=== PATIENT | male | born 1965 | race Caucasian/White ===

== ENCOUNTER 2016-11-14 09:27 | Inpatient (IN) | payer MEDICAID ==
[~2016-11-14] VITALS: Ht 165.1 cm; Wt 74.9 kg
[2016-11-14] MEDS ORDERED: FUROSEMIDE 20 MG INJ IV STA (10:09)
--- NOTE | 2016-11-14 10:36 | ERA ---
ER Documentation Chief Complaint Date/Time DATE: 11/14/16 TIME: 10:33 Chief Complaint SOB X 1 WEEK GETTING WORSE BILAT LOWER EXTREMITIES SWELLING UP HPI This is a 51-year-old male who states that over the past week he has had gradual worsening of shortness of breath. Having dyspnea on exertion and orthopnea. Is also complaining of swelling in his legs is moving up his legs into his groin. He has no history of heart, kidney, liver failure. Has no chest pain no shortness of breath at rest. ROS All systems reviewed and are negative except as per history of present illness. Medications Home Meds Reported Medications Clonidine Hcl* (Clonidine Hcl*) 0.3 Mg Tablet, 0.3 MG PO BID Y for HTN, TAB 11/14/16 Albuterol Sulfate* (Proair HFA*) 8.5 Gm Hfa.aer.ad, 2 PUFF INH Q6H Y for WHEEZING AND SOB, #1 INHALER 11/14/16 Diltiazem Hcl* (Diltiazem XT) 300 Mg Capsule.er, 300 MG PO DAILY, #30 CAP 11/14/16 Allergies Allergies: Coded Allergies: No Known Allergy (Unverified , 11/14/16) PMhx/Soc History of Surgery: No Hx Psychiatric Problems: No Hx Miscellaneous Medical Probl: No Hx Alcohol Use: No Smoking Status: Never smoker FmHx Family History: No coronary disease Physical Exam Vitals Vital Signs Date Time Temp Pulse Resp B/P Pulse Ox O2 Delivery O2 Flow Rate FiO2 11/14/16 10:20 Nasal Cannula 2 11/14/16 09:31 96.7 116 18 143/95 95 Physical Exam Const: Well-developed, well-nourished Head: Atraumatic, normocephalic Eyes: Normal Conjunctiva, PERRLA, EOMI, normal sclera, no nystagmus ENT: Normal External Ears, Nose and Mouth, moist mucus membranes. Neck: Full range of motion. No meningismus, no lymphadenopathy. Resp: [No increased work of breathing, some scant rhonchi in the bases bilaterally cardio: Regular rate and rhythm, no murmurs, S1 S2 present Abd: Soft, non tender x 4, non distended. Normal bowel sounds, no guarding or rebound, no pulsitile abdominal masses or bruits Skin: No petechiae or rashes, no ecchymosis , no maculopapular rash Back: No midline or flank tenderness Ext: No cyanosis,+3 edema to lower extremities bilaterally up to his thigh, FROM x 4, normal inspection, neurovascularly intact x 4 Neur: Awake and alert, STR 5/5 x 4, sensation intact x 4, no focal findings, cerebellum intact Psych: Normal Mood and Affect Result Diagram: 11/14/16 1010 11/14/16 1010 Results 24 hrs Laboratory Tests Test 11/14/16 10:10 White Blood Count 12.110^3/ul Red Blood Count 4.7510^6/ul Hemoglobin 15.1g/dl Hematocrit 48.0% Mean Corpuscular Volume 101.1fl Mean Corpuscular Hemoglobin 31.8pg Mean Corpuscular Hemoglobin Concent 31.5g/dl Red Cell Distribution Width 14.0% Platelet Count 15091^3/UL Mean Platelet Volume 9.3fl Neutrophils % 75.1% Lymphocytes % 15.4% Monocytes % 8.0% Eosinophils % 0.6% Basophils % 0.4% Nucleated Red Blood Cells % 0.0/100WBC Neutrophils # 9.110^3/ul Lymphocytes # 1.910^3/ul Monocytes # 1.010^3/ul Eosinophils # 0.110^3/ul Basophils # 0.110^3/ul Nucleated Red Blood Cells # 0.010^3/ul Sodium Level 141mmol/L Potassium Level 4.3mmol/L Chloride Level 108mmol/L Carbon Dioxide Level 24mmol/L Anion Gap 13 Blood Urea Nitrogen 18mg/dl Creatinine 0.92mg/dl Glucose Level 107mg/dl Calcium Level 8.3mg/dl Total Bilirubin 0.5mg/dl Direct Bilirubin 0.00mg/dl Indirect Bilirubin 0.5mg/dl Aspartate Amino Transf (AST/SGOT) 46IU/L Alanine Aminotransferase (ALT/SGPT) 56IU/L Alkaline Phosphatase 119IU/L Troponin I 0.043ng/ml B-Type Natriuretic Peptide 9710PG/ML Total Protein 6.4g/dl Albumin 3.4g/dl Globulin 3.00g/dl Albumin/Globulin Ratio 1.13 Current Medications Medications (Trade) Dose Ordered Sig/Lynda Route PRN Reason Start Time Stop Time Status Last Admin Dose Admin Furosemide (Lasix) 60 mg ONCE STAT IV 11/14/16 10:09 9/23/17 10:11 DC 11/14/16 10:31 Procedures/MDM PROCEDURE: XR Chest 1 view. CLINICAL INDICATION: Chest pain shortness of breath. TECHNIQUE: AP views of the chest were obtained. COMPARISON: None. FINDINGS: The heart is large. Calcified atherosclerosis is noted in the aorta. Central pulmonary vascular congestion and interstitial prominence is seen in both lungs. Scattered atelectasis is noted in both lungs. Blunting of the left costophrenic angle is noted. No consolidations are identified. No pneumothorax is seen. Osseous structures are intact. IMPRESSION: Cardiomegaly with calcified atherosclerosis in the aorta. Central pulmonary vascular congestion and interstitial prominence in both lungs. Scattered atelectasis in both lungs. Blunting of the left costophrenic angle that may reflect small pleural effusion. RPTAT: AA .Juan Ramon Acharya MD, Date Time Electronically viewed and signed by .Juan Ramon Acharya MD, on 11/14/2016 11:48 .P/ CC: ANGELITA ANDRADE DO EKG: Rate/Rhythm: Sinus tachycardia with PVC QRS, ST, QT: NORMAL NM, QRS, QT] Impression: Sinus tachycardia Patient has evidence of congestive heart failure with elevated BNP and vascular congestion and cardiomegaly on his chest x-ray. He was given IV Lasix 60 mg. Limited patient for new onset CHF for cardiac workup echocardiogram etc. Departure Diagnosis: Primary Impression: CHF (congestive heart failure) Qualified Code: I50.9 - Congestive heart failure, unspecified congestive heart failure chronicity, unspecified congestive heart failure type Condition: Stable ANGELITA ANDRADE DO Nov 14, 2016 10:36
[2016-11-14 10:39] LABS: BASOPHIL # 0.1 10^3/ul (0.0-0.1); BASOPHILS % 0.4 % (0.0-2.0); EOSINOPHILS # 0.1 10^3/ul (0.0-0.5); EOSINOPHILS % 0.6 % (0.0-7.0); HEMOGLOBIN 15.1 g/dl (14.0-18.0); LYMPHOCYTES # 1.9 10^3/ul (0.8-2.9); LYMPHOCYTES % 15.4 % (15.0-51.0); MEAN CORPUSCULAR HEMOGLOBIN 31.8 pg (29.0-33.0); MEAN CORPUSCULAR HGB CONC 31.5 g/dl (32.0-37.0); MEAN CORPUSCULAR VOLUME 101.1 fl (82.0-101.0); MEAN PLATELET VOLUME 9.3 fl (7.4-10.4); NEUTROPHIL # 9.1 10^3/ul (1.6-7.5); NEUTROPHILS % 75.1 % (39.0-77.0); PLATELET COUNT 332 10^3/UL (140-415); RED BLOOD COUNT 4.75 10^6/ul (4.70-6.10); WHITE BLOOD COUNT 12.1 10^3/ul (4.8-10.8)
[2016-11-14 10:54] LABS: ALBUMIN 3.4 g/dl (3.3-4.9); ALBUMIN/GLOBULIN RATIO 1.13; BILIRUBIN,INDIRECT 0.5 mg/dl (0-1.1); BILIRUBIN,TOTAL 0.5 mg/dl (0.2-1.3); CALCIUM 8.3 mg/dl (8.4-10.2); CREATININE 0.92 mg/dl (0.61-1.24); POTASSIUM 4.3 mmol/L (3.5-5.1); TOTAL PROTEIN 6.4 g/dl (6.1-8.1)
[2016-11-14 11:05] LABS: TROPONIN-I 0.043 ng/ml (0.00-0.12)
[2016-11-14] MEDS ORDERED: DILT300C60 PO (11:15)
[2016-11-14] MEDS ORDERED: ALBU8.5H3 INH (11:23)
--- NOTE | 2016-11-14 11:48 | RADRPT ---
PROCEDURE: XR Chest 1 view. CLINICAL INDICATION: Chest pain shortness of breath. TECHNIQUE: AP views of the chest were obtained. COMPARISON: None. FINDINGS: The heart is large. Calcified atherosclerosis is noted in the aorta. Central pulmonary vascular con gestion and interstitial prominence is seen in both lungs. Scattered atelectasis is noted in both stan ngs. Blunting of the left costophrenic angle is noted. No consolidations are identified. No pneumot horax is seen. Osseous structures are intact. IMPRESSION: Cardiomegaly with calcified atherosclerosis in the aorta. Central pulmonary vascular congestion and interstitial prominence in both lungs. Scattered atelectasis in both lungs. Blunting of the left costophrenic angle that may reflect small pleural effusion. RPTAT: AA .Juan Ramon Acharya MD, MD Date Time Electronically viewed and signed by .Juan Ramon Acharya MD, MD on 11/14/2016 11:48 .P/
[2016-11-14] MEDS ORDERED: CLON0.3T PO (13:02)
[2016-11-14] MEDS ORDERED: ACETAMINOPHEN 325 MG TAB PO PRN ×2 (14:00→15:00)
[2016-11-14] MEDS ORDERED: ONDANSETRON 4 MG INJ IV PRN ×2 (14:00→15:00)
--- NOTE | 2016-11-14 14:31 | HP ---
Date/Time of Note Date/Time of Note DATE: 11/14/16 TIME: 14:30 Assessment/Plan VTE Prophylaxis VTE Prophylaxis Intervention: LMWH Lines/Catheters IV [facility] Assessment/Plan Chief Complaint/Hosp Course 1. Acute congestive heart failure exacerbation, systolic versus diastolic dysfunction. The patient has no known history of congestive heart failure. This could be a new onset. The etiology of the patient's congestive heart failure is unclear at this time. The patient is a current drug abuser and alcohol abuser. Patient will be adequately diuresed. A 2D echocardiogram will be obtained to evaluate left ventricle ejection fraction and to evaluate for any wall motion abnormalities. Cardiology consult will be obtained. 2. Essential hypertension. Patient will be started on appropriate antihypertensives. The patient will be started on beta-blockers because of possible underlying CHF as well as underlying sinus tachycardia. The patient will also be started on HEATHER inhibitors. 3. Alcohol abuse. The patient will be started on daily thiamine. He will be started on PRN IV benzodiazepines for any alcohol withdrawal delirium. The patient will be started on tapering dose of Librium. 4. Nicotine use. The patient will be provided with a nicotine patch if he has any symptoms of withdrawal. 5. Substance abuse. Urine drug toxicology will be obtained. The patient was advised on the importance of abstaining from the use of recreational drugs. Plan: The patient will be admitted to inpatient telemetry floor. The patient will be started on a low cholesterol diet. The patient will be started on DVT prophylaxis. The patient will remain a full code. Activities will be as tolerated. The rest of the patient's management will be based on the clinical course, inputs from consultants, and the results of diagnostic studies. Based on the patient's clinical presentation, he most probably requires at least 2 midnights' stay for further management and evaluation of his clinical presentation. The case and management of this patient was fully discussed with Dr. Colon. Problems: HPI/ROS Admit Date/Time Admit Date/Time Hx of Present Illness Reason for admission: Dyspnea. Consultants 1. Kris Gutierres MD, Cardiology. This is a 51-year-old male with past medical history of essential hypertension who is a current tobacco user, alcohol user, and recreational drug user. He came to the emergency room with chief complaint of dyspnea as well as bilateral lower extremity edema that has been going on for the past few days. The patient verbalized that he never had any similar presentations in the past. The patient verbalized a nonproductive cough. The patient denied any chest pain. The patient was complaining of orthopnea. The patient denied any fevers or chills. In the emergency room, the patient's chest x-ray showed cardiomegaly with calcified atherosclerosis in the aorta with the central pulmonary vascular congestion and interstitial prominence in both lungs and scattered atelectasis in both legs. The chest x-ray also revealed blunting of the left costophrenic angle that may reflect a small pleural effusion. Patient was noticed to have a BNP of 9710. Patient was given a single dose of IV Lasix 60 mg in the emergency room. ROS Constitutional: fatigue Eyes: no complaints ENT: no complaints Respiratory: cough, shortness of breath Cardiovascular: edema, orthopenea Gastrointestinal: no complaints Genitourinary: no complaints Musculoskeletal: no complaints Skin: no complaints Neurologic: no complaints Endocrine: no complaints Lymphatic: no complaints Psychological: no complaints Immunologic: no complaints PMH/Family/Social Past Medical History Medical History: hypertension Past Surgical History Past Surgical Hx: no surgical history Family History Significant Family History: heart disease Social History Alcohol Use: heavy Smoking Status: Current every day smoker Drug Use: cocaine (In the past), other (Methamphetamines) Exam/Review of Systems Vital Signs Vitals Vital Signs Date Time Temp Pulse Resp B/P Pulse Ox O2 Delivery O2 Flow Rate FiO2 11/14/16 10:20 Nasal Cannula 2 11/14/16 09:31 96.7 116 18 143/95 95 Exam Exam General: Adequately build 51 year-old male lying in bed in mild to moderate respiratory distress. HEENT: Normocephalic, atraumatic. Eyes: Anicteric sclerae, conjunctivae clear. ENT: Nasal septum midline, oral mucosa moist. Neck supple, JVD noticed. Respiratory: Bilaterally diminished breath sounds. Use of accessory muscles of respiration. B/L rales. Cardiovascular: S1, S2 heard. Regular rate and rhythm. Abdomen: Soft, nontender, and nondistended. Bowel sounds positive in all 4 quadrants. Genitourinary: Deferred. Extremities: No cyanosis, no clubbing. B/L LE 1-2+ pitting edema. Neurologic: Cranial nerves II through XII grossly intact. The patient is awake, alert, and oriented. Skin: Normal skin turgor. No skin rashes. Labs Result Diagram: 11/14/16 1010 11/14/16 1010 Procedures Procedures CXR IMPRESSION: Cardiomegaly with calcified atherosclerosis in the aorta. Central pulmonary vascular congestion and interstitial prominence in both lungs. Scattered atelectasis in both lungs. Blunting of the left costophrenic angle that may reflect small pleural effusion. 12-Lead EKG Sinus tachycardia. PVCs STAR CAMARILLO NP Nov 14, 2016 14:31
[2016-11-14 14:44] VITALS: Ht 165.1 cm; Wt 74.9 kg
[2016-11-14 14:45] VITALS: BP 147/98; PULSE 116; RESP 18
[2016-11-14 14:54] VITALS: PULSE 116
[2016-11-14] MEDS: LISINOPRIL 5 MG TAB PO SCH (14:58)
[2016-11-14] MEDS ORDERED: NACL 0.9% 3 ML SYG IV SCH (15:00)
[2016-11-14 16:10] VITALS: PULSE 126
[2016-11-14] MEDS: NICOTINE (14 MG/24 HR) PATCH TRANSDERM SCH (16:30)
[2016-11-14 16:42] VITALS: BP 110/57; RESP 18
[2016-11-14] MEDS: FUROSEMIDE 40 MG INJ IV SCH (18:03)
[2016-11-14 18:33] LABS: TROPONIN-I 0.045 ng/ml (0.00-0.12)
[2016-11-14 18:35] LABS: CK-MB 5.95 ng/ml (0.0-2.4)
[2016-11-14 19:28] VITALS: BP 152/103; RESP 16
[2016-11-14 20:05] VITALS: PULSE 120
[2016-11-14] MEDS: CHLORDIAZEPOXIDE 25 MG CAP PO SCH (20:52)
[2016-11-14] MEDS: LEVALBUTEROL (NEB) 0.63 MG/3 ML AMP HHN PRN (22:42)
[2016-11-14 22:46] LABS: BARBITURATES Negative (NEGATIVE); BENZODIAZEPINES Negative (NEGATIVE); CANNABINOIDS Negative (NEGATIVE); COCAINE Negative (NEGATIVE); OPIATES Negative (NEGATIVE)
[2016-11-15] VITALS (11 sets, daily range): BP systolic 115–151; BP diastolic 72–108; PULSE 100–108; RESP 16–20
[2016-11-15] MEDS: LORAZEPAM 2 MG INJ IV PRN ×6 (01:45→20:42)
--- NOTE | 2016-11-15 02:22 | CONS ---
DATE OF ADMISSION: 11/14/2016 DATE OF CONSULTATION: 11/14/2016 REFERRING PHYSICIAN: Do Machado MD HISTORY OF PRESENT ILLNESS: Dear Dr. Machado: Thank you very much for asking me to evaluate Mr. Thomas. Mr. Thomas is a 51-year-old male who was admitted through emergency room because of complaints of shortness of breath and increasing leg edema over the last 5 days. He also has been having some orthopnea and dyspnea on exertion. Patient mentioned that he had not had these symptoms before ever. Denies any chest pain, palpitations or dizziness. PAST MEDICAL HISTORY: He has a history of hypertension. SOCIAL HISTORY: He smokes a pack a day, off and on for the last 37 years. He also drinks more than a pink of whiskey every day, has quit off and on in the past and has been doing it for the past 35 years. Also, uses drugs. In the past, he used to use cocaine, now he uses crystal. He used it last time 2 days ago. FAMILY HISTORY: His father had CHF and hypertension. ALLERGIES: HE HAS NO KNOWN ALLERGIES. MEDICATIONS: He is on Cardizem 300 mg once a day, and clonidine 3.2 mg p.o. b.i.d. REVIEW OF SYSTEMS: Otherwise unremarkable. PHYSICAL EXAMINATION: GENERAL: He is conscious, alert, oriented, appears to be in no acute distress. VITAL SIGNS: Reveal a blood pressure of 158/106, heart rate of 114, respiratory rate 44, and he is afebrile. HEENT: Reveals normocephaly. Face: No xanthelasma, no facial droop. NECK: JVP is not raised and carotid pulses with normal upstroke without any bruits or murmurs. No thyromegaly or lymphadenopathy. CHEST: Reveals bilaterally symmetrical. Nontender chest. HEART: Reveals PMI is localized in the fourth ventricular space in the midclavicular line. S1, S2 are regular, and a 1/6 systolic murmur is heard at the apex. No gallop, rub or thrill appreciated. LUNGS: Reveals rare basilar rhonchi. No intercostal retractions are seen. ABDOMEN: Soft, nontender belly with moderate obesity. Bowel sounds present. No organomegaly appreciated. No palpable. No abdominal bruits are heard. EXTREMITIES: Good femoral pulses and weak pedal pulses. No femoral bruits and 1+ pedal edema. No clubbing, no cyanosis. LABORATORY DATA: Reveals that his white count is slightly elevated at 12.1, and hemoglobin is normal at 15.1. Platelet count also normal at 332,000. Chemistries reveal TSH is normal at 3.28, and BNP is elevated at 9710. Sodium, potassium, BUN and creatinine are within normal limits. Chest x-ray shows CHF. EKG shows sinus tachycardia and occasional PVCs with poor R wave progression with possibility of old anterior myocardial infarction. IMPRESSION: Mr. Thomas is a 51-year-old male with a past medical history of hypertension who is admitted now because of leg edema and shortness of breath for the last five days, and chest x-ray showed congestive heart failure and he also has elevated brain natriuretic peptide. In view of the history and physical findings, eventual diagnosis at this stage includes: 1. Shortness of breath and leg edema probably secondary to congestive heart failure. 2. Congestive heart failure, rule out acute myocardial infarction. 3. Abnormal EKG with possible old anteroseptal myocardial infarction. 4. Sinus tachycardia which may be because of low cardiac output. 5. Premature ventricular contractions which may suggest the possibility of ischemia. 6. The leg edema may be because of his being on Cardizem. 7. Uncontrolled hypertension. RECOMMENDATIONS: 1. Patient should be admitted to telemetry. 2. Will continue with the Coreg that you started on this patient along with Lovenox for DVT prophylaxis. Will continue with IV Lasix that you started on this patient as well, and will also continue with the lisinopril that you started and will use Catapres on p.r.n. basis to control his blood pressure and will get a follow up basic metabolic panel and chest x-ray and BNP in the morning, and will also get an echo Doppler study to assess the left ventricular function and to assess the valvular status. Will also obtain serial EKGs and enzymes, and will make further recommendations depending on the patient's progress in the hospital and depending on the results of investigations. Prognosis at this stage is fair. Thank you once again, Dr. Machado, for this kind referral. It is a pleasure working with you. Dictated By: Kris Gutierres MD /allison/radha /Document#: [id number]
[2016-11-15] MEDS: FUROSEMIDE 40 MG INJ IV SCH ×2 (05:53→17:52)
[2016-11-15] MEDS: LEVALBUTEROL (NEB) 0.63 MG/3 ML AMP HHN PRN (08:17)
[2016-11-15 08:29] LABS: BASOPHIL # 0.1 10^3/ul (0.0-0.1); BASOPHILS % 0.5 % (0.0-2.0); EOSINOPHILS # 0.2 10^3/ul (0.0-0.5); EOSINOPHILS % 1.4 % (0.0-7.0); HEMATOCRIT 49.1 % (42.0-52.0); HEMOGLOBIN 15.5 g/dl (14.0-18.0); LYMPHOCYTES # 2.4 10^3/ul (0.8-2.9); LYMPHOCYTES % 23.1 % (15.0-51.0); MEAN CORPUSCULAR HEMOGLOBIN 31.9 pg (29.0-33.0); MEAN CORPUSCULAR HGB CONC 31.6 g/dl (32.0-37.0); MEAN PLATELET VOLUME 9.2 fl (7.4-10.4); MONOCYTE # 0.9 10^3/ul (0.3-0.9); MONOCYTES % 8.5 % (0.0-11.0); NEUTROPHIL # 6.9 10^3/ul (1.6-7.5); PLATELET COUNT 318 10^3/UL (140-415); RED BLOOD COUNT 4.86 10^6/ul (4.70-6.10); RED CELL DISTRIBUTION WIDTH 14.1 % (11.5-14.5); WHITE BLOOD COUNT 10.4 10^3/ul (4.8-10.8)
[2016-11-15 08:38] LABS: INR 1.07; PROTIME 13.9 Sec (12.2-14.2); PT RATIO 1.1
[2016-11-15 08:52] LABS: ALBUMIN 3.2 g/dl (3.3-4.9); ALBUMIN/GLOBULIN RATIO 1.06; BILIRUBIN,INDIRECT 0.8 mg/dl (0-1.1); BILIRUBIN,TOTAL 0.8 mg/dl (0.2-1.3); CALCIUM 8.8 mg/dl (8.4-10.2); CREATININE 1.08 mg/dl (0.61-1.24); POTASSIUM 4.4 mmol/L (3.5-5.1); TOTAL PROTEIN 6.2 g/dl (6.1-8.1)
[2016-11-15] MEDS: ENOXAPARIN 40 MG/0.4 ML SYG SC SCH (09:00)
[2016-11-15] MEDS ORDERED: INFLUENZA VIRUS VACCINE 0.5 ML SYG IM* ONE (09:00)
[2016-11-15] MEDS: NICOTINE (14 MG/24 HR) PATCH TRANSDERM SCH (09:00)
[2016-11-15] MEDS: LISINOPRIL 5 MG TAB PO SCH (09:35)
[2016-11-15] MEDS: THIAMINE 100 MG TAB PO SCH (09:35)
[2016-11-15] MEDS: CHLORDIAZEPOXIDE 25 MG CAP PO SCH ×3 (09:36→20:38)
[2016-11-15 09:38] LABS: TROPONIN-I 0.043 ng/ml (0.00-0.12)
[2016-11-15 09:44] LABS: CHOL/HDL RATIO 4.8 RATIO; CK-MB 4.93 ng/ml (0.0-2.4); MAGNESIUM 1.8 mg/dl (1.7-2.5)
--- NOTE | 2016-11-15 13:17 | PN ---
Date/Time of Note Date/Time of Note DATE: 11/15/16 TIME: 13:11 Assessment/Plan VTE Prophylaxis VTE Prophylaxis Intervention: LMWH Lines/Catheters IV [facility] Peripheral IV Urinary Cath still in place: No Assessment/Plan Chief Complaint/Hosp Course 1. Acute congestive heart failure exacerbation, systolic versus diastolic dysfunction. The patient has no known history of congestive heart failure. Continue aggressive diuresis. Cardiology following. Pending 2D cardiogram. Troponins negative. 2. Essential hypertension. Continue beta blockers and HEATHER inhibitors. 3. Alcohol abuse. Underlying alcohol withdrawal delirium. He will be continued on PRN IV benzodiazepines for any alcohol withdrawal delirium. The patient will be entertained on tapering dose of Librium. 4. Nicotine use. The patient will be provided with a nicotine patch if he has any symptoms of withdrawal. 5. Substance abuse. Urine drug toxicology negative. The patient was advised on the importance of abstaining from the use of recreational drugs. 6. Fluids, electrolytes, and nutrition. Low-cholesterol diet. 7. DVT prophylaxis. Cutaneous Lovenox. 8. Plan. Continue diuresis. Await 2D echocardiogram results. Monitor for sending delirium tremens. May be moved out of Tele if cleared by Cardiology. Case discussed with Dr. Trevino. Plan: The patient will be admitted to inpatient telemetry floor. The patient will be started on a low cholesterol diet. The patient will be started on DVT prophylaxis. The patient will remain a full code. Activities will be as tolerated. The rest of the patient's management will be based on the clinical course, inputs from consultants, and the results of diagnostic studies. Based on the patient's clinical presentation, he most probably requires at least 2 midnights' stay for further management and evaluation of his clinical presentation. The case and management of this patient was fully discussed with Dr. Colon. Problems: Subjective 24 Hr Interval Summary Free Text/Dictation He denies any chest pain. Denies any dyspnea. He complains of being anxious. Exam/Review of Systems Vital Signs Vitals Vital Signs Date Time Temp Pulse Resp B/P Pulse Ox O2 Delivery O2 Flow Rate FiO2 11/15/16 12:08 101 11/15/16 11:58 98.0 18 115/72 98 11/15/16 08:19 21 11/15/16 01:26 3.0 11/14/16 14:45 Room Air Intake and Output 9/23/17 9/23/17 9/24/17 15:00 23:00 07:00 Intake Total 520 ml 380 ml Output Total 1200 ml Balance 520 ml -820 ml Exam General: Adequately build 51 year-old male lying in bed in mild to moderate respiratory distress. HEENT: Normocephalic, atraumatic. Eyes: Anicteric sclerae, conjunctivae clear. ENT: Nasal septum midline, oral mucosa moist. Neck supple. Minimal JVD noticed. Respiratory: Bilaterally diminished breath sounds. No use of accessory muscles of respiration. Cardiovascular: S1, S2 heard. Regular rate and rhythm. Abdomen: Soft, nontender, and nondistended. Bowel sounds positive in all 4 quadrants. Genitourinary: Deferred. Extremities: No cyanosis, no clubbing. B/L LE 1-2+ pitting edema. Neurologic: Cranial nerves II through XII grossly intact. The patient is awake, alert, and oriented. Skin: Normal skin turgor. No skin rashes. Psychologic: Very anxious and restless. Results Result Diagram: 11/15/16 0732 11/15/16 0732 Results 24 hrs Laboratory Tests Test 11/14/16 17:52 11/14/16 22:00 11/15/16 07:32 Creatine Kinase 159 96 Creatine Kinase Index 3.7 5.1 Creatinine Kinase MB (Mass) 5.95 H 4.93 H Troponin I 0.045 0.043 Urine Opiates Screen Negative Urine Barbiturates Negative Urine Amphetamines Screen Negative Urine Benzodiazepines Screen Negative Urine Cocaine Screen Negative Urine Cannabinoids Negative White Blood Count 10.4 Red Blood Count 4.86 Hemoglobin 15.5 Hematocrit 49.1 Mean Corpuscular Volume 101.0 Mean Corpuscular Hemoglobin 31.9 Mean Corpuscular Hemoglobin Concent 31.6 L Red Cell Distribution Width 14.1 Platelet Count 318 Mean Platelet Volume 9.2 Neutrophils % 66.0 Lymphocytes % 23.1 Monocytes % 8.5 Eosinophils % 1.4 Basophils % 0.5 Nucleated Red Blood Cells % 0.0 Neutrophils # 6.9 Lymphocytes # 2.4 Monocytes # 0.9 Eosinophils # 0.2 Basophils # 0.1 Nucleated Red Blood Cells # 0.0 Prothrombin Time 13.9 Prothrombin Time Ratio 1.1 INR International Normalized Ratio 1.07 Activated Partial Thromboplast Time 26.0 Sodium Level 143 Potassium Level 4.4 Chloride Level 104 Carbon Dioxide Level 32 H Anion Gap 11 Blood Urea Nitrogen 25 H Creatinine 1.08 Glucose Level 93 Calcium Level 8.8 Magnesium Level 1.8 Total Bilirubin 0.8 Direct Bilirubin 0.00 Indirect Bilirubin 0.8 Aspartate Amino Transf (AST/SGOT) 45 Alanine Aminotransferase (ALT/SGPT) 51 Alkaline Phosphatase 117 B-Type Natriuretic Peptide 7260 H Total Protein 6.2 Albumin 3.2 L Globulin 3.00 Albumin/Globulin Ratio 1.06 Triglycerides Level 113 Cholesterol Level 146 LDL Cholesterol, Calculated 93 HDL Cholesterol 30 Cholesterol/HDL Ratio 4.8 Medications Medications Current Medications Lisinopril (Zestril) 5 mg DAILY PO Last administered on 11/15/16 09:35; Admin Dose 5 MG; Start 11/14/16 at 14:00 Carvedilol (Coreg) 3.125 mg BID PO Last administered on 11/15/16 09:36; Admin Dose 3.125 MG; Start 11/14/16 at 21:00 Ondansetron HCl (Zofran Inj) 4 mg Q6H PRN IV NAUSEA AND/OR VOMITING; Start at 15:00 Acetaminophen (Tylenol Tab) 650 mg Q6H PRN PO PAIN LEVEL 1-3 OR FEVER; Start at 15:00 Acetaminophen/ Hydrocodone Bitart (Rush (5/325)) 1 tab Q6H PRN PO PAIN LEVEL 4 -6; Start 11/14/16 at 15:00 Enoxaparin Sodium (Lovenox) 40 mg DAILY SC ; Start 11/15/16 at 09:00 Thiamine HCl (Vitamin B1) 100 mg DAILY PO Last administered on 11/15/16 09:35 ; Admin Dose 100 MG; Start 11/15/16 at 09:00 Lorazepam (Ativan) 1 mg Q2H PRN IV Anxiety Last administered on 11/15/16 09:42 ; Admin Dose 1 MG; Start 11/14/16 at 15:30 Chlordiazepoxide (Librium) 25 mg TID PO Last administered on 11/15/16 09:36; Admin Dose 25 MG; Start 11/14/16 at 21:00 Nicotine (Nicoderm 14 Mg/ 24hr) 1 patch DAILY TRANSDERM ; Start 11/14/16 at 16: 30 Clonidine (Catapres) 0.1 mg Q4H PRN GTB HTN; Start 11/14/16 at 16:00 STAR CAMARILLO NP Nov 15, 2016 13:17
--- NOTE | 2016-11-15 14:45 | CONS ---
Date/Time of Note Date/Time of Note DATE: 11/15/16 TIME: 14:39 Assessment/Plan Assessment/Plan Additional Assessment/Plan 1. Shortness of breath and leg edema probably secondary to congestive heart failure. 2. Congestive heart failure: improving 3. Abnormal EKG with possible old anteroseptal myocardial infarction. 4. Sinus tachycardia which may be because of low cardiac output. 5. Premature ventricular contractions: better 6. The leg edema may be because of his being on Cardizem or CHF 7. Controlled Hypertension. 8.High BNP 2nd to CHF RECOMMENDATIONS: 1. OK to transfer to med surg 2. BNP in AM Consultation Date/Type/Reason Admit Date/Time Nov 14, 2016 at 14:45 Initial Consult Date 24 HR Interval Summary Free Text/Dictation ROS: SOB and edema are better No fever, no chills, no nausea, no vomiting, no diarrhea/constipation No recent weight changes No palpitations No chest pain, No dizziness, blurred vision No thirst, no heat or cold intolerance Exam/Review of Systems Vital Signs Vitals Vital Signs Date Time Temp Pulse Resp B/P Pulse Ox O2 Delivery O2 Flow Rate FiO2 11/15/16 12:08 101 11/15/16 11:58 98.0 18 115/72 98 11/15/16 08:19 21 11/15/16 01:26 3.0 11/14/16 14:45 Room Air Intake and Output 11/14/16 11/14/16 11/15/16 15:00 23:00 07:00 Intake Total 520 ml 380 ml Output Total 1200 ml Balance 520 ml -820 ml Exam General: WN/WD HEENT: Unicetric/atraumatic/ no assymetry NECK: JVD not elevated, no thyromegaly, carotids revealed normal upstrokes Lymph: no lymphadenopathy HEART: regular with no S3, I/ systolic murmur at apex LUNGS: clear ABD: soft, NT, ND, +BS, no organomegaly Neuro: no deficit SKIN: no leisons EXT: 1+ edema Results Result Diagram: 11/15/16 0732 11/15/16 0732 Results 24 hrs Laboratory Tests Test 11/14/16 17:52 11/14/16 22:00 11/15/16 07:32 Creatine Kinase 159 96 Creatine Kinase Index 3.7 5.1 Creatinine Kinase MB (Mass) 5.95 H 4.93 H Troponin I 0.045 0.043 Urine Opiates Screen Negative Urine Barbiturates Negative Urine Amphetamines Screen Negative Urine Benzodiazepines Screen Negative Urine Cocaine Screen Negative Urine Cannabinoids Negative White Blood Count 10.4 Red Blood Count 4.86 Hemoglobin 15.5 Hematocrit 49.1 Mean Corpuscular Volume 101.0 Mean Corpuscular Hemoglobin 31.9 Mean Corpuscular Hemoglobin Concent 31.6 L Red Cell Distribution Width 14.1 Platelet Count 318 Mean Platelet Volume 9.2 Neutrophils % 66.0 Lymphocytes % 23.1 Monocytes % 8.5 Eosinophils % 1.4 Basophils % 0.5 Nucleated Red Blood Cells % 0.0 Neutrophils # 6.9 Lymphocytes # 2.4 Monocytes # 0.9 Eosinophils # 0.2 Basophils # 0.1 Nucleated Red Blood Cells # 0.0 Prothrombin Time 13.9 Prothrombin Time Ratio 1.1 INR International Normalized Ratio 1.07 Activated Partial Thromboplast Time 26.0 Sodium Level 143 Potassium Level 4.4 Chloride Level 104 Carbon Dioxide Level 32 H Anion Gap 11 Blood Urea Nitrogen 25 H Creatinine 1.08 Glucose Level 93 Calcium Level 8.8 Magnesium Level 1.8 Total Bilirubin 0.8 Direct Bilirubin 0.00 Indirect Bilirubin 0.8 Aspartate Amino Transf (AST/SGOT) 45 Alanine Aminotransferase (ALT/SGPT) 51 Alkaline Phosphatase 117 B-Type Natriuretic Peptide 7260 H Total Protein 6.2 Albumin 3.2 L Globulin 3.00 Albumin/Globulin Ratio 1.06 Triglycerides Level 113 Cholesterol Level 146 LDL Cholesterol, Calculated 93 HDL Cholesterol 30 Cholesterol/HDL Ratio 4.8 Medications Medications Current Medications Lisinopril (Zestril) 5 mg DAILY PO Last administered on 11/15/16 09:35; Admin Dose 5 MG; Start 11/14/16 at 14:00 Carvedilol (Coreg) 3.125 mg BID PO Last administered on 11/15/16 09:36; Admin Dose 3.125 MG; Start 11/14/16 at 21:00 Ondansetron HCl (Zofran Inj) 4 mg Q6H PRN IV NAUSEA AND/OR VOMITING; Start at 15:00 Acetaminophen (Tylenol Tab) 650 mg Q6H PRN PO PAIN LEVEL 1-3 OR FEVER; Start at 15:00 Acetaminophen/ Hydrocodone Bitart ([place] (5/325)) 1 tab Q6H PRN PO PAIN LEVEL 4 -6; Start 11/14/16 at 15:00 Enoxaparin Sodium (Lovenox) 40 mg DAILY SC ; Start 11/15/16 at 09:00 Thiamine HCl (Vitamin B1) 100 mg DAILY PO Last administered on 11/15/16 09:35 ; Admin Dose 100 MG; Start 11/15/16 at 09:00 Lorazepam (Ativan) 1 mg Q2H PRN IV Anxiety Last administered on 11/15/16 12:44 ; Admin Dose 1 MG; Start 11/14/16 at 15:30 Chlordiazepoxide (Librium) 25 mg TID PO Last administered on 11/15/16 14:06; Admin Dose 25 MG; Start 11/14/16 at 21:00 Nicotine (Nicoderm 14 Mg/ 24hr) 1 patch DAILY TRANSDERM ; Start 11/14/16 at 16: 30 Clonidine (Catapres) 0.1 mg Q4H PRN GTB HTN; Start 11/14/16 at 16:00 JORDAN PARIKH MD Nov 15, 2016 14:45
[2016-11-16] VITALS (9 sets, daily range): BP systolic 100–142; BP diastolic 71–98; PULSE 113–121; RESP 16–20
[2016-11-16] MEDS: FUROSEMIDE 40 MG INJ IV SCH ×2 (05:36→17:53)
[2016-11-16] MEDS: LORAZEPAM 2 MG INJ IV PRN ×2 (05:37→11:55)
[2016-11-16 07:50] LABS: BASOPHIL # 0.1 10^3/ul (0.0-0.1); BASOPHILS % 0.4 % (0.0-2.0); EOSINOPHILS # 0.1 10^3/ul (0.0-0.5); EOSINOPHILS % 0.8 % (0.0-7.0); HEMATOCRIT 50.4 % (42.0-52.0); LYMPHOCYTES # 1.3 10^3/ul (0.8-2.9); LYMPHOCYTES % 9.7 % (15.0-51.0); MEAN CORPUSCULAR HEMOGLOBIN 31.7 pg (29.0-33.0); MEAN CORPUSCULAR HGB CONC 31.7 g/dl (32.0-37.0); MEAN PLATELET VOLUME 8.8 fl (7.4-10.4); MONOCYTE # 1.1 10^3/ul (0.3-0.9); MONOCYTES % 7.8 % (0.0-11.0); NEUTROPHILS % 80.8 % (39.0-77.0); PLATELET COUNT 304 10^3/UL (140-415); RED BLOOD COUNT 5.04 10^6/ul (4.70-6.10); RED CELL DISTRIBUTION WIDTH 13.9 % (11.5-14.5); WHITE BLOOD COUNT 13.7 10^3/ul (4.8-10.8)
[2016-11-16 08:16] LABS: CALCIUM 9.1 mg/dl (8.4-10.2); CREATININE 1.12 mg/dl (0.61-1.24); POTASSIUM 3.5 mmol/L (3.5-5.1)
[2016-11-16 08:20] LABS: MAGNESIUM 1.6 mg/dl (1.7-2.5); PHOSPHORUS 4.4 mg/dl (2.5-4.9)
[2016-11-16] MEDS: LISINOPRIL 5 MG TAB PO SCH (08:30)
[2016-11-16] MEDS: THIAMINE 100 MG TAB PO SCH (08:31)
--- NOTE | 2016-11-16 08:39 | RADRPT ---
Vent Rate: 111 bpm RR Interval: 0 msec MN Interval: 132 msec QRS Duration: 90 msec QT Interval: 356 msec QTC Interval: 484 msec P-R-T Br[place]: 50 - 85 - 65 degrees Sinus tachycardia Possible Left atrial enlargement Borderline ECG Electronically Signed By: Constantin Calderon [id number]
[2016-11-16] MEDS: ENOXAPARIN 40 MG/0.4 ML SYG SC SCH (08:43)
[2016-11-16] MEDS: NICOTINE (14 MG/24 HR) PATCH TRANSDERM SCH (08:47)
[2016-11-16] MEDS: CHLORDIAZEPOXIDE 25 MG CAP PO SCH ×2 (08:47→22:16)
[2016-11-16] MEDS ORDERED: MAGNESIUM SULFATE 2 GM/50 ML 50 ML IVPB ONE (11:00)
[2016-11-16] MEDS ORDERED: FLUMAZENIL 0.5 MG INJ ONE (13:18)
[2016-11-16] MEDS ORDERED: CHLORDIAZEPOXIDE 25 MG CAP PO STA (13:41)
[2016-11-16 13:46] LABS: AADO2 Arterial 287.8 mmHg (7.0-24.0); Allen Test ACCEPTAB; Arterial Base Excess 5.1 mmol/L (-3.0-3); Arterial Fraction of Oxyhgb 96.5 % (93.0-99.0); Arterial HCO3 29.3 mmol/L (22.0-26.0); Arterial MetHb 0.3 % (0.0-1.5); Arterial Total Hemglobin 16.3 g/dl (12.0-18.0); MODE MASK - SIMPLE
--- NOTE | 2016-11-16 14:20 | RADRPT ---
PROCEDURE: Chest 1 views. CLINICAL INDICATION: Shortness of breath. TECHNIQUE: AP views of the chest was obtained. COMPARISON: November 14, 2016 FINDINGS: The heart is large. Blunting of the left costophrenic angle is identified. Atelectasis is noted at t he left lung base. Atelectasis is seen at the right lung base. No consolidations are identified. N o pneumothorax is seen. Osseous structures are intact. IMPRESSION: Cardiomegaly . Stable blunting of the left costophrenic angle that may reflect small pleural effusion. Atelectasis at the lung bases. RPTAT: AA .Juan Ramon Acharya MD, MD Date Time Electronically viewed and signed by .Juan Ramon Acharya MD, on 11/16/2016 14:20 .P/
--- NOTE | 2016-11-16 14:38 | PN ---
Date/Time of Note Date/Time of Note DATE: 11/16/16 TIME: 14:30 Assessment/Plan VTE Prophylaxis VTE Prophylaxis Intervention: SCD's Lines/Catheters IV Catheter Type (from Rust): Saline Lock Urinary Cath still in place: No Assessment/Plan Chief Complaint/Hosp Course Assessment and plan 1. Acute CHF exacerbation. Cardiology is following. Echocardiogram pending. Troponins negative so far. Follow-up cardiology recommendations. 2. Essential hypertension. Continue antihypertensives and adjust 3. History of alcohol abuse. Suspect underlying alcohol withdrawal. Continue with benzodiazepines as needed. Continue Librium. 4. Cigarette smoking. Patient educated about cessation. Refusing nicotine patch at this time 5. History of substance abuse. Patient educated about illicit drug use cessation. Disposition and plan: Patient noted with increased shortness of breath at this time. More tachycardic. Suspect going through alcohol withdrawal. Transfer to telemetry for further monitoring. Continue with O2 supplement. Discussed plan of care with Dr. De La Garza Problems: Subjective 24 Hr Interval Summary Free Text/Dictation With worse breathing at this time Exam/Review of Systems Vital Signs Vitals Vital Signs Date Time Temp Pulse Resp B/P Pulse Ox O2 Delivery O2 Flow Rate FiO2 11/16/16 13:15 Nasal Cannula 4.0 11/16/16 10:28 97.7 115 20 112/73 93 11/15/16 08:19 21 Intake and Output 11/15/16 11/15/16 11/16/16 15:00 23:00 07:00 Intake Total 800 ml 500 ml Output Total 2700 ml 2550 ml Balance -1900 ml -2050 ml Exam Constitutional: oriented Psych: anxiety Head: normocephalic Eyes: nl conjunctiva Respiratory: diminished breath sounds Cardiovascular: other (tachycardic) Musculoskeletal: nl extremities to inspection Neurological: DATA ENTRY COORDINATOR II-XII intact, nl mental status, nl speech Results Result Diagram: 11/16/16 0720 11/16/16 0721 Results 24 hrs Laboratory Tests Test 11/16/16 07:20 11/16/16 07:21 11/16/16 13:18 11/16/16 13:37 White Blood Count 13.7 #H Red Blood Count 5.04 Hemoglobin 16.0 Hematocrit 50.4 Mean Corpuscular Volume 100.0 Mean Corpuscular Hemoglobin 31.7 Mean Corpuscular Hemoglobin Concent 31.7 L Red Cell Distribution Width 13.9 Platelet Count 304 Mean Platelet Volume 8.8 Neutrophils % 80.8 H Lymphocytes % 9.7 L Monocytes % 7.8 Eosinophils % 0.8 Basophils % 0.4 Nucleated Red Blood Cells % 0.0 Neutrophils # 11.0 H Lymphocytes # 1.3 Monocytes # 1.1 H Eosinophils # 0.1 Basophils # 0.1 Nucleated Red Blood Cells # 0.0 Sodium Level 141 Potassium Level 3.5 Chloride Level 101 Carbon Dioxide Level 35 H Anion Gap 9 Blood Urea Nitrogen 26 H Creatinine 1.12 Glucose Level 118 Calcium Level 9.1 Phosphorus Level 4.4 Magnesium Level 1.6 L B-Type Natriuretic Peptide 6660 H Bedside Glucose 145 Blood Gas Specimen Source Blood arterial Arterial Blood Date Drawn 11/16/2016 1:35:05 PM Arterial Blood pH (Temp corrected) 7.469 H Arterial Blood pCO2 (Temp correct) 41.3 Arterial Blood pO2 (Temp corrected) 101.8 H Arterial Blood HCO3 29.3 H Arterial Blood Base Excess 5.1 H Arterial Blood Oxygen Saturation 97.8 Shyam Test ACCEPTAB Arterial Blood Gas Puncture Site Right Radial Arterial Blood Carboxyhemoglobin 1.0 Arterial Blood Methemoglobin 0.3 Blood Gas A-a O2 Differential 287.8 H Oxyhemoglobin Percent 96.5 Total Hemoglobin 16.3 Blood Gas Temperature 37.0 Blood Gas Modality MASK - SIMPLE FiO2 61.0 Blood Gas Notified Whom JLD Blood Gas Notified Time 11/16/2016 1:46:00 PM Medications Medications Current Medications Lisinopril (Zestril) 5 mg DAILY PO Last administered on 11/16/16 08:30; Admin Dose 5 MG; Start 11/14/16 at 14:00 Ondansetron HCl (Zofran Inj) 4 mg Q6H PRN IV NAUSEA AND/OR VOMITING; Start at 15:00 Acetaminophen (Tylenol Tab) 650 mg Q6H PRN PO PAIN LEVEL 1-3 OR FEVER; Start at 15:00 Acetaminophen/ Hydrocodone Bitart ([place] (5/325)) 1 tab Q6H PRN PO PAIN LEVEL 4 -6; Start 11/14/16 at 15:00 Enoxaparin Sodium (Lovenox) 40 mg DAILY SC Last administered on 11/16/16 08:43 ; Admin Dose 40 MG; Start 11/15/16 at 09:00 Thiamine HCl (Vitamin B1) 100 mg DAILY PO Last administered on 11/16/16 08:31 ; Admin Dose 100 MG; Start 11/15/16 at 09:00 Nicotine (Nicoderm 14 Mg/ 24hr) 1 patch DAILY TRANSDERM ; Start 11/14/16 at 16: 30 Clonidine (Catapres) 0.1 mg Q4H PRN GTB HTN; Start 11/14/16 at 16:00 Chlordiazepoxide (Librium) 50 mg TID PO ; Start 11/16/16 at 21:00 Lorazepam (Ativan) 1 mg Q1HWA PRN IV Anxiety; Start 11/16/16 at 14:00 Carvedilol (Coreg) 3.125 mg ONCE ONCE PO Last administered on 11/16/16 14:21 ; Admin Dose 3.125 MG; Start 11/16/16 at 14:30; Stop 11/16/16 at 14:31 Carvedilol (Coreg) 6.25 mg BID PO ; Start 11/16/16 at 21:00 DOMINIQUE MEDINA Nov 16, 2016 14:38
--- NOTE | 2016-11-16 15:10 | RADRPT ---
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 Location: [address] Ref. Physician: STAR CAMARILLO Quality: Adequate Procedures: Transthoracic echocardiogram with complete 2D, M-Mode, and doppler examination. Indications: Evaluate Left Ventricular function. 2D/M Mode Doppler Measurement Value Normal Ranges Measurement Value Normal Ranges LVIDd 2D 6.2 3.5 - 5.6 cm AV Peak Bryn 1.2 m/sec LVIDs 2D 5.5 2.1 - 4.1 cm AV Peak PG 6.0 mmHg FS 2D 11.4 % LVOT Peak Bryn 0.6 m/sec LVPWd 2D 1.1 0.6 - 1.1 cm LVOT Peak PG 1.0 mmHg IVSd 2D 1.1 0.6 - 1.1 cm MV E Peak Bryn 1.0 m/sec IVS/LVPW 2D 1.0 MV Decel Time 127 msec AoR Diam 2D 2.3 2.0 - 3.7 cm MR Peak PG 98.0 mmHg LA/Ao 2D 2 0 - 1 MR Peak Bryn 4.9 m/sec EDV 2D 234.0 cm3 TR Peak Bryn 2.8 m/sec ESV 2D 163.0 cm3 TR Peak PG 31.0 mmHg LA Dimen 2D 4.1 2.3 - 4.0 cm RVSP 39.0 mmHg Findings Left Ventricle: Normal left ventricular wall thickness. Mild enlargement of left ventricle cavity. Severe global left ventricular systolic dysfunction. Ejection fraction is visually estimated at 25 %. Abnormal Diastolic Function. Right Ventricle: Normal right ventricular size. Mild right ventricular systolic dysfunction. Left Atrium: There is mild enlargement of left atrium. Right Atrium: The right atrium is normal in size. Mitral Valve: Mild mitral leaflet calcification. Mild mitral annular calcification. Mild to moderate mitral valve regurgitation. Aortic Valve: No significant aortic stenosis or insufficiency. Aortic cusps appear mildly calcified. Tricuspid Valve: Normal appearance of the tricuspid valve. Estimated peak PA systolic pressure 39 mmHg. There is mild to moderate tricuspid regurgitation. Pulmonic Valve: Normal pulmonic valve appearance. There is trace pulmonic regurgitation. Pericardium: Normal pericardium with no significant pericardial effusion. Aorta: Normal aortic root. IVC: Normal size with poor respiratory collapse consistent with elevated right atrial pressure. Conclusions 1.Normal left ventricular wall thickness. Mild enlargement of left ventricle cavity. Severe global left ventricular systolic dysfunction. Ejection fraction is visually estimated at 20 %. Abnormal Diastolic Function. 2.There is mild enlargement of left atrium. 3.Mild mitral leaflet calcification. Mild mitral annular calcification. Mild to moderate mitral valve regurgitation. 4.Normal appearance of the tricuspid valve. Estimated peak PA systolic pressure 40 mmHg. There is mild to moderate tricuspid regurgitation. 5.Normal size with poor respiratory collapse consistent with elevated right atrial pressure. 6.Dilated Cardiomyopathy. Electronically Signed By: Tracey Rosales 16-Nov-2016 15:09:13 -0700 Patient Name: RAFAEL CHANG Study Date: 15-Nov-2016 [id number]
--- NOTE | 2016-11-16 18:38 | CONS ---
Date/Time of Note Date/Time of Note DATE: 11/16/16 TIME: 18:30 Assessment/Plan Assessment/Plan Chief Complaint/Hosp Course IMP: 1.CHF-EF 20-25% by echo read this admission and thus systolic acute on chronic- Neg trop x 3 2.HTN 3.ETOH/substance abuse abuse 4.LE edema 5.Pos Tob REcc: -Tele -serial ecg -Continue coreg with slight increase -Continue zestril -Dose IVP digoxin to improve HR and contractility -Nicotine patch/smoking cessation -Continue benzo's Problems: Consultation Date/Type/Reason Admit Date/Time Nov 14, 2016 at 14:45 Initial Consult Date 11/15/2016 Type of Consultation: cardiology Reason for Consultation CHF/Cmy Referring Provider: DOMINIQUE MEDINA Exam/Review of Systems Vital Signs Vitals Vital Signs Date Time Temp Pulse Resp B/P Pulse Ox O2 Delivery O2 Flow Rate FiO2 11/16/16 16:00 113 11/16/16 15:20 Simple Mask 6.0 11/16/16 15:15 98.0 18 121/88 98 11/15/16 08:19 21 Intake and Output 11/15/16 11/15/16 11/16/16 15:00 23:00 07:00 Intake Total 800 ml 500 ml Output Total 2700 ml 2550 ml Balance -1900 ml -2050 ml Exam Review of Systems: CONSTITUTIONAL: No fevers, chills. PULMONARY: mild sob CARDIOVASCULAR: No chest pain/palpitations GASTROINTESTINAL: No nausea/vomiting. GENITOURINARY: No hematuria/dysuria. MUSCULOSKELETAL: No myagias/arthalgias. PSYCHIATRIC: The patient denies depression. NEUROLOGIC: No weakness Constitutional: other (sleeping) Psych: no complaints Head: normocephalic ENMT: mucosa pink and moist Neck: jvd (9-10cm water), supple Respiratory: diminished breath sounds (at bases/B) Cardiovascular: regular rate and rhythm Gastrointestinal: non-tender, soft Musculoskeletal: muscle tone (normal) Extremities: pitting pedal edema (bilateral) Results Result Diagram: 11/16/16 0720 11/16/16 0721 Results 24 hrs Laboratory Tests Test 11/16/16 07:20 11/16/16 07:21 11/16/16 13:18 11/16/16 13:37 White Blood Count 13.7 #H Red Blood Count 5.04 Hemoglobin 16.0 Hematocrit 50.4 Mean Corpuscular Volume 100.0 Mean Corpuscular Hemoglobin 31.7 Mean Corpuscular Hemoglobin Concent 31.7 L Red Cell Distribution Width 13.9 Platelet Count 304 Mean Platelet Volume 8.8 Neutrophils % 80.8 H Lymphocytes % 9.7 L Monocytes % 7.8 Eosinophils % 0.8 Basophils % 0.4 Nucleated Red Blood Cells % 0.0 Neutrophils # 11.0 H Lymphocytes # 1.3 Monocytes # 1.1 H Eosinophils # 0.1 Basophils # 0.1 Nucleated Red Blood Cells # 0.0 Sodium Level 141 Potassium Level 3.5 Chloride Level 101 Carbon Dioxide Level 35 H Anion Gap 9 Blood Urea Nitrogen 26 H Creatinine 1.12 Glucose Level 118 Calcium Level 9.1 Phosphorus Level 4.4 Magnesium Level 1.6 L B-Type Natriuretic Peptide 6660 H Bedside Glucose 145 Blood Gas Specimen Source Blood arterial Arterial Blood Date Drawn 11/16/2016 1:35:05 PM Arterial Blood pH (Temp corrected) 7.469 H Arterial Blood pCO2 (Temp correct) 41.3 Arterial Blood pO2 (Temp corrected) 101.8 H Arterial Blood HCO3 29.3 H Arterial Blood Base Excess 5.1 H Arterial Blood Oxygen Saturation 97.8 Shyam Test ACCEPTAB Arterial Blood Gas Puncture Site Right Radial Arterial Blood Carboxyhemoglobin 1.0 Arterial Blood Methemoglobin 0.3 Blood Gas A-a O2 Differential 287.8 H Oxyhemoglobin Percent 96.5 Total Hemoglobin 16.3 Blood Gas Temperature 37.0 Blood Gas Modality MASK - SIMPLE FiO2 61.0 Blood Gas Notified Whom JLD Blood Gas Notified Time 11/16/2016 1:46:00 PM Test 11/16/16 13:53 Lactic Acid Level 1.7 Ethyl Alcohol Level < 10.0 Medications Medications Current Medications Lisinopril (Zestril) 5 mg DAILY PO Last administered on 11/16/16t 08:30; Admin Dose 5 MG; Start 11/14/16 at 14:00 Ondansetron HCl (Zofran Inj) 4 mg Q6H PRN IV NAUSEA AND/OR VOMITING; Start at 15:00 Acetaminophen (Tylenol Tab) 650 mg Q6H PRN PO PAIN LEVEL 1-3 OR FEVER; Start at 15:00 Acetaminophen/ Hydrocodone Bitart ([place] (5/325)) 1 tab Q6H PRN PO PAIN LEVEL 4 -6; Start 11/14/16 at 15:00 Enoxaparin Sodium (Lovenox) 40 mg DAILY SC Last administered on 11/16/16 08:43 ; Admin Dose 40 MG; Start 11/15/16 at 09:00 Thiamine HCl (Vitamin B1) 100 mg DAILY PO Last administered on 11/16/16 08:31 ; Admin Dose 100 MG; Start 11/15/16 at 09:00 Nicotine (Nicoderm 14 Mg/ 24hr) 1 patch DAILY TRANSDERM ; Start 11/14/16 at 16: 30 Clonidine (Catapres) 0.1 mg Q4H PRN GTB HTN; Start 11/14/16 at 16:00 Chlordiazepoxide (Librium) 50 mg TID PO ; Start 11/16/16 at 21:00 Lorazepam (Ativan) 1 mg Q1HWA PRN IV Anxiety; Start 11/16/16 at 14:00 Carvedilol (Coreg) 6.25 mg BID PO ; Start 11/16/16 at 21:00 RAFAEL RUVALCABA Nov 16, 2016 18:38
[2016-11-16] MEDS: DIGOXIN 500 MCG INJ IV SCH (19:52)
[2016-11-17] VITALS (12 sets, daily range): BP systolic 100–134; BP diastolic 66–92; PULSE 97–111; RESP 18–22
[2016-11-17] MEDS: DIGOXIN 500 MCG INJ IV SCH (01:31)
[2016-11-17] MEDS: FUROSEMIDE 40 MG INJ IV SCH ×2 (05:29→18:44)
[2016-11-17 08:04] LABS: BASOPHILS % 0.3 % (0.0-2.0); EOSINOPHILS # 0.1 10^3/ul (0.0-0.5); EOSINOPHILS % 0.8 % (0.0-7.0); HEMATOCRIT 47.8 % (42.0-52.0); HEMOGLOBIN 14.6 g/dl (14.0-18.0); LYMPHOCYTES # 2.1 10^3/ul (0.8-2.9); LYMPHOCYTES % 17.3 % (15.0-51.0); MEAN CORPUSCULAR HEMOGLOBIN 30.9 pg (29.0-33.0); MEAN CORPUSCULAR HGB CONC 30.5 g/dl (32.0-37.0); MEAN CORPUSCULAR VOLUME 101.1 fl (82.0-101.0); MEAN PLATELET VOLUME 9.7 fl (7.4-10.4); MONOCYTE # 1.1 10^3/ul (0.3-0.9); MONOCYTES % 9.4 % (0.0-11.0); NEUTROPHIL # 8.7 10^3/ul (1.6-7.5); NEUTROPHILS % 71.6 % (39.0-77.0); PLATELET COUNT 258 10^3/UL (140-415); RED BLOOD COUNT 4.73 10^6/ul (4.70-6.10); RED CELL DISTRIBUTION WIDTH 14.1 % (11.5-14.5); WHITE BLOOD COUNT 12.2 10^3/ul (4.8-10.8)
[2016-11-17 08:43] LABS: CALCIUM 8.7 mg/dl (8.4-10.2); CREATININE 1.21 mg/dl (0.61-1.24); MAGNESIUM 1.9 mg/dl (1.7-2.5); POTASSIUM 3.6 mmol/L (3.5-5.1)
[2016-11-17] MEDS: THIAMINE 100 MG TAB PO SCH (09:23)
[2016-11-17] MEDS: LISINOPRIL 5 MG TAB PO SCH (09:24)
[2016-11-17] MEDS: NICOTINE (14 MG/24 HR) PATCH TRANSDERM SCH (09:25)
[2016-11-17] MEDS: ENOXAPARIN 40 MG/0.4 ML SYG SC SCH (09:27)
--- NOTE | 2016-11-17 09:32 | CONS ---
Date/Time of Note Date/Time of Note DATE: 11/17/16 TIME: 09:30 Assessment/Plan Assessment/Plan Additional Assessment/Plan 1.CHF-EF 20-25% by echo read this admission and thus systolic acute on chronic- Neg trop x 3 - now with increas tach and SOB, con;t tele monitoring 2.HTN - well rx 3.ETOH/substance abuse abuse - con't DT prophylaxis 4.LE edema - better, satble urine output 5.Pos Tob - d/c advised Consultation Date/Type/Reason Admit Date/Time Nov 14, 2016 at 14:45 Initial Consult Date Type of Consultation: cardiology Referring Provider: DOMINIQUE MEDINA 24 HR Interval Summary Free Text/Dictation To tele day prior - sinus tach - cnon't TD prophylaxis and keep euvolemic as tolerated ROS: No fever, no chills, no nausea, no vomiting, no diarrhea/constipation No recent weight changes No chest pain, no PND, no orthopnea + SOB No dizziness, blurred vision No thirst, no heat or cold intolerance Exam/Review of Systems Vital Signs Vitals Vital Signs Date Time Temp Pulse Resp B/P Pulse Ox O2 Delivery O2 Flow Rate FiO2 11/17/16 08:00 111 11/17/16 07:56 97.8 22 118/81 99 11/17/16 04:00 Nasal Cannula 5.0 11/15/16 08:19 21 Intake and Output 11/16/16 11/16/16 11/17/16 15:00 23:00 07:00 Intake Total 300 ml 400 ml 600 ml Output Total 600 ml 350 ml 900 ml Balance -300 ml 50 ml -300 ml Exam General: WN/WD/NAD, AOx 2-3 HEENT: Unicetric/atraumatic/EOMI (follow commands) NECK: JVD elevated, no thyromegaly Lymph: no lymphadenopathy HEART: regular with no S3, II/ systolic murmur at apex, PMI L LUNGS: Coarse sounds ABD: soft, NT, ND, +BS : Intact Neuro: non focal SKIN: chronic changes EXT: trace edema Results Result Diagram: 11/17/16 0714 11/17/1614 Results 24 hrs Laboratory Tests Test 11/16/16 13:18 11/16/16 13:37 11/16/16 13:53 11/17/16 07:14 Bedside Glucose 145 Blood Gas Specimen Source Blood arterial Arterial Blood Date Drawn 11/16/2016 1:35:05 PM Arterial Blood pH (Temp corrected) 7.469 H Arterial Blood pCO2 (Temp correct) 41.3 Arterial Blood pO2 (Temp corrected) 101.8 H Arterial Blood HCO3 29.3 H Arterial Blood Base Excess 5.1 H Arterial Blood Oxygen Saturation 97.8 Shyam Test ACCEPTAB Arterial Blood Gas Puncture Site Right Radial Arterial Blood Carboxyhemoglobin 1.0 Arterial Blood Methemoglobin 0.3 Blood Gas A-a O2 Differential 287.8 H Oxyhemoglobin Percent 96.5 Total Hemoglobin 16.3 Blood Gas Temperature 37.0 Blood Gas Modality MASK - SIMPLE FiO2 61.0 Blood Gas Notified Whom JLD Blood Gas Notified Time 11/16/2016 1:46:00 PM Lactic Acid Level 1.7 Ethyl Alcohol Level < 10.0 White Blood Count 12.2 H Red Blood Count 4.73 Hemoglobin 14.6 Hematocrit 47.8 Mean Corpuscular Volume 101.1 H Mean Corpuscular Hemoglobin 30.9 Mean Corpuscular Hemoglobin Concent 30.5 L Red Cell Distribution Width 14.1 Platelet Count 258 Mean Platelet Volume 9.7 Neutrophils % 71.6 Lymphocytes % 17.3 Monocytes % 9.4 Eosinophils % 0.8 Basophils % 0.3 Nucleated Red Blood Cells % 0.0 Neutrophils # 8.7 H Lymphocytes # 2.1 Monocytes # 1.1 H Eosinophils # 0.1 Basophils # 0.0 Nucleated Red Blood Cells # 0.0 Sodium Level 136 Potassium Level 3.6 Chloride Level 99 Carbon Dioxide Level 34 H Anion Gap 7 L Blood Urea Nitrogen 29 H Creatinine 1.21 Glucose Level 101 Calcium Level 8.7 Magnesium Level 1.9 Medications Medications Current Medications Lisinopril (Zestril) 5 mg DAILY PO Last administered on 11/17/16t 09:24; Admin Dose 5 MG; Start 11/14/16 at 14:00 Ondansetron HCl (Zofran Inj) 4 mg Q6H PRN IV NAUSEA AND/OR VOMITING; Start at 15:00 Acetaminophen (Tylenol Tab) 650 mg Q6H PRN PO PAIN LEVEL 1-3 OR FEVER; Start at 15:00 Acetaminophen/ Hydrocodone Bitart ([place] (5/325)) 1 tab Q6H PRN PO PAIN LEVEL 4 -6; Start 11/14/16 at 15:00 Enoxaparin Sodium (Lovenox) 40 mg DAILY SC Last administered on 11/17/16 09:27 ; Admin Dose 40 MG; Start 11/15/16 at 09:00 Thiamine HCl (Vitamin B1) 100 mg DAILY PO Last administered on 11/17/16 09:23 ; Admin Dose 100 MG; Start 11/15/16 at 09:00 Nicotine (Nicoderm 14 Mg/ 24hr) 1 patch DAILY TRANSDERM Last administered on 09:25; Admin Dose 1 PATCH; Start 11/14/16 at 16:30 Clonidine (Catapres) 0.1 mg Q4H PRN GTB HTN; Start 11/14/16 at 16:00 Chlordiazepoxide (Librium) 50 mg TID PO Last administered on 11/16/16 22:16; Admin Dose 50 MG; Start 11/16/16 at 21:00 Lorazepam (Ativan) 1 mg Q1HWA PRN IV Anxiety; Start 11/16/16 at 14:00 Carvedilol (Coreg) 6.25 mg BID PO Last administered on 11/17/16 09:24; Admin Dose 6.25 MG; Start 11/16/16 at 21:00 SHAHBAZ RAMACHANDRAN MD Nov 17, 2016 09:32
[2016-11-17] MEDS: CHLORDIAZEPOXIDE 25 MG CAP PO SCH ×3 (09:50→20:32)
--- NOTE | 2016-11-17 15:57 | PN ---
Date/Time of Note Date/Time of Note DATE: 11/17/16 TIME: 15:53 Assessment/Plan VTE Prophylaxis VTE Prophylaxis Intervention: SCD's Lines/Catheters IV [facility] Type (from [facility] Peripheral IV Urinary Cath still in place: No Assessment/Plan Chief Complaint/Hosp Course Assessment and plan 1. Acute CHF exacerbation. systolic dysfunction Cardiology is following. Troponins negative so far. Follow-up cardiology recommendations. 2. Essential hypertension. Continue antihypertensives and adjust 3. History of alcohol abuse. Suspect underlying alcohol withdrawal. Continue with benzodiazepines as needed. Continue Librium. 4. Cigarette smoking. Patient educated about cessation. Refusing nicotine patch at this time 5. History of substance abuse. Patient educated about illicit drug use cessation. Disposition and plan: no less resp distrss noted. more calm. cont on pulm regimen. await for clinical improvement Discussed plan of care with Dr. De La Garza Problems: Subjective 24 Hr Interval Summary Free Text/Dictation no s/s of distress. slightly somnolent Exam/Review of Systems Vital Signs Vitals Vital Signs Date Time Temp Pulse Resp B/P Pulse Ox O2 Delivery O2 Flow Rate FiO2 11/17/16 15:48 98.2 110 19 117/81 99 11/17/16 08:00 Nasal Cannula 5.0 11/15/16 08:19 21 Intake and Output 11/16/16 11/16/16 11/17/16 15:00 23:00 07:00 Intake Total 300 ml 400 ml 600 ml Output Total 600 ml 350 ml 900 ml Balance -300 ml 50 ml -300 ml Exam Constitutional: alert, oriented Psych: nl mood/affect Head: normocephalic Respiratory: diminished breath sounds (minimally at bases) Cardiovascular: other (regular rate ) Gastrointestinal: non-tender, soft Neurological: PARTS PICKER II-XII intact, nl mental status, nl speech Results Result Diagram: 11/17/1614 11/17/16 0714 Results 24 hrs Laboratory Tests Test 11/17/16 07:14 White Blood Count 12.2 H Red Blood Count 4.73 Hemoglobin 14.6 Hematocrit 47.8 Mean Corpuscular Volume 101.1 H Mean Corpuscular Hemoglobin 30.9 Mean Corpuscular Hemoglobin Concent 30.5 L Red Cell Distribution Width 14.1 Platelet Count 258 Mean Platelet Volume 9.7 Neutrophils % 71.6 Lymphocytes % 17.3 Monocytes % 9.4 Eosinophils % 0.8 Basophils % 0.3 Nucleated Red Blood Cells % 0.0 Neutrophils # 8.7 H Lymphocytes # 2.1 Monocytes # 1.1 H Eosinophils # 0.1 Basophils # 0.0 Nucleated Red Blood Cells # 0.0 Sodium Level 136 Potassium Level 3.6 Chloride Level 99 Carbon Dioxide Level 34 H Anion Gap 7 L Blood Urea Nitrogen 29 H Creatinine 1.21 Glucose Level 101 Calcium Level 8.7 Magnesium Level 1.9 Medications Medications Current Medications Lisinopril (Zestril) 5 mg DAILY PO Last administered on 11/17/16 09:24; Admin Dose 5 MG; Start 11/14/16 at 14:00 Ondansetron HCl (Zofran Inj) 4 mg Q6H PRN IV NAUSEA AND/OR VOMITING; Start at 15:00 Acetaminophen (Tylenol Tab) 650 mg Q6H PRN PO PAIN LEVEL 1-3 OR FEVER; Start at 15:00 Acetaminophen/ Hydrocodone Bitart ([place] (5/325)) 1 tab Q6H PRN PO PAIN LEVEL 4 -6; Start 11/14/16 at 15:00 Enoxaparin Sodium (Lovenox) 40 mg DAILY SC Last administered on 11/17/16 09:27 ; Admin Dose 40 MG; Start 11/15/16 at 09:00 Thiamine HCl (Vitamin B1) 100 mg DAILY PO Last administered on 11/17/16 09:23 ; Admin Dose 100 MG; Start 11/15/16 at 09:00 Nicotine (Nicoderm 14 Mg/ 24hr) 1 patch DAILY TRANSDERM Last administered on 09:25; Admin Dose 1 PATCH; Start 11/14/16 at 16:30 Clonidine (Catapres) 0.1 mg Q4H PRN GTB HTN; Start 11/14/16 at 16:00 Chlordiazepoxide (Librium) 50 mg TID PO Last administered on 11/17/16 13:29; Admin Dose 50 MG; Start 11/16/16 at 21:00 Lorazepam (Ativan) 1 mg Q1HWA PRN IV Anxiety; Start 11/16/16 at 14:00 Carvedilol (Coreg) 6.25 mg BID PO Last administered on 11/17/16 09:24; Admin Dose 6.25 MG; Start 11/16/16 at 21:00 DOMINIQUE MEDINA Nov 17, 2016 15:57
[2016-11-18] VITALS (10 sets, daily range): BP systolic 99–122; BP diastolic 64–88; PULSE 98–111; RESP 16–18
[2016-11-18] MEDS: HYDROCODONE/APAP (5/325) TAB PO PRN ×2 (05:14→15:39)
[2016-11-18] MEDS: FUROSEMIDE 40 MG INJ IV SCH ×2 (06:33→17:42)
[2016-11-18 07:33] LABS: BASOPHILS % 0.3 % (0.0-2.0); EOSINOPHILS # 0.2 10^3/ul (0.0-0.5); EOSINOPHILS % 1.3 % (0.0-7.0); HEMOGLOBIN 14.3 g/dl (14.0-18.0); LYMPHOCYTES # 1.9 10^3/ul (0.8-2.9); MEAN CORPUSCULAR HEMOGLOBIN 31.6 pg (29.0-33.0); MEAN CORPUSCULAR HGB CONC 31.8 g/dl (32.0-37.0); MEAN CORPUSCULAR VOLUME 99.6 fl (82.0-101.0); MEAN PLATELET VOLUME 9.1 fl (7.4-10.4); MONOCYTE # 1.3 10^3/ul (0.3-0.9); MONOCYTES % 10.7 % (0.0-11.0); NEUTROPHIL # 8.5 10^3/ul (1.6-7.5); NEUTROPHILS % 71.3 % (39.0-77.0); PLATELET COUNT 263 10^3/UL (140-415); RED BLOOD COUNT 4.52 10^6/ul (4.70-6.10); RED CELL DISTRIBUTION WIDTH 13.8 % (11.5-14.5); WHITE BLOOD COUNT 11.9 10^3/ul (4.8-10.8)
[2016-11-18 07:52] LABS: CALCIUM 8.9 mg/dl (8.4-10.2); CREATININE 1.39 mg/dl (0.61-1.24); POTASSIUM 3.8 mmol/L (3.5-5.1)
[2016-11-18 09:05] LABS: ADD UMIC NO; UR ASCORBIC ACID NEGATIVE (NEGATIVE); UR BILIRUBIN (Dip) NEGATIVE (NEGATIVE); UR BLOOD (Dip) NEGATIVE (NEGATIVE); UR CLARITY CLEAR (CLEAR); UR COLOR YELLOW (YELLOW); UR GLUCOSE (Dip) NEGATIVE (NEGATIVE); UR KETONES (Dip) NEGATIVE (NEGATIVE); UR LEUKOCYTE ESTERASE (Dip) NEGATIVE Leu/ul (NEGATIVE); UR NITRITE (Dip) NEGATIVE (NEGATIVE); UR SPECIFIC GRAVITY (Dip) 1.006 (1.003-1.030); UR TOTAL PROTEIN (Dip) NEGATIVE (NEGATIVE); UR UROBILINOGEN (Dip) 1+ mg/dL (NEGATIVE)
[2016-11-18] MEDS: THIAMINE 100 MG TAB PO SCH (09:11)
[2016-11-18] MEDS: LISINOPRIL 5 MG TAB PO SCH (09:11)
[2016-11-18] MEDS: NICOTINE (14 MG/24 HR) PATCH TRANSDERM SCH (09:11)
--- NOTE | 2016-11-18 09:16 | CONS ---
Date/Time of Note Date/Time of Note DATE: 11/18/16 TIME: 09:14 Assessment/Plan Assessment/Plan Additional Assessment/Plan 1.CHF-EF 20-25% by echo read this admission and thus systolic acute on chronic- Neg trop x 3 - HR better overall - con't DT prophylaxis. 2.HTN - well rx 3.ETOH/substance abuse abuse - con't DT prophylaxis 4.LE edema - better, satble urine output BETTER - keep euvolemic. 5.Pos Tob - d/c advised Consultation Date/Type/Reason Admit Date/Time Nov 14, 2016 at 14:45 Type of Consultation: cardiology Referring Provider: DOMINIQUE MEDINA 24 HR Interval Summary Free Text/Dictation NO acute events - better overall, still tachy, but decreased HR - will monitor now. ROS: No fever, no chills, no nausea, no vomiting, no diarrhea/constipation No recent weight changes No chest pain, no PND, no orthopnea No dizziness, blurred vision No thirst, no heat or cold intolerance Exam/Review of Systems Vital Signs Vitals Vital Signs Date Time Temp Pulse Resp B/P Pulse Ox O2 Delivery O2 Flow Rate FiO2 11/18/16 08:29 101 11/18/16 07:35 98.0 16 120/66 97 11/18/16 06:50 3.0 11/17/16 19:52 Nasal Cannula 11/15/16 08:19 21 Intake and Output 11/17/16 11/17/16 11/18/16 15:00 23:00 07:00 Intake Total 420 ml 200 ml Output Total 450 ml 1150 ml 2800 ml Balance -30 ml -1150 ml -2600 ml Exam General: WN/WD/NAD, AOx 2-3 HEENT: Unicetric/atraumatic/EOMI ( follow commands) NECK: JVD elevated, no thyromegaly Lymph: no lymphadenopathy HEART: regular with no S3, II/ systolic murmur at apex, PMI L LUNGS: Coarse sounds ABD: soft, NT, ND, +BS : Intact Neuro: non focal SKIN: chronic changes EXT: trace edema Results Result Diagram: 11/18/16 0654 11/18/16 0654 Results 24 hrs Laboratory Tests Test 11/17/16 19:00 11/18/16 06:54 Urine Color YELLOW Urine Clarity CLEAR Urine pH 7.0 Urine Specific [place] 1.006 Urine Ketones NEGATIVE Urine Nitrite NEGATIVE Urine Bilirubin NEGATIVE Urine Urobilinogen 1+ H Urine Leukocyte Esterase NEGATIVE Urine Hemoglobin NEGATIVE Urine Glucose NEGATIVE Urine Total Protein NEGATIVE White Blood Count 11.9 H Red Blood Count 4.52 L Hemoglobin 14.3 Hematocrit 45.0 Mean Corpuscular Volume 99.6 Mean Corpuscular Hemoglobin 31.6 Mean Corpuscular Hemoglobin Concent 31.8 L Red Cell Distribution Width 13.8 Platelet Count 263 Mean Platelet Volume 9.1 Neutrophils % 71.3 Lymphocytes % 16.0 Monocytes % 10.7 Eosinophils % 1.3 Basophils % 0.3 Nucleated Red Blood Cells % 0.0 Neutrophils # 8.5 H Lymphocytes # 1.9 Monocytes # 1.3 H Eosinophils # 0.2 Basophils # 0.0 Nucleated Red Blood Cells # 0.0 Sodium Level 141 Potassium Level 3.8 Chloride Level 102 Carbon Dioxide Level 33 H Anion Gap 10 Blood Urea Nitrogen 31 H Creatinine 1.39 H Glucose Level 104 Calcium Level 8.9 Medications Medications Current Medications Lisinopril (Zestril) 5 mg DAILY PO Last administered on 11/17/16 09:24; Admin Dose 5 MG; Start 11/14/16 at 14:00 Ondansetron HCl (Zofran Inj) 4 mg Q6H PRN IV NAUSEA AND/OR VOMITING; Start at 15:00 Acetaminophen (Tylenol Tab) 650 mg Q6H PRN PO PAIN LEVEL 1-3 OR FEVER; Start at 15:00 Acetaminophen/ Hydrocodone Bitart ([place] (5/325)) 1 tab Q6H PRN PO PAIN LEVEL 4 -6 Last administered on 11/18/16 05:14; Admin Dose 1 TAB; Start 11/14/16 at 15: 00 Enoxaparin Sodium (Lovenox) 40 mg DAILY SC Last administered on 11/17/16 09:27 ; Admin Dose 40 MG; Start 11/15/16 at 09:00 Thiamine HCl (Vitamin B1) 100 mg DAILY PO Last administered on 11/17/16 09:23 ; Admin Dose 100 MG; Start 11/15/16 at 09:00 Nicotine (Nicoderm 14 Mg/ 24hr) 1 patch DAILY TRANSDERM Last administered on 09:25; Admin Dose 1 PATCH; Start 11/14/16 at 16:30 Clonidine (Catapres) 0.1 mg Q4H PRN GTB HTN; Start 11/14/16 at 16:00 Chlordiazepoxide (Librium) 50 mg TID PO Last administered on 11/17/16 20:32; Admin Dose 50 MG; Start 11/16/16 at 21:00 Lorazepam (Ativan) 1 mg Q1HWA PRN IV Anxiety; Start 11/16/16 at 14:00 Carvedilol (Coreg) 6.25 mg BID PO Last administered on 11/17/16 20:32; Admin Dose 6.25 MG; Start 11/16/16 at 21:00 SHAHBAZ RAMACHANDRAN MD Nov 18, 2016 09:16
[2016-11-18] MEDS: CHLORDIAZEPOXIDE 25 MG CAP PO SCH (09:18)
[2016-11-18] MEDS: ENOXAPARIN 40 MG/0.4 ML SYG SC SCH (09:22)
[2016-11-18] MEDS ORDERED: POTASSIUM CHLORIDE (SR) 10 MEQ TAB PO ONE (15:00)
--- NOTE | 2016-11-18 15:23 | CONS ---
DATE OF ADMISSION: 11/14/2016 DATE OF CONSULTATION: 11/18/2016 REASON FOR CONSULTATION: Nonoliguric acute kidney injury. HISTORY OF PRESENT ILLNESS: The patient is a pleasant 51-year- old gentleman with past medical history of alcoholism and hypertension, who present to [facility] for evaluation of shortness of breath. Upon presentation, he was found to be in acute decompensated heart failure. An echocardiogram at the time of presentation revealed an EF of 20 to 25 percent. Upon presentation, he had a creatinine of 0.92 mg/dL, but over the ensuing days, it has peaked to 1.39 mg/dL, prompting a renal consultation. REVIEW OF SYSTEMS: He currently denies any shortness of breath, nausea, vomiting, diarrhea or dysuria. ALLERGIES: HE HAS NO KNOWN DRUG ALLERGIES. PAST MEDICAL HISTORY: 1. Alcoholism. 2. Hypertension. MEDICATION: His outpatient medications include: 1. Clonidine 0.3 mg p.o. b.i.d. p.r.n. 2. Cardizem 300 mg daily. FAMILY HISTORY: Noncontributory at this time. SOCIAL HISTORY: The patient is an alcoholic and apparently also has a history of polysubstance abuse as well. PHYSICAL EXAMINATION: VITAL SIGNS: Temperature 97.7, pulse 67, respirations 16, blood pressure 108/64, saturating 94% on 5 L. HEENT: Atraumatic, normocephalic. CARDIAC: S1, S2, regular. LUNGS: Decreased breath sounds. ABDOMEN: Soft, benign, nontender. EXTREMITIES: Failed to reveal any edema. NEUROLOGIC: The patient is awake, alert and oriented x3. IMPRESSION AND PLAN: 1. Acute kidney injury: I suspect that this gentleman's acute decline in GFR is one that is due to much needed diuresis in the setting of cardiorenal dysfunction. His urinalysis is completely bland, making vasculitis unlikely. I think it's okay to let his creatinine rise a bit in favor of keeping him euvolemic and I agree that ongoing diuretics is doing so. I will hold his Lisinopril for 1 to 2 days until his creatinine settles out as it can lead to further glomerular hypoperfusion in the setting of acute kidney injury. As I stated above, irrespective of his rising creatinine, I would forge ahead with diuretics as doing so, as I do not think he is euvolemic at this time and it is too soon to transition to oral regimen. 2. Metabolic alkalosis: Keep his potassium greater than 4 as hypokalemia will exacerbate alkalosis. His alkalemia is induced by his diuretics. No need for Diamox at this juncture, but should his bicarb continue to creep upwards, then I will obtain another blood gas for further delineation of his acid based status. As stated above, keep his potassium greater than 4. 3. Alcoholism. Continue DT prophylaxis. 4. Hypertension. As stated above, I will hold his HEATHER inhibitor for 1 or 2 more days until we see where his GFR settles out and to avoid further glomerular hypoperfusion. Thank you for allowing us to participate in his care. Dictated By: Marry Theodore MD /allison/jenny /Document#: [id number]
--- NOTE | 2016-11-18 15:30 | PN ---
Date/Time of Note Date/Time of Note DATE: 11/18/16 TIME: 15:27 Assessment/Plan VTE Prophylaxis VTE Prophylaxis Intervention: SCD's Lines/Catheters [facility] Saline Lock Urinary Cath still in place: No Assessment/Plan Chief Complaint/Hosp Course Assessment and plan 1. Acute CHF exacerbation. systolic dysfunction Cardiology is following. Troponins negative so far. Follow-up cardiology recommendations. 2. Essential hypertension. Continue antihypertensives and adjust 3. History of alcohol abuse. Suspect underlying alcohol withdrawal. Continue with benzodiazepines as needed. Continue Librium. 4. Cigarette smoking. Patient educated about cessation. Refusing nicotine patch at this time 5. History of substance abuse. Patient educated about illicit drug use cessation. 6. [employer]. 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 check cxr for worse dyspnea. will get dock loader pending clinical course Discussed plan of care with Dr. De La Garza Problems: Subjective 24 Hr Interval Summary Free Text/Dictation Noted with increased shortness of breath this time. Exam/Review of Systems Vital Signs Vitals Vital Signs Date Time Temp Pulse Resp B/P Pulse Ox O2 Delivery O2 Flow Rate FiO2 11/18/16 15:13 97.7 111 18 122/88 100 11/18/16 08:53 Nasal Cannula 5.0 11/15/16 08:19 21 Intake and Output 11/17/16 11/17/16 11/18/16 15:00 23:00 07:00 Intake Total 420 ml 200 ml Output Total 450 ml 1150 ml 2800 ml Balance -30 ml -1150 ml -2600 ml Exam Constitutional: alert, oriented Psych: nl mood/affect Head: normocephalic Respiratory: diminished breath sounds with congestion Cardiovascular: other (regular rate ) Gastrointestinal: non-tender, soft Neurological: FOUNTAIN CLERK II-XII intact, nl mental status, nl speech Results Result Diagram: 11/18/16 0654 11/18/16 0654 Results 24 hrs Laboratory Tests Test 11/17/16 19:00 11/18/16 06:54 Urine Color YELLOW Urine Clarity CLEAR Urine pH 7.0 Urine Specific [place] 1.006 Urine Ketones NEGATIVE Urine Nitrite NEGATIVE Urine Bilirubin NEGATIVE Urine Urobilinogen 1+ H Urine Leukocyte Esterase NEGATIVE Urine Hemoglobin NEGATIVE Urine Glucose NEGATIVE Urine Total Protein NEGATIVE White Blood Count 11.9 H Red Blood Count 4.52 L Hemoglobin 14.3 Hematocrit 45.0 Mean Corpuscular Volume 99.6 Mean Corpuscular Hemoglobin 31.6 Mean Corpuscular Hemoglobin Concent 31.8 L Red Cell Distribution Width 13.8 Platelet Count 263 Mean Platelet Volume 9.1 Neutrophils % 71.3 Lymphocytes % 16.0 Monocytes % 10.7 Eosinophils % 1.3 Basophils % 0.3 Nucleated Red Blood Cells % 0.0 Neutrophils # 8.5 H Lymphocytes # 1.9 Monocytes # 1.3 H Eosinophils # 0.2 Basophils # 0.0 Nucleated Red Blood Cells # 0.0 Sodium Level 141 Potassium Level 3.8 Chloride Level 102 Carbon Dioxide Level 33 H Anion Gap 10 Blood Urea Nitrogen 31 H Creatinine 1.39 H Glucose Level 104 Calcium Level 8.9 Medications Medications Current Medications Ondansetron HCl (Zofran Inj) 4 mg Q6H PRN IV NAUSEA AND/OR VOMITING; Start at 15:00 Acetaminophen (Tylenol Tab) 650 mg Q6H PRN PO PAIN LEVEL 1-3 OR FEVER; Start at 15:00 Acetaminophen/ Hydrocodone Bitart ([place] (5/325)) 1 tab Q6H PRN PO PAIN LEVEL 4 -6 Last administered on 11/18/16 05:14; Admin Dose 1 TAB; Start 11/14/16 at 15: 00 Thiamine HCl (Vitamin B1) 100 mg DAILY PO Last administered on 11/18/16 09:11 ; Admin Dose 100 MG; Start 11/15/16 at 09:00 Nicotine (Nicoderm 14 Mg/ 24hr) 1 patch DAILY TRANSDERM Last administered on 09:11; Admin Dose 1 PATCH; Start 11/14/16 at 16:30 Clonidine (Catapres) 0.1 mg Q4H PRN GTB HTN; Start 11/14/16 at 16:00 Lorazepam (Ativan) 1 mg Q1HWA PRN IV Anxiety; Start 11/16/16 at 14:00 Carvedilol (Coreg) 6.25 mg BID PO Last administered on 11/18/16 09:11; Admin Dose 6.25 MG; Start 11/16/16 at 21:00 Chlordiazepoxide (Librium) 25 mg DAILY PO ; Start 11/19/16 at 09:00 Lisinopril (Zestril) 5 mg DAILY PO ; Start 11/20/16 at 14:00 DOMINIQUE MEDINA Nov 18, 2016 15:30
[2016-11-18] MEDS ORDERED: NITROGLYCERIN (SL) 0.4 MG TAB ONE (15:41)
[2016-11-18] MEDS ORDERED: NITROGLYCERIN (SL) 0.4 MG TAB SL PRN (16:00)
--- NOTE | 2016-11-18 19:27 | RADRPT ---
PROCEDURE: XR Chest. CLINICAL INDICATION: Dyspnea TECHNIQUE: Single AP portable chest. COMPARISON: 11/16/2016 Chest x-ray FINDINGS: Cardiomegaly decreased compared to prior study. Small to moderate bilateral pleural effusions with m ild vascular congestion. Superimposed pneumonia cannot be excluded. No pneumothorax. The osseous s tructures and soft tissues are unremarkable. IMPRESSION: 1. Cardiomegaly, vascular congestion and bilateral small to moderate pleural effusions compatible wi th CHF. Superimposed pneumonia cannot be excluded . RPTAT:AAJJ Kalen Jade Physician Date Time Electronically viewed and signed by Kalen Jade Physician on 11/18/2016 19:26 KEENAN/
[2016-11-19] VITALS (10 sets, daily range): BP systolic 98–117; BP diastolic 60–78; PULSE 99–118; RESP 16–21
[2016-11-19] MEDS: FUROSEMIDE 40 MG INJ IV SCH (05:42)
[2016-11-19 06:14] LABS: ABNORMAL IP MESSAGE 1; BASOPHILS % 0.2 % (0.0-2.0); EOSINOPHILS # 0.2 10^3/ul (0.0-0.5); EOSINOPHILS % 1.8 % (0.0-7.0); HEMATOCRIT 46.1 % (42.0-52.0); HEMOGLOBIN 14.5 g/dl (14.0-18.0); LYMPHOCYTES # 1.8 10^3/ul (0.8-2.9); LYMPHOCYTES % 14.5 % (15.0-51.0); MEAN CORPUSCULAR HEMOGLOBIN 31.9 pg (29.0-33.0); MEAN CORPUSCULAR HGB CONC 31.5 g/dl (32.0-37.0); MEAN CORPUSCULAR VOLUME 101.5 fl (82.0-101.0); MEAN PLATELET VOLUME 9.1 fl (7.4-10.4); MONOCYTE # 1.6 10^3/ul (0.3-0.9); NEUTROPHIL # 8.7 10^3/ul (1.6-7.5); PLATELET COUNT 287 10^3/UL (140-415); POSITIVE DIFF @See below; RED BLOOD COUNT 4.54 10^6/ul (4.70-6.10); RED CELL DISTRIBUTION WIDTH 13.6 % (11.5-14.5); WHITE BLOOD COUNT 12.5 10^3/ul (4.8-10.8)
[2016-11-19 06:47] LABS: CALCIUM 9.1 mg/dl (8.4-10.2); CREATININE 1.03 mg/dl (0.61-1.24); POTASSIUM 4.2 mmol/L (3.5-5.1)
[2016-11-19 06:54] LABS: MAGNESIUM 1.8 mg/dl (1.7-2.5); PHOSPHORUS 4.5 mg/dl (2.5-4.9)
[2016-11-19] MEDS ORDERED: CHLORDIAZEPOXIDE 25 MG CAP PO SCH (09:00)
--- NOTE | 2016-11-19 10:24 | CONS ---
Date/Time of Note Date/Time of Note DATE: 11/19/16 TIME: 10:23 Assessment/Plan Assessment/Plan Additional Assessment/Plan 1.CHF-EF 20-25% by echo read this admission and thus systolic acute on chronic- Neg trop x 3 - HR better overall - con't DT prophylaxis. - stable, overall improved. 2.HTN - well rx - better now 3.ETOH/substance abuse abuse - con't DT prophylaxis 4.LE edema - better, satble urine output BETTER - keep euvolemic. IMPROVED. 5.Pos Tob - d/c advised Consultation Date/Type/Reason Admit Date/Time Nov 14, 2016 at 14:45 Type of Consultation: cardiology Referring Provider: DOMINIQUE MEDINA 24 HR Interval Summary Free Text/Dictation NO acute events - stable overall - no VT/Vf - no sign ectopy on tele ROS: No fever, no chills, no nausea, no vomiting, no diarrhea/constipation No recent weight changes No chest pain, no PND, no orthopnea No dizziness, blurred vision No thirst, no heat or cold intolerance Exam/Review of Systems Vital Signs Vitals Vital Signs Date Time Temp Pulse Resp B/P Pulse Ox O2 Delivery O2 Flow Rate FiO2 11/19/16 08:05 98.4 104 19 104/67 97 11/19/16 06:53 2.0 11/19/16 00:07 Nasal Cannula 11/15/16 08:19 21 Intake and Output 11/18/16 11/18/16 11/19/16 14:59 22:59 06:59 Intake Total 1150 ml 800 ml Output Total 1350 ml 950 ml Balance -200 ml -150 ml Exam General: WN/WD/NAD, AOx 2-3 HEENT: Unicetric/atraumatic/EOMI (follows commands) NECK: JVD elevated, no thyromegaly Lymph: no lymphadenopathy HEART: regular with no S3, II/ systolic murmur at apex LUNGS: Coarse sounds ABD: soft, NT, ND, +BS : Intact Neuro: non focal SKIN: chronic changes EXT: trace edema Results Result Diagram: 11/19/16 0557 11/19/16 0557 Results 24 hrs Laboratory Tests Test 11/18/16 16:48 11/19/16 05:57 Troponin I 0.036 White Blood Count 12.5 H Red Blood Count 4.54 L Hemoglobin 14.5 Hematocrit 46.1 Mean Corpuscular Volume 101.5 H Mean Corpuscular Hemoglobin 31.9 Mean Corpuscular Hemoglobin Concent 31.5 L Red Cell Distribution Width 13.6 Platelet Count 287 Mean Platelet Volume 9.1 Neutrophils % 70.0 Lymphocytes % 14.5 L Monocytes % 13.0 H Eosinophils % 1.8 Basophils % 0.2 Nucleated Red Blood Cells % 0.0 Neutrophils # 8.7 H Lymphocytes # 1.8 Monocytes # 1.6 H Eosinophils # 0.2 Basophils # 0.0 Nucleated Red Blood Cells # 0.0 Sodium Level 139 Potassium Level 4.2 Chloride Level 97 Carbon Dioxide Level 37 H Anion Gap 9 Blood Urea Nitrogen 23 H Creatinine 1.03 Glucose Level 89 Calcium Level 9.1 Phosphorus Level 4.5 Magnesium Level 1.8 Medications Medications Current Medications Ondansetron HCl (Zofran Inj) 4 mg Q6H PRN IV NAUSEA AND/OR VOMITING; Start at 15:00 Acetaminophen (Tylenol Tab) 650 mg Q6H PRN PO PAIN LEVEL 1-3 OR FEVER; Start at 15:00 Acetaminophen/ Hydrocodone Bitart ([place] (5/325)) 1 tab Q6H PRN PO PAIN LEVEL 4 -6 Last administered on 11/18/16 15:39; Admin Dose 1 TAB; Start 11/14/16 at 15: 00 Thiamine HCl (Vitamin B1) 100 mg DAILY PO Last administered on 11/18/16 09:11 ; Admin Dose 100 MG; Start 11/15/16 at 09:00 Nicotine (Nicoderm 14 Mg/ 24hr) 1 patch DAILY TRANSDERM Last administered on 09:11; Admin Dose 1 PATCH; Start 11/14/16 at 16:30 Clonidine (Catapres) 0.1 mg Q4H PRN GTB HTN; Start 11/14/16 at 16:00 Lorazepam (Ativan) 1 mg Q1HWA PRN IV Anxiety; Start 11/16/16 at 14:00 Carvedilol (Coreg) 6.25 mg BID PO Last administered on 11/18/16 21:12; Admin Dose 6.25 MG; Start 11/16/16 at 21:00 Lisinopril (Zestril) 5 mg DAILY PO ; Start 11/20/16 at 14:00 Nitroglycerin (Nitroglycerin (Sl Tab) 0.4 Mg) 1 tab Q5M PRN SL CHEST PAIN Last administered on 11/18/16t 15:47; Admin Dose 1 TAB; Start 11/18/16 at 16:00 Salmeterol Xinafoate/ Fluticasone 1 inh 1 inh BID INH ; Start 11/19/16 at 10:00 Levofloxacin/ Dextrose (Levaquin 500mg/ D5W 100 ml (Pmx)) 100 ml @ 100 mls/hr Q24H IVPB ; Start 11/19/16 at 10:00 SHAHBAZ RAMACHANDRAN MD Nov 19, 2016 10:24
[2016-11-19] MEDS: THIAMINE 100 MG TAB PO SCH (11:36)
[2016-11-19] MEDS: NICOTINE (14 MG/24 HR) PATCH TRANSDERM SCH (11:36)
[2016-11-19] MEDS: SALMETEROL/FLUTICASONE 250/50 INHA INH SCH ×2 (12:13→20:49)
[2016-11-19] MEDS: LEVOFLOXACIN 500MG/D5W (PMX) 100 ML IVPB SCH (12:16)
--- NOTE | 2016-11-19 13:50 | PN ---
Date/Time of Note Date/Time of Note DATE: 11/19/16 TIME: 13:47 Assessment/Plan VTE Prophylaxis VTE Prophylaxis Intervention: ambulation, anti-embolic stocking Lines/Catheters IV Catheter Type (from Nrsg): Saline Lock Urinary Cath still in place: No Assessment/Plan Assessment/Plan 1. Acute kidney injury: pre renal , due to much needed diuresis in the setting of cardiorenal dysfunction. His urinalysis is completely bland, making vasculitis unlikely. will dc iv lasix , resume oral by am 2. Metabolic alkalosis: Keep his potassium greater than 4 as hypokalemia will exacerbate alkalosis. His alkalemia is induced by his diuretics. No need for Diamox at this juncture, re check ABG 3. Alcoholism. Continue DT prophylaxis. 4. Hypertension. ok to resume AC E Subjective 24 Hr Interval Summary Constitutional: No chills, No diaphoresis, No disoriented, No febrile, No improved, No no complaints, No other, No poor po, No requiring IVF, No requiring O2 Eyes: No discharge, No no complaints, No other, No pain, No redness, No visual change Cardiovascular: No chest pain, No edema, No lightheadedness, No no complaints, No orthopenea, No other, No palpitations, No paroxysmal nocturnal dyspnea Genitourinary: No bleeding, No discharge, No dysuria, No flank pain, No hematuria, No no complaints, No other Exam/Review of Systems Vital Signs Vitals Vital Signs Date Time Temp Pulse Resp B/P Pulse Ox O2 Delivery O2 Flow Rate FiO2 11/19/16 12:00 99 11/19/16 11:11 98.2 19 109/74 95 11/19/16 08:00 Nasal Cannula 3.0 11/15/16 08:19 21 Intake and Output 11/18/16 11/18/16 11/19/16 15:00 23:00 07:00 Intake Total 1150 ml 800 ml Output Total 1350 ml 950 ml Balance -200 ml -150 ml Exam Constitutional: alert, well developed Psych: no complaints Eyes: EOMI, nl conjunctiva Neck: non-tender, supple Cardiovascular: nl pulses, regular rate and rhythm Gastrointestinal: nl liver, spleen, non-tender Musculoskeletal: nl extremities to inspection Skin: nl turgor Results Result Diagram: 11/19/16 0557 11/19/16 0557 Results 24 hrs Laboratory Tests Test 11/18/16 16:48 11/19/16 05:57 Troponin I 0.036 White Blood Count 12.5 H Red Blood Count 4.54 L Hemoglobin 14.5 Hematocrit 46.1 Mean Corpuscular Volume 101.5 H Mean Corpuscular Hemoglobin 31.9 Mean Corpuscular Hemoglobin Concent 31.5 L Red Cell Distribution Width 13.6 Platelet Count 287 Mean Platelet Volume 9.1 Neutrophils % 70.0 Lymphocytes % 14.5 L Monocytes % 13.0 H Eosinophils % 1.8 Basophils % 0.2 Nucleated Red Blood Cells % 0.0 Neutrophils # 8.7 H Lymphocytes # 1.8 Monocytes # 1.6 H Eosinophils # 0.2 Basophils # 0.0 Nucleated Red Blood Cells # 0.0 Sodium Level 139 Potassium Level 4.2 Chloride Level 97 Carbon Dioxide Level 37 H Anion Gap 9 Blood Urea Nitrogen 23 H Creatinine 1.03 Glucose Level 89 Calcium Level 9.1 Phosphorus Level 4.5 Magnesium Level 1.8 Medications Medications Current Medications Ondansetron HCl (Zofran Inj) 4 mg Q6H PRN IV NAUSEA AND/OR VOMITING; Start at 15:00 Acetaminophen (Tylenol Tab) 650 mg Q6H PRN PO PAIN LEVEL 1-3 OR FEVER; Start at 15:00 Acetaminophen/ Hydrocodone Bitart ([place] (5/325)) 1 tab Q6H PRN PO PAIN LEVEL 4 -6 Last administered on 11/18/16 15:39; Admin Dose 1 TAB; Start 11/14/16 at 15: 00 Thiamine HCl (Vitamin B1) 100 mg DAILY PO Last administered on 11/19/16 11:36 ; Admin Dose 100 MG; Start 11/15/16 at 09:00 Nicotine (Nicoderm 14 Mg/ 24hr) 1 patch DAILY TRANSDERM Last administered on 11:36; Admin Dose 1 PATCH; Start 11/14/16 at 16:30 Clonidine (Catapres) 0.1 mg Q4H PRN GTB HTN; Start 11/14/16 at 16:00 Lorazepam (Ativan) 1 mg Q1HWA PRN IV Anxiety; Start 11/16/16 at 14:00 Carvedilol (Coreg) 6.25 mg BID PO Last administered on 11/19/16 11:35; Admin Dose 6.25 MG; Start 11/16/16 at 21:00 Lisinopril (Zestril) 5 mg DAILY PO ; Start 11/20/16 at 14:00 Nitroglycerin (Nitroglycerin (Sl Tab) 0.4 Mg) 1 tab Q5M PRN SL CHEST PAIN Last administered on 11/18/16 15:47; Admin Dose 1 TAB; Start 11/18/16 at 16:00 Salmeterol Xinafoate/ Fluticasone 1 inh 1 inh BID INH Last administered on 11/19 12:13; Admin Dose 1 INH; Start 11/19/16 at 10:00 Levofloxacin/ Dextrose (Levaquin 500mg/ D5W 100 ml (Pmx)) 100 ml @ 100 mls/hr Q24H IVPB Last administered on 11/19/16 12:16; Admin Dose 100 MLS/HR; Start at 10:00 Furosemide (Lasix) 40 mg DAILY PO ; Start 11/20/16 at 09:00; Status CHANTELLE ANN Nov 19, 2016 13:50
--- NOTE | 2016-11-19 14:19 | PN ---
Date/Time of Note Date/Time of Note DATE: 11/19/16 TIME: 14:14 Assessment/Plan VTE Prophylaxis VTE Prophylaxis Intervention: SCD's Lines/Catheters IV [facility]ter Type (from [facility] Saline Lock Urinary Cath still in place: No Assessment/Plan Chief Complaint/Hosp Course Assessment and plan 1. Acute CHF exacerbation. systolic dysfunction Cardiology is following. Troponins negative so far. Follow-up cardiology recommendations. continue diuretic 2. Essential hypertension. Continue antihypertensives and adjust 3. History of alcohol abuse. Suspect underlying alcohol withdrawal. Continue with benzodiazepines as needed. Continue Librium. 4. Cigarette smoking. Patient educated about cessation. on nicotine patch now 5. History of substance abuse. Patient educated about illicit drug use cessation. 6. 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 suspect pna. started on abx Disposition and plan: continue abx and diuretic. follow up cxr in AM. continue inpatient monitoring. PT ordered Discussed plan of care with Dr. De La Garza Problems: Subjective 24 Hr Interval Summary Free Text/Dictation still with some shortness of breath, slightly lethargic Exam/Review of Systems Vital Signs Vitals Vital Signs Date Time Temp Pulse Resp B/P Pulse Ox O2 Delivery O2 Flow Rate FiO2 11/19/16 12:00 99 11/19/16 11:11 98.2 19 109/74 95 11/19/16 08:00 Nasal Cannula 3.0 11/15/16 08:19 21 Intake and Output 11/18/16 11/18/16 11/19/16 15:00 23:00 07:00 Intake Total 1150 ml 800 ml Output Total 1350 ml 950 ml Balance -200 ml -150 ml Exam Constitutional: alert, oriented Psych: nl mood/affect Head: normocephalic Respiratory: diminished breath sounds with congestion Cardiovascular: other (regular rate ) Gastrointestinal: non-tender, soft 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, nl mental status, nl speech Results Result Diagram: 11/19/16 0557 11/19/16 0557 Results 24 hrs Laboratory Tests Test 11/18/16 16:48 11/19/16 05:57 Troponin I 0.036 White Blood Count 12.5 H Red Blood Count 4.54 L Hemoglobin 14.5 Hematocrit 46.1 Mean Corpuscular Volume 101.5 H Mean Corpuscular Hemoglobin 31.9 Mean Corpuscular Hemoglobin Concent 31.5 L Red Cell Distribution Width 13.6 Platelet Count 287 Mean Platelet Volume 9.1 Neutrophils % 70.0 Lymphocytes % 14.5 L Monocytes % 13.0 H Eosinophils % 1.8 Basophils % 0.2 Nucleated Red Blood Cells % 0.0 Neutrophils # 8.7 H Lymphocytes # 1.8 Monocytes # 1.6 H Eosinophils # 0.2 Basophils # 0.0 Nucleated Red Blood Cells # 0.0 Sodium Level 139 Potassium Level 4.2 Chloride Level 97 Carbon Dioxide Level 37 H Anion Gap 9 Blood Urea Nitrogen 23 H Creatinine 1.03 Glucose Level 89 Calcium Level 9.1 Phosphorus Level 4.5 Magnesium Level 1.8 Medications Medications Current Medications Ondansetron HCl (Zofran Inj) 4 mg Q6H PRN IV NAUSEA AND/OR VOMITING; Start at 15:00 Acetaminophen (Tylenol Tab) 650 mg Q6H PRN PO PAIN LEVEL 1-3 OR FEVER; Start at 15:00 Acetaminophen/ Hydrocodone Bitart ([place] (5/325)) 1 tab Q6H PRN PO PAIN LEVEL 4 -6 Last administered on 11/18/16 15:39; Admin Dose 1 TAB; Start 11/14/16 at 15: 00 Thiamine HCl (Vitamin B1) 100 mg DAILY PO Last administered on 11/19/16 11:36 ; Admin Dose 100 MG; Start 11/15/16 at 09:00 Nicotine (Nicoderm 14 Mg/ 24hr) 1 patch DAILY TRANSDERM Last administered on 11:36; Admin Dose 1 PATCH; Start 11/14/16 at 16:30 Clonidine (Catapres) 0.1 mg Q4H PRN GTB HTN; Start 11/14/16 at 16:00 Lorazepam (Ativan) 1 mg Q1HWA PRN IV Anxiety; Start 11/16/16 at 14:00 Carvedilol (Coreg) 6.25 mg BID PO Last administered on 11/19/16 11:35; Admin Dose 6.25 MG; Start 11/16/16 at 21:00 Lisinopril (Zestril) 5 mg DAILY PO ; Start 11/20/16 at 14:00 Nitroglycerin (Nitroglycerin (Sl Tab) 0.4 Mg) 1 tab Q5M PRN SL CHEST PAIN Last administered on 11/18/16 15:47; Admin Dose 1 TAB; Start 11/18/16 at 16:00 Salmeterol Xinafoate/ Fluticasone 1 inh 1 inh BID INH Last administered on 11/19 12:13; Admin Dose 1 INH; Start 11/19/16 at 10:00 Levofloxacin/ Dextrose (Levaquin 500mg/ D5W 100 ml (Pmx)) 100 ml @ 100 mls/hr Q24H IVPB Last administered on 11/19/16 12:16; Admin Dose 100 MLS/HR; Start at 10:00 Furosemide (Lasix) 40 mg DAILY PO ; Start 11/19/16 at 14:30 DOMINIQUE MEDINA Nov 19, 2016 14:19
[2016-11-19] MEDS ORDERED: FUROSEMIDE 40 MG TAB PO SCH (14:30)
[2016-11-19] MEDS: LEVALBUTEROL (NEB) 0.63 MG/3 ML AMP HHN SCH ×2 (14:53→20:15)
[2016-11-19] MEDS: IPRATROPIUM (NEB) 0.5 MG/2.5 ML AMP HHN SCH ×2 (14:53→20:15)
[2016-11-19] MEDS: HYDROCODONE/APAP (5/325) TAB PO PRN (20:48)
[2016-11-20] VITALS (10 sets, daily range): BP systolic 107–124; BP diastolic 69–93; PULSE 96–114; RESP 16–20
[2016-11-20] MEDS: LORAZEPAM 2 MG INJ IV PRN ×2 (02:40→10:24)
[2016-11-20 06:23] LABS: BASOPHILS % 0.4 % (0.0-2.0); EOSINOPHILS # 0.3 10^3/ul (0.0-0.5); EOSINOPHILS % 2.8 % (0.0-7.0); HEMATOCRIT 42.8 % (42.0-52.0); HEMOGLOBIN 13.3 g/dl (14.0-18.0); LYMPHOCYTES # 2.2 10^3/ul (0.8-2.9); LYMPHOCYTES % 20.5 % (15.0-51.0); MEAN CORPUSCULAR HEMOGLOBIN 31.7 pg (29.0-33.0); MEAN CORPUSCULAR HGB CONC 31.1 g/dl (32.0-37.0); MEAN CORPUSCULAR VOLUME 101.9 fl (82.0-101.0); MEAN PLATELET VOLUME 9.2 fl (7.4-10.4); MONOCYTE # 1.3 10^3/ul (0.3-0.9); MONOCYTES % 11.5 % (0.0-11.0); NEUTROPHILS % 64.2 % (39.0-77.0); PLATELET COUNT 291 10^3/UL (140-415); RED CELL DISTRIBUTION WIDTH 13.7 % (11.5-14.5); WHITE BLOOD COUNT 10.9 10^3/ul (4.8-10.8)
[2016-11-20 06:55] LABS: CALCIUM 8.7 mg/dl (8.4-10.2); CREATININE 1.03 mg/dl (0.61-1.24); PHOSPHORUS 4.3 mg/dl (2.5-4.9); POTASSIUM 3.9 mmol/L (3.5-5.1)
[2016-11-20] MEDS: IPRATROPIUM (NEB) 0.5 MG/2.5 ML AMP HHN SCH ×3 (07:40→20:02)
[2016-11-20] MEDS: LEVALBUTEROL (NEB) 0.63 MG/3 ML AMP HHN SCH ×3 (07:40→20:02)
[2016-11-20] MEDS ORDERED: POTASSIUM CHLORIDE (SR) 20 MEQ TAB PO STA (08:20)
--- NOTE | 2016-11-20 08:30 | PN ---
Date/Time of Note Date/Time of Note DATE: 11/20/16 TIME: 08:22 Assessment/Plan VTE Prophylaxis VTE Prophylaxis Intervention: ambulation Lines/Catheters [facility] Type (from [facility] Saline Lock Urinary Cath still in place: No Assessment/Plan Assessment/Plan 1. FEDERICO: suspect secondary to cardiorenal syndrome and much needed diuresis. UA bland making vasculitis unlikely and renal function turning the corner. Continue to keep net negative fluid balance and continue RAAS blockade. 2. CHF (EF20%): as above, continue diuretics. Patient transitioned to oral diuretic regimen but suspect a regimen of 40 q daily may not be enough to keep him near euvolemic. Will BID dose for now and check daily weights. 3. Alcoholism: on DT px 4. Metabolic alkalosis: diuretics scaled back, keep K > 4, no need for carbonic anhydrase inhibitor. Meds reviewed. Subjective 24 Hr Interval Summary Free Text/Dictation Patient being seen for FEDERICO. Denies sob. No overnight events noted. Remains net negative fluid balance. Constitutional: no complaints Eyes: no complaints ENT: no complaints Respiratory: no complaints Cardiovascular: no complaints Gastrointestinal: no complaints Genitourinary: no complaints Musculoskeletal: no complaints Skin: no complaints Psychological: no complaints Exam/Review of Systems Vital Signs Vitals Vital Signs Date Time Temp Pulse Resp B/P Pulse Ox O2 Delivery O2 Flow Rate FiO2 11/20/16 07:52 98.9 94 20 111/93 100 11/20/16 07:44 3.0 11/20/16 07:43 Nasal Cannula 11/19/16 20:16 97 Intake and Output 11/19/16 11/19/16 11/20/16 15:00 23:00 07:00 Intake Total 200 ml 850 ml 500 ml Balance 200 ml 850 ml 500 ml Results Result Diagram: 11/20/16 0600 11/20/16 0600 Results 24 hrs Laboratory Tests Test 11/20/16 06:00 White Blood Count 10.9 H Red Blood Count 4.20 L Hemoglobin 13.3 L Hematocrit 42.8 Mean Corpuscular Volume 101.9 H Mean Corpuscular Hemoglobin 31.7 Mean Corpuscular Hemoglobin Concent 31.1 L Red Cell Distribution Width 13.7 Platelet Count 291 Mean Platelet Volume 9.2 Neutrophils % 64.2 Lymphocytes % 20.5 Monocytes % 11.5 H Eosinophils % 2.8 Basophils % 0.4 Nucleated Red Blood Cells % 0.0 Neutrophils # 7.0 Lymphocytes # 2.2 Monocytes # 1.3 H Eosinophils # 0.3 Basophils # 0.0 Nucleated Red Blood Cells # 0.0 Sodium Level 139 Potassium Level 3.9 Chloride Level 100 Carbon Dioxide Level 34 H Anion Gap 9 Blood Urea Nitrogen 24 H Creatinine 1.03 Glucose Level 116 Calcium Level 8.7 Phosphorus Level 4.3 Albumin 3.0 L Medications Medications Current Medications Ondansetron HCl (Zofran Inj) 4 mg Q6H PRN IV NAUSEA AND/OR VOMITING; Start at 15:00 Acetaminophen (Tylenol Tab) 650 mg Q6H PRN PO PAIN LEVEL 1-3 OR FEVER; Start at 15:00 Acetaminophen/ Hydrocodone Bitart ([place] (5/325)) 1 tab Q6H PRN PO PAIN LEVEL 4 -6 Last administered on 11/19/16 20:48; Admin Dose 1 TAB; Start 11/14/16 at 15: 00 Thiamine HCl (Vitamin B1) 100 mg DAILY PO Last administered on 11/19/16 11:36 ; Admin Dose 100 MG; Start 11/15/16 at 09:00 Nicotine (Nicoderm 14 Mg/ 24hr) 1 patch DAILY TRANSDERM Last administered on 11:36; Admin Dose 1 PATCH; Start 11/14/16 at 16:30 Clonidine (Catapres) 0.1 mg Q4H PRN GTB HTN; Start 11/14/16 at 16:00 Lorazepam (Ativan) 1 mg Q1HWA PRN IV Anxiety Last administered on 11/20/16 02: 40; Admin Dose 1 MG; Start 11/16/16 at 14:00 Carvedilol (Coreg) 6.25 mg BID PO Last administered on 11/19/16 20:48; Admin Dose 6.25 MG; Start 11/16/16 at 21:00 Lisinopril (Zestril) 5 mg DAILY PO ; Start 11/20/16 at 14:00 Nitroglycerin (Nitroglycerin (Sl Tab) 0.4 Mg) 1 tab Q5M PRN SL CHEST PAIN Last administered on 11/18/16 15:47; Admin Dose 1 TAB; Start 11/18/16 at 16:00 Salmeterol Xinafoate/ Fluticasone 1 inh 1 inh BID INH Last administered on 11/19 20:49; Admin Dose 1 INH; Start 11/19/16 at 10:00 Levofloxacin/ Dextrose (Levaquin 500mg/ D5W 100 ml (Pmx)) 100 ml @ 100 mls/hr Q24H IVPB Last administered on 11/19/16 12:16; Admin Dose 100 MLS/HR; Start at 10:00 Furosemide (Lasix) 40 mg DAILY PO Last administered on 11/19/16 15:29; Admin Dose 40 MG; Start 11/19/16 at 14:30 CAROLYNN FERNANDO MD Nov 20, 2016 08:30
[2016-11-20 10:44] LABS: AADO2 Arterial 55.4 mmHg (7.0-24.0); Allen Test ACCEPTAB; Arterial Base Excess 7.7 mmol/L (-3.0-3); Arterial COHb 0.5 % (0.0-3.0); Arterial Fraction of Oxyhgb 94.8 % (93.0-99.0); Arterial HCO3 33.7 mmol/L (22.0-26.0); Arterial MetHb 0.2 % (0.0-1.5); Arterial Total Hemglobin 15.8 g/dl (12.0-18.0); MODE NASAL CANNULA
[2016-11-20] MEDS: SALMETEROL/FLUTICASONE 250/50 INHA INH SCH ×2 (13:16→21:02)
[2016-11-20] MEDS: NICOTINE (14 MG/24 HR) PATCH TRANSDERM SCH (13:17)
[2016-11-20] MEDS: THIAMINE 100 MG TAB PO SCH (13:17)
[2016-11-20] MEDS: FUROSEMIDE 40 MG TAB PO SCH ×2 (13:18→18:27)
[2016-11-20] MEDS: LEVOFLOXACIN 500MG/D5W (PMX) 100 ML IVPB SCH (13:19)
--- NOTE | 2016-11-20 13:22 | CONS ---
Date/Time of Note Date/Time of Note DATE: 11/20/16 TIME: 13:18 Assessment/Plan Assessment/Plan Chief Complaint/Hosp Course IMP: 1.CHF-EF 20-25% by echo read this admission and thus systolic acute on chronic- Neg trop x 3 2.HTN 3.ETOH/substance abuse abuse 4.LE edema 5.Pos Tob 6. Chest atypical-Negative trop's REcc: -Tele -serial ecg -Continue coreg -Continue zestril -start aldactone -Nicotine patch/smoking cessation -Continue benzo's -[id number] volume status closely Problems: Consultation Date/Type/Reason Admit Date/Time Nov 14, 2016 at 14:45 Initial Consult Date 11/15/2016 Type of Consultation: cardiology Reason for Consultation CHF Referring Provider: DOMINIQUE MEDINA Exam/Review of Systems Vital Signs Vitals Vital Signs Date Time Temp Pulse Resp B/P Pulse Ox O2 Delivery O2 Flow Rate FiO2 11/20/16 12:34 102 11/20/16 11:13 97.6 20 124/83 98 11/20/16 07:44 3.0 11/20/16 07:43 Nasal Cannula 11/19/16 20:16 97 Intake and Output 11/19/16 11/19/16 11/20/16 15:00 23:00 07:00 Intake Total 200 ml 850 ml 500 ml Balance 200 ml 850 ml 500 ml Exam Review of Systems: CONSTITUTIONAL: No fevers, chills. PULMONARY: No sob CARDIOVASCULAR: No chest pain/palpitations GASTROINTESTINAL: No nausea/vomiting. GENITOURINARY: No hematuria/dysuria. MUSCULOSKELETAL: No myagias/arthalgias. PSYCHIATRIC: The patient denies depression. NEUROLOGIC: No weakness Constitutional: alert Psych: no complaints Head: normocephalic ENMT: mucosa pink and moist Neck: jvd, supple Respiratory: diminished breath sounds Gastrointestinal: non-tender, soft Musculoskeletal: muscle tone (normal) Extremities: edema Neurological: other (No focal deficits) Results Result Diagram: 11/20/16 0600 11/20/16 0600 Results 24 hrs Laboratory Tests Test 11/20/16 06:00 11/20/16 08:00 White Blood Count 10.9 H Red Blood Count 4.20 L Hemoglobin 13.3 L Hematocrit 42.8 Mean Corpuscular Volume 101.9 H Mean Corpuscular Hemoglobin 31.7 Mean Corpuscular Hemoglobin Concent 31.1 L Red Cell Distribution Width 13.7 Platelet Count 291 Mean Platelet Volume 9.2 Neutrophils % 64.2 Lymphocytes % 20.5 Monocytes % 11.5 H Eosinophils % 2.8 Basophils % 0.4 Nucleated Red Blood Cells % 0.0 Neutrophils # 7.0 Lymphocytes # 2.2 Monocytes # 1.3 H Eosinophils # 0.3 Basophils # 0.0 Nucleated Red Blood Cells # 0.0 Sodium Level 139 Potassium Level 3.9 Chloride Level 100 Carbon Dioxide Level 34 H Anion Gap 9 Blood Urea Nitrogen 24 H Creatinine 1.03 Glucose Level 116 Calcium Level 8.7 Phosphorus Level 4.3 Albumin 3.0 L Blood Gas Specimen Source Blood arterial Arterial Blood Date Drawn 11/20/2016 10:30:00 AM Arterial Blood pH (Temp corrected) 7.432 Arterial Blood pCO2 (Temp correct) 51.7 H Arterial Blood pO2 (Temp corrected) 76.0 L Arterial Blood HCO3 33.7 H Arterial Blood Base Excess 7.7 H Arterial Blood Oxygen Saturation 95.5 Shyam Test ACCEPTAB Arterial Blood Gas Puncture Site Right Radial Arterial Blood Carboxyhemoglobin 0.5 Arterial Blood Methemoglobin 0.2 Blood Gas A-a O2 Differential 55.4 H Oxyhemoglobin Percent 94.8 Total Hemoglobin 15.8 Blood Gas Temperature 37.0 Blood Gas Modality NASAL CANNULA FiO2 27.0 Blood Gas Notified Whom LC Blood Gas Notified Time 11/20/2016 10:43:00 AM Medications Medications Current Medications Ondansetron HCl (Zofran Inj) 4 mg Q6H PRN IV NAUSEA AND/OR VOMITING; Start at 15:00 Acetaminophen (Tylenol Tab) 650 mg Q6H PRN PO PAIN LEVEL 1-3 OR FEVER; Start at 15:00 Acetaminophen/ Hydrocodone Bitart ([place] (5/325)) 1 tab Q6H PRN PO PAIN LEVEL 4 -6 Last administered on 11/19/16 20:48; Admin Dose 1 TAB; Start 11/14/16 at 15: 00 Thiamine HCl (Vitamin B1) 100 mg DAILY PO Last administered on 11/19/16 11:36 ; Admin Dose 100 MG; Start 11/15/16 at 09:00 Nicotine (Nicoderm 14 Mg/ 24hr) 1 patch DAILY TRANSDERM Last administered on 11:36; Admin Dose 1 PATCH; Start 11/14/16 at 16:30 Clonidine (Catapres) 0.1 mg Q4H PRN GTB HTN; Start 11/14/16 at 16:00 Lorazepam (Ativan) 1 mg Q1HWA PRN IV Anxiety Last administered on 11/20/16 10: 24; Admin Dose 1 MG; Start 11/16/16 at 14:00 Carvedilol (Coreg) 6.25 mg BID PO Last administered on 11/19/16 20:48; Admin Dose 6.25 MG; Start 11/16/16 at 21:00 Lisinopril (Zestril) 5 mg DAILY PO ; Start 11/20/16 at 14:00 Nitroglycerin (Nitroglycerin (Sl Tab) 0.4 Mg) 1 tab Q5M PRN SL CHEST PAIN Last administered on 11/18/16 15:47; Admin Dose 1 TAB; Start 11/18/16 at 16:00 Salmeterol Xinafoate/ Fluticasone 1 inh 1 inh BID INH Last administered on 11/19 20:49; Admin Dose 1 INH; Start 11/19/16 at 10:00 Levofloxacin/ Dextrose (Levaquin 500mg/ D5W 100 ml (Pmx)) 100 ml @ 100 mls/hr Q24H IVPB Last administered on 11/19/16 12:16; Admin Dose 100 MLS/HR; Start at 10:00 Methocarbamol (Robaxin) 1,500 mg TID PRN PO muscle spasm; Start 11/20/16 at 13: 30 RAFAEL RUVALCABA Nov 20, 2016 13:22
[2016-11-20] MEDS ORDERED: METHOCARBAMOL 750 MG TAB PO PRN (13:30)
[2016-11-20] MEDS: LISINOPRIL 5 MG TAB PO SCH (15:19)
--- NOTE | 2016-11-20 17:28 | PN ---
Date/Time of Note Date/Time of Note DATE: 11/20/16 TIME: 17:24 Assessment/Plan VTE Prophylaxis VTE Prophylaxis Intervention: ambulation Lines/Catheters [facility] Saline Lock Urinary Cath still in place: No Assessment/Plan Chief Complaint/Hosp Course Assessment and plan 1. Acute CHF exacerbation. systolic dysfunction Cardiology is following. po lasix increased per nephro today. cards started spironolactone. 2. Essential hypertension. Continue antihypertensives and adjust as needed 3. History of alcohol abuse. Suspect underlying alcohol withdrawal. Continue with benzodiazepines as needed. 4. Cigarette smoking. Patient educated about cessation. on nicotine patch now 5. History of substance abuse. Patient educated about illicit drug use cessation. 6. 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 suspect pna. abx as needed 8. chest wall pain: appears musculoskeletal at this time, starting robaxin. Disposition and plan: optimize fluid balance. Problems: Subjective 24 Hr Interval Summary Free Text/Dictation patient concerned about overall course and states he has left sided chest pain on inspiration and expiration, worsens when he presses deeply. Exam/Review of Systems Vital Signs Vitals Vital Signs Date Time Temp Pulse Resp B/P Pulse Ox O2 Delivery O2 Flow Rate FiO2 11/20/16 16:46 114 11/20/16 15:32 98.2 20 121/83 98 11/20/16 14:33 2.0 11/20/16 07:43 Nasal Cannula 11/19/16 20:16 97 Intake and Output 11/19/16 11/19/16 11/20/16 15:00 23:00 07:00 Intake Total 200 ml 850 ml 500 ml Balance 200 ml 850 ml 500 ml Exam Constitutional: alert, oriented Psych: nl mood/affect Head: normocephalic, atraumatic Respiratory: diminished breath sounds with congestion Cardiovascular: regular rate, left chest wall painful with palpation Gastrointestinal: non-tender, soft 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, nl mental status, nl speech Results Result Diagram: 11/20/16 0600 11/20/16 0600 Results 24 hrs Laboratory Tests Test 11/20/16 06:00 11/20/16 08:00 White Blood Count 10.9 H Red Blood Count 4.20 L Hemoglobin 13.3 L Hematocrit 42.8 Mean Corpuscular Volume 101.9 H Mean Corpuscular Hemoglobin 31.7 Mean Corpuscular Hemoglobin Concent 31.1 L Red Cell Distribution Width 13.7 Platelet Count 291 Mean Platelet Volume 9.2 Neutrophils % 64.2 Lymphocytes % 20.5 Monocytes % 11.5 H Eosinophils % 2.8 Basophils % 0.4 Nucleated Red Blood Cells % 0.0 Neutrophils # 7.0 Lymphocytes # 2.2 Monocytes # 1.3 H Eosinophils # 0.3 Basophils # 0.0 Nucleated Red Blood Cells # 0.0 Sodium Level 139 Potassium Level 3.9 Chloride Level 100 Carbon Dioxide Level 34 H Anion Gap 9 Blood Urea Nitrogen 24 H Creatinine 1.03 Glucose Level 116 Calcium Level 8.7 Phosphorus Level 4.3 Albumin 3.0 L Blood Gas Specimen Source Blood arterial Arterial Blood Date Drawn 11/20/2016 10:30:00 AM Arterial Blood pH (Temp corrected) 7.432 Arterial Blood pCO2 (Temp correct) 51.7 H Arterial Blood pO2 (Temp corrected) 76.0 L Arterial Blood HCO3 33.7 H Arterial Blood Base Excess 7.7 H Arterial Blood Oxygen Saturation 95.5 Shyam Test ACCEPTAB Arterial Blood Gas Puncture Site Right Radial Arterial Blood Carboxyhemoglobin 0.5 Arterial Blood Methemoglobin 0.2 Blood Gas A-a O2 Differential 55.4 H Oxyhemoglobin Percent 94.8 Total Hemoglobin 15.8 Blood Gas Temperature 37.0 Blood Gas Modality NASAL CANNULA FiO2 27.0 Blood Gas Notified Whom LC Blood Gas Notified Time 11/20/2016 10:43:00 AM Medications Medications Current Medications Ondansetron HCl (Zofran Inj) 4 mg Q6H PRN IV NAUSEA AND/OR VOMITING; Start at 15:00 Acetaminophen (Tylenol Tab) 650 mg Q6H PRN PO PAIN LEVEL 1-3 OR FEVER; Start at 15:00 Acetaminophen/ Hydrocodone Bitart ([place] (5/325)) 1 tab Q6H PRN PO PAIN LEVEL 4 -6 Last administered on 11/19/16 20:48; Admin Dose 1 TAB; Start 11/14/16 at 15: 00 Thiamine HCl (Vitamin B1) 100 mg DAILY PO Last administered on 11/20/16 13:17 ; Admin Dose 100 MG; Start 11/15/16 at 09:00 Nicotine (Nicoderm 14 Mg/ 24hr) 1 patch DAILY TRANSDERM Last administered on 13:17; Admin Dose 1 PATCH; Start 11/14/16 at 16:30 Clonidine (Catapres) 0.1 mg Q4H PRN GTB HTN; Start 11/14/16 at 16:00 Lorazepam (Ativan) 1 mg Q1HWA PRN IV Anxiety Last administered on 11/20/16 10: 24; Admin Dose 1 MG; Start 11/16/16 at 14:00 Carvedilol (Coreg) 6.25 mg BID PO Last administered on 11/20/16 13:18; Admin Dose 6.25 MG; Start 11/16/16 at 21:00 Lisinopril (Zestril) 5 mg DAILY PO Last administered on 11/20/16 15:19; Admin Dose 5 MG; Start 11/20/16 at 14:00 Nitroglycerin (Nitroglycerin (Sl Tab) 0.4 Mg) 1 tab Q5M PRN SL CHEST PAIN Last administered on 11/18/16 15:47; Admin Dose 1 TAB; Start 11/18/16 at 16:00 Salmeterol Xinafoate/ Fluticasone 1 inh 1 inh BID INH Last administered on 11/20 13:16; Admin Dose 1 INH; Start 11/19/16 at 10:00 Levofloxacin/ Dextrose (Levaquin 500mg/ D5W 100 ml (Pmx)) 100 ml @ 100 mls/hr Q24H IVPB Last administered on 11/20/16 13:19; Admin Dose 100 MLS/HR; Start at 10:00 Methocarbamol (Robaxin) 1,500 mg TID PRN PO muscle spasm Last administered on 16:34; Admin Dose 1,500 MG; Start 11/20/16 at 13:30 Spironolactone (Aldactone) 12.5 mg DAILY PO ; Start 11/21/16 at 09:00 JONATAN FOSTER Nov 20, 2016 17:28
[2016-11-21] VITALS (7 sets, daily range): BP systolic 101–129; BP diastolic 61–81; PULSE 101–106; RESP 16–22
[2016-11-21] MEDS: FUROSEMIDE 40 MG TAB PO SCH ×2 (06:32→17:30)
[2016-11-21 06:48] LABS: BASOPHIL # 0.1 10^3/ul (0.0-0.1); BASOPHILS % 0.5 % (0.0-2.0); EOSINOPHILS # 0.3 10^3/ul (0.0-0.5); EOSINOPHILS % 3.1 % (0.0-7.0); HEMATOCRIT 42.6 % (42.0-52.0); HEMOGLOBIN 13.2 g/dl (14.0-18.0); LYMPHOCYTES # 2.5 10^3/ul (0.8-2.9); LYMPHOCYTES % 23.9 % (15.0-51.0); MEAN CORPUSCULAR HEMOGLOBIN 30.8 pg (29.0-33.0); MEAN CORPUSCULAR VOLUME 99.5 fl (82.0-101.0); MEAN PLATELET VOLUME 9.4 fl (7.4-10.4); MONOCYTE # 1.3 10^3/ul (0.3-0.9); MONOCYTES % 12.3 % (0.0-11.0); NEUTROPHIL # 6.2 10^3/ul (1.6-7.5); NEUTROPHILS % 59.6 % (39.0-77.0); PLATELET COUNT 319 10^3/UL (140-415); RED BLOOD COUNT 4.28 10^6/ul (4.70-6.10); RED CELL DISTRIBUTION WIDTH 13.6 % (11.5-14.5); WHITE BLOOD COUNT 10.4 10^3/ul (4.8-10.8)
[2016-11-21 07:17] LABS: CALCIUM 8.8 mg/dl (8.4-10.2); CREATININE 1.09 mg/dl (0.61-1.24); POTASSIUM 3.8 mmol/L (3.5-5.1)
[2016-11-21] MEDS: LEVALBUTEROL (NEB) 0.63 MG/3 ML AMP HHN SCH ×2 (07:57→13:57)
[2016-11-21] MEDS: IPRATROPIUM (NEB) 0.5 MG/2.5 ML AMP HHN SCH ×2 (07:57→13:57)
[2016-11-21] MEDS: THIAMINE 100 MG TAB PO SCH (08:11)
[2016-11-21] MEDS: SALMETEROL/FLUTICASONE 250/50 INHA INH SCH (08:12)
[2016-11-21] MEDS: LISINOPRIL 5 MG TAB PO SCH (08:12)
[2016-11-21] MEDS: NICOTINE (14 MG/24 HR) PATCH TRANSDERM SCH (08:13)
[2016-11-21] MEDS ORDERED: SPIRONOLACTONE 25 MG TAB PO SCH (09:00)
[2016-11-21] MEDS: LEVOFLOXACIN 500MG/D5W (PMX) 100 ML IVPB SCH (09:59)
--- NOTE | 2016-11-21 12:21 | CONS ---
Date/Time of Note Date/Time of Note DATE: 11/21/16 TIME: 12:17 Assessment/Plan Assessment/Plan Chief Complaint/Hosp Course IMP: 1.CHF-EF 20-25% by echo read this admission and thus systolic acute on chronic- Neg trop x 3 2.HTN 3.ETOH/substance abuse abuse 4.LE edema 5.Pos Tob 6. Chest atypical-Negative trop's REcc: -Tele -serial ecg -Continue coreg -Continue zestril/aldactone -Nicotine patch/smoking cessation -Continue benzo's -follow volume status closely and will check cxr to further assess for ongoing PVC Problems: Consultation Date/Type/Reason Admit Date/Time Nov 14, 2016 at 14:45 Initial Consult Date 11/15/2016 Type of Consultation: cardiology Reason for Consultation CHF Referring Provider: ODMINIQUE MEDINA Exam/Review of Systems Vital Signs Vitals Vital Signs Date Time Temp Pulse Resp B/P Pulse Ox O2 Delivery O2 Flow Rate FiO2 11/21/16 11:27 97.9 96 22 101/61 97 11/21/16 10:16 Room Air 11/21/16 08:00 2.0 11/21/16 07:57 22 Intake and Output 11/20/16 11/20/16 11/21/16 15:00 23:00 07:00 Intake Total 100 ml 800 ml 500 ml Output Total 2200 ml Balance 100 ml -1400 ml 500 ml Exam Review of Systems: CONSTITUTIONAL: No fevers, chills. PULMONARY: No sob CARDIOVASCULAR: No chest pain/palpitations GASTROINTESTINAL: No nausea/vomiting. GENITOURINARY: No hematuria/dysuria. MUSCULOSKELETAL: No myagias/arthalgias. PSYCHIATRIC: The patient denies depression. NEUROLOGIC: No weakness Constitutional: alert, oriented Psych: no complaints Head: normocephalic ENMT: mucosa pink and moist Neck: jvd (9cm water), supple Respiratory: diminished breath sounds Cardiovascular: regular rate and rhythm Gastrointestinal: non-tender, soft Musculoskeletal: muscle tone (normal) Extremities: edema (trace/B) Results Result Diagram: 11/21/16 0600 11/21/16 0600 Results 24 hrs Laboratory Tests Test 11/21/16 06:00 White Blood Count 10.4 Red Blood Count 4.28 L Hemoglobin 13.2 L Hematocrit 42.6 Mean Corpuscular Volume 99.5 Mean Corpuscular Hemoglobin 30.8 Mean Corpuscular Hemoglobin Concent 31.0 L Red Cell Distribution Width 13.6 Platelet Count 319 Mean Platelet Volume 9.4 Neutrophils % 59.6 Lymphocytes % 23.9 Monocytes % 12.3 H Eosinophils % 3.1 Basophils % 0.5 Nucleated Red Blood Cells % 0.0 Neutrophils # 6.2 Lymphocytes # 2.5 Monocytes # 1.3 H Eosinophils # 0.3 Basophils # 0.1 Nucleated Red Blood Cells # 0.0 Sodium Level 141 Potassium Level 3.8 Chloride Level 102 Carbon Dioxide Level 32 H Anion Gap 11 Blood Urea Nitrogen 24 H Creatinine 1.09 Glucose Level 96 Calcium Level 8.8 Magnesium Level 1.9 Medications Medications Current Medications Ondansetron HCl (Zofran Inj) 4 mg Q6H PRN IV NAUSEA AND/OR VOMITING; Start at 15:00 Acetaminophen (Tylenol Tab) 650 mg Q6H PRN PO PAIN LEVEL 1-3 OR FEVER; Start at 15:00 Acetaminophen/ Hydrocodone Bitart ([place] (5/325)) 1 tab Q6H PRN PO PAIN LEVEL 4 -6 Last administered on 11/19/16 20:48; Admin Dose 1 TAB; Start 11/14/16 at 15: 00 Thiamine HCl (Vitamin B1) 100 mg DAILY PO Last administered on 11/21/16 08:11 ; Admin Dose 100 MG; Start 11/15/16 at 09:00 Nicotine (Nicoderm 14 Mg/ 24hr) 1 patch DAILY TRANSDERM Last administered on 08:13; Admin Dose 1 PATCH; Start 11/14/16 at 16:30 Clonidine (Catapres) 0.1 mg Q4H PRN GTB HTN; Start 11/14/16 at 16:00 Lorazepam (Ativan) 1 mg Q1HWA PRN IV Anxiety Last administered on 11/20/16 10: 24; Admin Dose 1 MG; Start 11/16/16 at 14:00 Carvedilol (Coreg) 6.25 mg BID PO Last administered on 11/21/16 08:13; Admin Dose 6.25 MG; Start 11/16/16 at 21:00 Lisinopril (Zestril) 5 mg DAILY PO Last administered on 11/21/16 08:12; Admin Dose 5 MG; Start 11/20/16 at 14:00 Nitroglycerin (Nitroglycerin (Sl Tab) 0.4 Mg) 1 tab Q5M PRN SL CHEST PAIN Last administered on 11/18/16 15:47; Admin Dose 1 TAB; Start 11/18/16 at 16:00 Salmeterol Xinafoate/ Fluticasone 1 inh 1 inh BID INH Last administered on 11/21 08:12; Admin Dose 1 INH; Start 11/19/16 at 10:00 Levofloxacin/ Dextrose (Levaquin 500mg/ D5W 100 ml (Pmx)) 100 ml @ 100 mls/hr Q24H IVPB Last administered on 11/21/16 09:59; Admin Dose 100 MLS/HR; Start at 10:00 Methocarbamol (Robaxin) 1,500 mg TID PRN PO muscle spasm Last administered on 16:34; Admin Dose 1,500 MG; Start 11/20/16 at 13:30 Spironolactone (Aldactone) 12.5 mg DAILY PO Last administered on 11/21/16 08: 12; Admin Dose 12.5 MG; Start 11/21/16 at 09:00 RAFAEL RUVALCABA Nov 21, 2016 12:21
--- NOTE | 2016-11-21 14:43 | RADRPT ---
PROCEDURE: XR Chest. CLINICAL INDICATION: Shortness of breath. TECHNIQUE: Single frontal view. COMPARISON: 11/18/2016. FINDINGS: The right lung is clear. There is left basilar atelectasis, improved. The heart is enlarged. There is no right pleural effusion. There is a small left pleural effusion. There is no pneumothorax. IMPRESSION: 1. Left basilar atelectasis, improved. 2. Cardiomegaly. 3. A small left pleural effusion. RPTAT: QQ .Helio Rangel MD, MD Date Time Electronically viewed and signed by .Helio Rangel MD, MD on 11/21/2016 14:43 .R/
--- NOTE | 2016-11-21 15:59 | PN ---
Date/Time of Note Date/Time of Note DATE: 11/21/16 TIME: 15:53 Assessment/Plan VTE Prophylaxis VTE Prophylaxis Intervention: ambulation Lines/Catheters IV Catheter Type (from Nrs): Saline Lock Urinary Cath still in place: No Assessment/Plan Chief Complaint/Hosp Course 1. FEDERICO: suspect secondary to cardiorenal syndrome and much needed diuresis. UA bland making vasculitis unlikely and renal function turning the corner. Continue to keep net negative fluid balance and continue RAAS blockade but would avoid dual raas blockade for now as at risk of glomerular hypoperfusion, but if renal waller stable as outpatient may resume ACEi. 2. CHF (EF20%): as above, continue diuretics. Patient transitioned to oral diuretic regimen. 3. Alcoholism: on DT px 4. Metabolic alkalosis: diuretics scaled back, keep K > 4, no need for carbonic anhydrase inhibitor. Ok from renal standpoint for d/c Problems: Subjective 24 Hr Interval Summary Free Text/Dictation Patient being seen for FEDERICO. NO overnight events noted. Constitutional: no complaints Eyes: no complaints ENT: no complaints Respiratory: no complaints Cardiovascular: no complaints Gastrointestinal: no complaints Genitourinary: no complaints Musculoskeletal: no complaints Skin: no complaints Neurologic: no complaints Endocrine: no complaints Lymphatic: no complaints Exam/Review of Systems Vital Signs Vitals Vital Signs Date Time Temp Pulse Resp B/P Pulse Ox O2 Delivery O2 Flow Rate FiO2 11/21/16 13:57 102 22 92 22 11/21/16 11:27 97.9 101/61 11/21/16 10:16 Room Air 11/21/16 08:00 2.0 Intake and Output 11/20/16 11/20/16 11/21/16 15:00 23:00 07:00 Intake Total 100 ml 800 ml 500 ml Output Total 2200 ml Balance 100 ml -1400 ml 500 ml Exam Constitutional: alert, oriented Psych: no complaints Head: normocephalic Eyes: nl conjunctiva ENMT: nl external ears & nose Neck: supple Respiratory: clear to auscultation Cardiovascular: regular rate and rhythm Gastrointestinal: soft Musculoskeletal: nl extremities to inspection Extremities: normal pulses Results Result Diagram: 11/21/16 0600 11/21/16 0600 Results 24 hrs Laboratory Tests Test 11/21/16 06:00 White Blood Count 10.4 Red Blood Count 4.28 L Hemoglobin 13.2 L Hematocrit 42.6 Mean Corpuscular Volume 99.5 Mean Corpuscular Hemoglobin 30.8 Mean Corpuscular Hemoglobin Concent 31.0 L Red Cell Distribution Width 13.6 Platelet Count 319 Mean Platelet Volume 9.4 Neutrophils % 59.6 Lymphocytes % 23.9 Monocytes % 12.3 H Eosinophils % 3.1 Basophils % 0.5 Nucleated Red Blood Cells % 0.0 Neutrophils # 6.2 Lymphocytes # 2.5 Monocytes # 1.3 H Eosinophils # 0.3 Basophils # 0.1 Nucleated Red Blood Cells # 0.0 Sodium Level 141 Potassium Level 3.8 Chloride Level 102 Carbon Dioxide Level 32 H Anion Gap 11 Blood Urea Nitrogen 24 H Creatinine 1.09 Glucose Level 96 Calcium Level 8.8 Magnesium Level 1.9 B-Type Natriuretic Peptide 4600 H Medications Medications Current Medications Ondansetron HCl (Zofran Inj) 4 mg Q6H PRN IV NAUSEA AND/OR VOMITING; Start at 15:00 Acetaminophen (Tylenol Tab) 650 mg Q6H PRN PO PAIN LEVEL 1-3 OR FEVER; Start at 15:00 Acetaminophen/ Hydrocodone Bitart (Carnation (5/325)) 1 tab Q6H PRN PO PAIN LEVEL 4 -6 Last administered on 11/19/16 20:48; Admin Dose 1 TAB; Start 11/14/16 at 15: 00 Thiamine HCl (Vitamin B1) 100 mg DAILY PO Last administered on 11/21/16 08:11 ; Admin Dose 100 MG; Start 11/15/16 at 09:00 Nicotine (Nicoderm 14 Mg/ 24hr) 1 patch DAILY TRANSDERM Last administered on 08:13; Admin Dose 1 PATCH; Start 11/14/16 at 16:30 Clonidine (Catapres) 0.1 mg Q4H PRN GTB HTN; Start 11/14/16 at 16:00 Lorazepam (Ativan) 1 mg Q1HWA PRN IV Anxiety Last administered on 11/20/16 10: 24; Admin Dose 1 MG; Start 11/16/16 at 14:00 Carvedilol (Coreg) 6.25 mg BID PO Last administered on 11/21/16 08:13; Admin Dose 6.25 MG; Start 11/16/16 at 21:00 Lisinopril (Zestril) 5 mg DAILY PO Last administered on 11/21/16 08:12; Admin Dose 5 MG; Start 11/20/16 at 14:00 Nitroglycerin (Nitroglycerin (Sl Tab) 0.4 Mg) 1 tab Q5M PRN SL CHEST PAIN Last administered on 11/18/16 15:47; Admin Dose 1 TAB; Start 11/18/16 at 16:00 Salmeterol Xinafoate/ Fluticasone 1 inh 1 inh BID INH Last administered on 11/21 08:12; Admin Dose 1 INH; Start 11/19/16 at 10:00 Levofloxacin/ Dextrose (Levaquin 500mg/ D5W 100 ml (Pmx)) 100 ml @ 100 mls/hr Q24H IVPB Last administered on 11/21/16 09:59; Admin Dose 100 MLS/HR; Start at 10:00 Methocarbamol (Robaxin) 1,500 mg TID PRN PO muscle spasm Last administered on 16:34; Admin Dose 1,500 MG; Start 11/20/16 at 13:30 Spironolactone (Aldactone) 12.5 mg DAILY PO Last administered on 11/21/16 08: 12; Admin Dose 12.5 MG; Start 11/21/16 at 09:00 CAROLYNN FERNANDO MD Nov 21, 2016 15:59
[2016-11-21] MEDS ORDERED: MAGNESIUM OXIDE 400 MG TAB PO ONE (16:00)
[2016-11-21] MEDS ORDERED: POTASSIUM CHLORIDE (SR) 10 MEQ TAB PO ONE (16:00)
[2016-11-21] MEDS ORDERED: SPIR25TA PO (16:02)
[2016-11-21] MEDS ORDERED: CARV6.2579 PO (16:02)
[2016-11-21] MEDS ORDERED: METH750T2 PO (16:02)
[2016-11-21] MEDS ORDERED: FURO40TA4 PO (16:02)
[2016-11-21] MEDS ORDERED: Thiamine PO (16:02)
[2016-11-21] MEDS ORDERED: ADV25050 INH (16:02)
--- NOTE | 2016-11-21 16:09 | PDOCDIS ---
Discharge Instructions DIAGNOSIS Discharge Diagnosis 1. Acute CHF exacerbation. systolic dysfunction 2. Essential hypertension. 3. History of alcohol abuse. 4. Cigarette smoking. 5. History of substance abuse. 6. FEDERICO. 7. suspect pna. CONDITION Patient Condition: Stable HOME CARE INSTRUCTIONS: Special Diet: cardiac FOLLOW UP/APPOINTMENTS Follow-up Plan 1. Follow up with Dr. Jeanmarie Lomeli in one week 2. Follow up with your primary care provider in one week DOMINIQUE MEDINA Nov 21, 2016 16:09
--- NOTE | 2016-11-24 14:37 | DS ---
Date/Time of Note Date/Time of Note DATE: 11/24/16 TIME: 14:31 Discharge Summary Admission/Discharge Info Admit Date/Time Nov 14, 2016 at 14:45 Discharge Date/Time Nov 21, 2016 at 17:40 Discharge Diagnosis 1. Acute CHF exacerbation. systolic dysfunction 2. Essential hypertension. 3. History of alcohol abuse. 4. Cigarette smoking. 5. History of substance abuse. 6. FEDERICO. 7. suspect pna. Patient Condition: Stable Consults 1. Dr. Marry Theodore 2. Dr. Jeanmarie Lomeli Hospital Course This is a 51-year-old male with history of hypertension, current tobacco user, alcohol user, recreational drug user, who came to [facility] due to reports of increased shortness of breath and increased swelling bilateral lower extremities for several days. Patient also reports having a nonproductive cough. As such she went to [facility] for further evaluation. Initial imaging of his chest showed cardiomegaly with calcified atherosclerosis in the aorta with central pulmonary vascular congestion. He also was seen with a small left pleural effusion and a BNP of 9710. Patient was with suspected CHF exacerbation. He did have an echocardiogram done that did show him to have an ejection fraction of 25%. He was seen by powerhouse mechanic for this issue. He did have serial troponins drawn which were all essentially negative. We did provide the patient with diuretic therapy as well as beta-serina medication. Did have some acute renal insufficiency and we did get software reliability engineer to follow. He was initially placed on HEATHER inhibitor but this was discontinued due to his acute renal insufficiency. During his course of stay he did improve. He is otherwise optimized medically. He was resumed on antihypertensives for his hypertension. He was advised for alcohol cessation and cigarette smoking cessation as well. He was also educated about cessation of illicit drug use. For his renal insufficiency as previously mentioned he was seen by software reliability engineer and we did renally dose his medications. Further imaging of his chest showed that he might have had pneumonia and for this he was started an antibiotic and he did have good response with this. Patient also did have a history of noncompliance with his medication and was advised for adherence to his new cardiac regimen. During his course of stay he did improve. The plan of care was discussed with the patient and patient did verbalize understanding. On the day of discharge patient was in stable condition Discussed plan of care with Dr. Weaver Vancleave Meds Active Scripts [Thiamine] 100 MG TAB No Conflict Check, 100 MG PO DAILY, #30 Prov:DANEDOMINIQUE TORRES 11/21/16 Spironolactone* (Aldactone*) 25 Mg Tablet, 12.5 MG PO DAILY for 30 Days, TAB Prov:DANEDOMINIQUE TORRES 11/21/16 Salmeterol Xinaf/Fluticasone* (Advair*) 250-50 Diskus Inhaler, 1 INH INH BID for 30 Days, #1 INH Prov:DANEDOMINIQUE TORRES 11/21/16 Methocarbamol* (Methocarbamol*) 750 Mg Tablet, 1500 MG PO TID Y for muscle spasm , #15 TAB Prov:DANEDOMINIQUE TORRES 11/21/16 Furosemide* (Furosemide*) 40 Mg Tablet, 40 MG PO BID DIURETICS for 30 Days, #60 TAB Prov:DANEDOMINIQUE TORRES 11/21/16 Carvedilol* (Carvedilol*) 6.25 Mg Tablet, 6.25 MG PO BID for 30 Days, #60 TAB Prov:DOMINIQUE MEDINA 11/21/16 Reported Medications Clonidine Hcl* (Clonidine Hcl*) 0.3 Mg Tablet, 0.3 MG PO BID Y for HTN, TAB 11/14/16 Albuterol Sulfate* (Proair HFA*) 8.5 Gm Hfa.aer.ad, 2 PUFF INH Q6H Y for WHEEZING AND SOB, #1 INHALER 11/14/16 Discontinued Reported Medications Diltiazem Hcl* (Diltiazem XT) 300 Mg Capsule.er, 300 MG PO DAILY, #30 CAP 11/14/16 Follow-up Plan 1. Follow up with Dr. Jeanmarie Lomeli in one week 2. Follow up with your primary care provider in one week Primary Care Provider Not On Staff Doctor Time spent on discharge: > 30 minutes DOMINIQUE MEDINA Nov 24, 2016 14:37
== END 2016-11-21 17:40 | disposition home or self-care (01) | DRG 291 ==
LOC: E/R 09:27 → TEL 14:45 → MS1 11-16 10:23 → TEL 11-16 15:20
PROVIDERS: ADMIT Internal Medicine; ATTEND Internal Medicine
DX: I11.0 Hypertensive heart disease with heart failure (principal); J18.9 Pneumonia, unspecified organism; N17.9 Acute kidney failure, unspecified; E87.3 Alkalosis; I50.23 Acute on chronic systolic (congestive) heart failure; I49.3 Ventricular premature depolarization; F17.210 Nicotine dependence, cigarettes, uncomplicated; F10.20 Alcohol dependence, uncomplicated; R07.89 Other chest pain; F15.10 Other stimulant abuse, uncomplicated
CPT/HCPCS: 36415; 36600; 71010; 80048; 80053; 80061; 80069; 80306; 80307; 81003; 82550; 82553; 82803; 82962; 83036; 83605; 83735; 83880; 84100; 84439; 84443; 84484; 85025; 85610; 85730; 90686; 93005; 93306; 94640; 94664; 96374; 97110; 97161; J1940; J1650; J1956; J2060; J3475

== ENCOUNTER 2016-12-01 10:57 | Inpatient (IN) | payer MEDICAID ==
[~2016-12-01] VITALS: Ht 165.1 cm; Wt 65.2 kg
[~2016-12-01 10:57] MED LIST: ADV25050 INH; ALBU8.5H3 INH; CARV6.2579 PO; CLON0.3T PO; FURO40TA4 PO; METH750T2 PO; SPIR25TA PO; Thiamine PO
[2016-12-01] MEDS ORDERED: ASPIRIN 325 MG TAB PO STA (11:35)
[2016-12-01 11:56] LABS: BASOPHIL # 0.1 10^3/ul (0.0-0.1); BASOPHILS % 0.6 % (0.0-2.0); EOSINOPHILS # 0.1 10^3/ul (0.0-0.5); EOSINOPHILS % 0.6 % (0.0-7.0); HEMATOCRIT 46.8 % (42.0-52.0); HEMOGLOBIN 14.7 g/dl (14.0-18.0); LYMPHOCYTES # 2.8 10^3/ul (0.8-2.9); LYMPHOCYTES % 17.8 % (15.0-51.0); MEAN CORPUSCULAR HEMOGLOBIN 30.5 pg (29.0-33.0); MEAN CORPUSCULAR HGB CONC 31.4 g/dl (32.0-37.0); MEAN CORPUSCULAR VOLUME 97.1 fl (82.0-101.0); MEAN PLATELET VOLUME 9.4 fl (7.4-10.4); MONOCYTE # 1.1 10^3/ul (0.3-0.9); MONOCYTES % 7.1 % (0.0-11.0); NEUTROPHIL # 11.7 10^3/ul (1.6-7.5); NEUTROPHILS % 73.3 % (39.0-77.0); PLATELET COUNT 419 10^3/UL (140-415); RED BLOOD COUNT 4.82 10^6/ul (4.70-6.10); RED CELL DISTRIBUTION WIDTH 13.6 % (11.5-14.5)
[2016-12-01] MEDS ORDERED: DILTIAZEM 25 MG INJ IV ONE ×2 (12:00→13:30)
--- NOTE | 2016-12-01 12:11 | RADRPT ---
PROCEDURE: XR Chest. CLINICAL INDICATION: Chest pain. TECHNIQUE: Single frontal view. COMPARISON: None. FINDINGS: The lungs are clear. The heart is enlarged. There is no pleural effusion. There is no pneumothorax. IMPRESSION: 1. Cardiomegaly. 2. Clear lungs. RPTAT: QQ .Helio Rangel MD, MD Date Time Electronically viewed and signed by .Helio Rangel MD, on 12/01/2016 12:10 .R/
[2016-12-01 12:12] LABS: ALBUMIN 4.2 g/dl (3.3-4.9); ALBUMIN/GLOBULIN RATIO 1.16; BILIRUBIN,INDIRECT 0.5 mg/dl (0-1.1); BILIRUBIN,TOTAL 0.5 mg/dl (0.2-1.3); CALCIUM 9.2 mg/dl (8.4-10.2); INR 1.09; PARTIAL THROMBOPLASTIN TIME 31.9 Sec (25.0-35.0); POTASSIUM 4.3 mmol/L (3.5-5.1); PROTIME 14.1 Sec (12.2-14.2); PT RATIO 1.1; TOTAL PROTEIN 7.8 g/dl (6.1-8.1)
--- NOTE | 2016-12-01 12:16 | ERA ---
ER Documentation Chief Complaint Date/Time DATE: 12/01/16 TIME: 12:11 Chief Complaint dc from hospital last wednesday, today cp since yesterday HPI This a 51-year-old alcoholic who was diagnosed with CHF and was admitted to the hospital here and discharged from here last Wednesday. Patient states today he had a sudden onset of heart racing with substernal chest pressure. He states that he has no shortness of breath but does have some recent history of the past couple days of some dyspnea on exertion and some mild orthopnea. He states that the pressure sensation in the chest is nonradiating. He says he was also diagnosed with what he thinks is atrial fibrillation last week. ROS All systems reviewed and are negative except as per history of present illness. Medications Home Meds Reported Medications Salmeterol Xinaf/Fluticasone* (Advair*) 250-50 Diskus Inhaler, 1 INH INHALATION BID, #1 INHALER 12/01/16 Spironolactone* (Aldactone*) 25 Mg Tablet, 12.5 MG PO DAILY, #60 TAB 12/01/16 Methocarbamol* (Robaxin*) 750 Mg Tablet, 750 MG PO BID Y for MUSCLE SPASMS, TAB 12/01/16 Discontinued Reported Medications Clonidine Hcl* (Clonidine Hcl*) 0.3 Mg Tablet, 0.3 MG PO BID Y for HTN, TAB 11/14/16 Albuterol Sulfate* (Proair HFA*) 8.5 Gm Hfa.aer.ad, 2 PUFF INH Q6H Y for WHEEZING AND SOB, #1 INHALER 11/14/16 Discontinued Scripts [Thiamine] 100 MG TAB No Conflict Check, 100 MG PO DAILY, #30 Prov:REGIDORDOMINIQUE 11/21/16 Spironolactone* (Aldactone*) 25 Mg Tablet, 12.5 MG PO DAILY for 30 Days, TAB Prov:REGIDORDOMINQIUE 11/21/16 Salmeterol Xinaf/Fluticasone* (Advair*) 250-50 Diskus Inhaler, 1 INH INH BID for 30 Days, #1 INH Prov:REGIDORDOMINIQUE 11/21/16 Methocarbamol* (Methocarbamol*) 750 Mg Tablet, 1500 MG PO TID Y for muscle spasm , #15 TAB Prov:REGIDORDOMINIQUE 11/21/16 Furosemide* (Furosemide*) 40 Mg Tablet, 40 MG PO BID DIURETICS for 30 Days, #60 TAB Prov:REGDOMINIQUE TORRES 11/21/16 Carvedilol* (Carvedilol*) 6.25 Mg Tablet, 6.25 MG PO BID for 30 Days, #60 TAB Prov:DOMINIQUE MEDINA 11/21/16 Allergies Allergies: Coded Allergies: No Known Allergy (Unverified , 12/01/16) PMhx/Soc History of Surgery: No Anesthesia Reaction: No Hx Neurological Disorder: No Hx Respiratory Disorders: No Hx Cardiac Disorders: Yes (htn, new onset chf, afib/flutter) Hx Psychiatric Problems: No Hx Miscellaneous Medical Probl: Yes (drug andalcohol abuse, essential HTN) Hx Alcohol Use: Yes (1 pint/day) Hx Substance Use: No Hx Tobacco Use: Yes Smoking Status: Current every day smoker FmHx Family History: No coronary disease Physical Exam Vitals Vital Signs Date Time Temp Pulse Resp B/P Pulse Ox O2 Delivery O2 Flow Rate FiO2 12/01/16 13:11 135 16 107/96 100 Nasal Cannula 2.0 12/01/16 12:15 91 22 94/67 100 Nasal Cannula 2.0 12/01/16 11:20 Nasal Cannula 2 12/01/16 11:07 98.1 134 20 129/90 99 Physical Exam Const: Well-developed, well-nourished Head: Atraumatic, normocephalic Eyes: Normal Conjunctiva, PERRLA, EOMI, normal sclera, no nystagmus ENT: Normal External Ears, Nose and Mouth, moist mucus membranes. Neck: Full range of motion. No meningismus, no lymphadenopathy. Resp: No increased work of breathing, bilateral crackles] Cardio: Tachycardia regular rhythm, no murmurs, S1 S2 present Abd: Soft, non tender x 4, non distended. Normal bowel sounds, no guarding or rebound, no pulsitile abdominal masses or bruits Skin: No petechiae or rashes, no ecchymosis , no maculopapular rash Back: No midline or flank tenderness Ext: No cyanosis, or edema, FROM x 4, normal inspection, neurovascularly intact x 4 Neur: Awake and alert, STR 5/5 x 4, sensation intact x 4, no focal findings, cerebellum intact Psych: Normal Mood and Affect Result Diagram: 12/01/16 1135 12/01/16 1135 Results 24 hrs Laboratory Tests Test 12/01/16 11:35 White Blood Count 16.010^3/ul Red Blood Count 4.8210^6/ul Hemoglobin 14.7g/dl Hematocrit 46.8% Mean Corpuscular Volume 97.1fl Mean Corpuscular Hemoglobin 30.5pg Mean Corpuscular Hemoglobin Concent 31.4g/dl Red Cell Distribution Width 13.6% Platelet Count 42361^3/UL Mean Platelet Volume 9.4fl Neutrophils % 73.3% Lymphocytes % 17.8% Monocytes % 7.1% Eosinophils % 0.6% Basophils % 0.6% Nucleated Red Blood Cells % 0.0/100WBC Neutrophils # 11.710^3/ul Lymphocytes # 2.810^3/ul Monocytes # 1.110^3/ul Eosinophils # 0.110^3/ul Basophils # 0.110^3/ul Nucleated Red Blood Cells # 0.010^3/ul Prothrombin Time 14.1Sec Prothrombin Time Ratio 1.1 INR International Normalized Ratio 1.09 Activated Partial Thromboplast Time 31.9Sec Sodium Level 139mmol/L Potassium Level 4.3mmol/L Chloride Level 102mmol/L Carbon Dioxide Level 28mmol/L Anion Gap 13 Blood Urea Nitrogen 17mg/dl Creatinine 1.00mg/dl Glucose Level 123mg/dl Calcium Level 9.2mg/dl Total Bilirubin 0.5mg/dl Direct Bilirubin 0.00mg/dl Indirect Bilirubin 0.5mg/dl Aspartate Amino Transf (AST/SGOT) 42IU/L Alanine Aminotransferase (ALT/SGPT) 56IU/L Alkaline Phosphatase 144IU/L Troponin I 0.034ng/ml B-Type Natriuretic Peptide 9140PG/ML Total Protein 7.8g/dl Albumin 4.2g/dl Globulin 3.60g/dl Albumin/Globulin Ratio 1.16 Current Medications Medications (Trade) Dose Ordered Sig/Lynda Route PRN Reason Start Time Stop Time Status Last Admin Dose Admin Aspirin (Aspirin) 325 mg ONCE STAT PO 12/01/16 11:35 12/01/16 11:37 DC 12/01/16 11:30 Diltiazem HCl (Cardizem Iv) 20 mg ONCE ONCE IV 12/01/16 12:00 12/01/16 12:01 DC 12/01/16 11:30 Lorazepam 1 mg 1 mg ONCE ONCE IV 12/01/16 13:00 12/01/16 13:01 DC 12/01/16 12:58 Sodium Chloride (NS) 250 ml @ 250 mls/hr Q1H ONCE IV 12/01/16 13:00 12/01/16 13:59 DC 12/01/16 12:44 Diltiazem HCl (Cardizem Iv) 10 mg ONCE ONCE IV 12/01/16 13:30 12/01/16 13:31 DC 12/01/16 13:15 Procedures/MDM EKG: Rate/Rhythm: Heart rate 134 atrial flutter with 2-1 conduction QRS, ST, QT: NORMAL NC, QRS, QT] Impression: Atrial flutter Patient was given intravenous Cardizem and EKG repeated EKG: Rate/Rhythm: Atrial flutter with variable block heart rate 93 QRS, ST, QT: NORMAL NC, QRS, QT] Impression: [NORMAL EKG] PROCEDURE: XR Chest. CLINICAL INDICATION: Chest pain. TECHNIQUE: Single frontal view. COMPARISON: None. FINDINGS: The lungs are clear. The heart is enlarged. There is no pleural effusion. There is no pneumothorax. IMPRESSION: 1. Cardiomegaly. 2. Clear lungs. RPTAT: QQ .Helio Rangel MD, Date Time Electronically viewed and signed by .Helio Rangel MD, MD on 12/01/2016 12:10 .R/ CC: ANGELITA ANDRADE DO Patient is having rate related angina. We will admit him to the hospital for rule out and further workup. Patient's symptoms are concerning for cardiac cause will require inpatient workup and continuous monitoring. Further w/u for ischemia, arrhythmia, PE or dissection will be deferred to the inpatient team. Accepting Care Team: Current data and ongoing care discussed. Time: Time of admission Primary Provider: [XOXOXO] Consulting: [XOXOXO] Outstanding Data: none Patient's heart rate again went to 130. Patient's blood pressure is 103 systolic. We will give another 2 50 cc of normal saline and 2.5 mg/5 mg Lopressor her heart rate response Critical Care Time: 30 minutes Treatments/Evaluations: Close monitoring and treatment of unstable vital signs, cardiorespiratory, and neurologic status, while maintaining tight balance of fluid, respiratory, and cardiac interventions. This time includes discussing the case with the patient and the patient's family. This time does not include all procedures stated elsewhere in this record. This time also includes reviewing old records, labs and radiological studies. This time includes examining and re-examining the patient. Additionally, this time also includes arranging care with admitting and consulting physicians. Departure Diagnosis: Primary Impression: Chest pain Qualified Code: R07.9 - Chest pain, unspecified type Additional Impression: Atrial flutter Qualified Code: I48.92 - Atrial flutter, unspecified type Condition: Stable ANGELITA ANDRADE DO Dec 01, 2016 12:16
[2016-12-01 12:26] LABS: TROPONIN-I 0.034 ng/ml (0.00-0.12)
[2016-12-01] MEDS ORDERED: SPIR25TA PO (12:31)
[2016-12-01] MEDS ORDERED: METH750T93 PO (12:31)
[2016-12-01] MEDS ORDERED: ADV25050 INHALATION (12:32)
[2016-12-01] MEDS ORDERED: SOD CHLORIDE 0.9% 250 ML IV ONE (13:00)
[2016-12-01] MEDS ORDERED: LORAZEPAM 2 MG INJ IV ONE ×2 (13:00→23:30)
[2016-12-01] MEDS ORDERED: SOD CHLORIDE 0.9% 250 ML IV STA (14:06)
[2016-12-01] MEDS ORDERED: METOPROLOL 5 MG INJ IV ONE (14:30)
[2016-12-01] MEDS ORDERED: ACETAMINOPHEN 325 MG TAB PO PRN ×2 (14:30→17:30)
[2016-12-01] MEDS ORDERED: ONDANSETRON 4 MG INJ IV PRN ×2 (14:30→17:30)
[2016-12-01] MEDS ORDERED: NICOTINE (14 MG/24 HR) PATCH TRANSDERM ONE (15:00)
[2016-12-01] MEDS ORDERED: MAGNESIUM SULFATE 2 GM/50 ML 50 ML IVPB ONE (16:30)
--- NOTE | 2016-12-01 17:16 | HP ---
Date/Time of Note Date/Time of Note DATE: 12/01/16 TIME: 17:08 Assessment/Plan VTE Prophylaxis VTE Prophylaxis Intervention: LMWH Lines/Catheters IV C[facility]ter Type (from [facility]): Peripheral IV Assessment/Plan Chief Complaint/Hosp Course 1. Chest discomfort with shortness of breath secondary to A. fib/flutter with RVR Patient given multiple rounds of diltiazem and metoprolol in the ED with persistent tachycardia We will start metoprolol p.o., of note BP on the lower side Consult cardiology Trend troponins 2. History of CHF with a known EF of 20%-fairly compensated Chest x-rays clear but BNP is elevated Continue home meds including diuretics 3. History of substance abuse 4. Leukocytosis-reactive No evidence of infection at this time Prophylaxis: Lovenox Problems: HPI/ROS Admit Date/Time Admit Date/Time December 01, 2016 Hx of Present Illness Patient is a 51-year-old male with history of CHF with EF 20 % likely secondary to alcohol and substance abuse, hypertension or tobacco abuse. Patient was recently hospitalized for CHF exacerbation. Patient presents with shortness of breath and chest discomfort, in the ER patient was found to be in A. fib/ flutter with RVR. Patient was given multiple rounds of Cardizem and metoprolol IV with mild improvement of the heart rate for a short period time only to become tachycardic. Patient does state that he feels better at this time, he has no other acute complaints. ROS Constitutional: improved, no complaints Eyes: no complaints ENT: no complaints Respiratory: no complaints Cardiovascular: no complaints Gastrointestinal: no complaints Genitourinary: no complaints Musculoskeletal: no complaints Skin: no complaints Neurologic: no complaints Endocrine: no complaints Lymphatic: no complaints Psychological: nl mood/affect, no complaints Immunologic: no complaints PMH/Family/Social Past Medical History As per HPI Past Surgical History Past Surgical Hx: no surgical history Family History Significant Family History: heart disease Social History Alcohol Use: heavy Smoking Status: Current every day smoker Drug Use: cocaine Exam/Review of Systems Vital Signs Vitals Vital Signs Date Time Temp Pulse Resp B/P Pulse Ox O2 Delivery O2 Flow Rate FiO2 12/01/16 14:48 88 24 116/80 95 Nasal Cannula 3.0 12/01/16 11:07 98.1 Exam Constitutional: alert, oriented Respiratory: clear to auscultation Cardiovascular: regular rate and rhythm Gastrointestinal: soft, No distended Musculoskeletal: nl extremities to inspection Labs Result Diagram: 12/01/16 1135 12/01/16 1135 Medications Medications Current Medications Magnesium Sulfate (Magnesium Sulfate 2 Gm/50 ml) 50 ml @ 25 mls/hr ONCE ONCE IVPB Last administered on 12/01/16t 16:42; Admin Dose 25 MLS/HR; Start at 16:30; Stop 12/01/16 at 18:29 TRUDI BARBOUR Dec 01, 2016 17:16
[2016-12-01] MEDS ORDERED: METHOCARBAMOL 750 MG TAB PO PRN (17:30)
[2016-12-01] MEDS ORDERED: DOCUSATE SODIUM 100 MG CAP PO PRN (17:30)
[2016-12-01] MEDS ORDERED: HYDROCODONE/APAP (5/325) TAB PO PRN (17:30)
[2016-12-01] MEDS ORDERED: morphine 2 MG INJ IV PRN (17:30)
[2016-12-01] MEDS ORDERED: NACL 0.9% 3 ML SYG IV SCH (17:30)
[2016-12-01 18:56] VITALS: PULSE 130
[2016-12-01 19:00] VITALS: BP 122/91; PULSE 129; RESP 22
[2016-12-01 19:56] VITALS: Ht 165.1 cm; Wt 65.2 kg
[2016-12-01] MEDS: METOPROLOL 50 MG TAB PO SCH (20:09)
[2016-12-01] MEDS: SALMETEROL/FLUTICASONE 250/50 INHA INH SCH (20:09)
[2016-12-01 20:11] VITALS: PULSE 130
[2016-12-01 20:29] VITALS: BP 107/72; RESP 18
[2016-12-01] MEDS ORDERED: LORAZEPAM 2 MG INJ ONE (21:09)
[2016-12-01] MEDS: LORAZEPAM 2 MG INJ IV PRN (21:14)
[2016-12-01] MEDS ORDERED: INFLUENZA VIRUS VACCINE 0.5 ML SYG IM* ONE (22:00)
[2016-12-01] MEDS: LEVALBUTEROL (NEB) 0.63 MG/3 ML AMP HHN PRN (22:41)
[2016-12-01] MEDS: IPRATROPIUM (NEB) 0.5 MG/2.5 ML AMP HHN PRN (22:41)
[2016-12-01 23:48] VITALS: BP 154/95; PULSE 122; RESP 32
[2016-12-01 23:59] VITALS: PULSE 120; RESP 26
[2016-12-02] VITALS (10 sets, daily range): BP systolic 99–155; BP diastolic 67–69; PULSE 103–121; RESP 20–24
[2016-12-02 00:16] LABS: AADO2 Arterial 83.8 mmHg (7.0-24.0); Allen Test ACCEPTAB; Arterial COHb 0.4 % (0.0-3.0); Arterial Fraction of Oxyhgb 92.1 % (93.0-99.0); Arterial HCO3 20.4 mmol/L (22.0-26.0); Arterial MetHb 0.3 % (0.0-1.5); Arterial Total Hemglobin 15.8 g/dl (12.0-18.0); MODE NASAL CANNULA
[2016-12-02] MEDS ORDERED: HALOPERIDOL 5 MG INJ IM ONE (00:30)
[2016-12-02] MEDS: LORAZEPAM 2 MG INJ IV PRN (03:56)
[2016-12-02] MEDS: IPRATROPIUM (NEB) 0.5 MG/2.5 ML AMP HHN PRN (04:33)
[2016-12-02] MEDS: LEVALBUTEROL (NEB) 0.63 MG/3 ML AMP HHN PRN (04:33)
[2016-12-02 08:17] LABS: BASOPHILS % 0.2 % (0.0-2.0); HEMATOCRIT 48.2 % (42.0-52.0); HEMOGLOBIN 14.9 g/dl (14.0-18.0); LYMPHOCYTES # 1.8 10^3/ul (0.8-2.9); LYMPHOCYTES % 9.8 % (15.0-51.0); MEAN CORPUSCULAR HEMOGLOBIN 30.7 pg (29.0-33.0); MEAN CORPUSCULAR HGB CONC 30.9 g/dl (32.0-37.0); MEAN CORPUSCULAR VOLUME 99.2 fl (82.0-101.0); MEAN PLATELET VOLUME 9.6 fl (7.4-10.4); MONOCYTE # 1.1 10^3/ul (0.3-0.9); MONOCYTES % 6.2 % (0.0-11.0); NEUTROPHIL # 14.8 10^3/ul (1.6-7.5); NEUTROPHILS % 82.1 % (39.0-77.0); NUCLEATED RED BLOOD CELLS% 0.1 /100WBC (0.0-0.0); PLATELET COUNT 379 10^3/UL (140-415); RED BLOOD COUNT 4.86 10^6/ul (4.70-6.10); RED CELL DISTRIBUTION WIDTH 13.6 % (11.5-14.5)
[2016-12-02] MEDS: METOPROLOL 50 MG TAB PO SCH (08:58)
[2016-12-02] MEDS: SALMETEROL/FLUTICASONE 250/50 INHA INH SCH ×2 (08:58→20:26)
[2016-12-02] MEDS ORDERED: ENOXAPARIN 40 MG/0.4 ML SYG SC SCH (09:00)
[2016-12-02] MEDS ORDERED: SPIRONOLACTONE 25 MG TAB PO SCH (09:00)
[2016-12-02 11:31] LABS: CALCIUM 8.5 mg/dl (8.4-10.2); CREATININE 2.17 mg/dl (0.61-1.24); MAGNESIUM 2.4 mg/dl (1.7-2.5); PHOSPHORUS 8.6 mg/dl (2.5-4.9)
[2016-12-02 11:36] LABS: POTASSIUM 6.6 mmol/L (3.5-5.1)
[2016-12-02] MEDS ORDERED: NA POLYST SULFON 15 GM/60 ML BTL PO STA (11:44)
[2016-12-02] MEDS ORDERED: SOD CHLORIDE 0.9% 500 ML IV ONE (13:30)
[2016-12-02] MEDS: FUROSEMIDE 40 MG INJ IV SCH (14:04)
--- NOTE | 2016-12-02 18:42 | PN ---
Date/Time of Note Date/Time of Note DATE: 12/02/16 TIME: 18:38 Assessment/Plan VTE Prophylaxis VTE Prophylaxis Intervention: LMWH Lines/Catheters IV Catheter Type (from Nrs): Peripheral IV Assessment/Plan Chief Complaint/Hosp Course 1. Chest discomfort with shortness of breath secondary to A. fib/flutter with RVR-heart rate still elevated Continue metoprolol p.o., of note BP on the lower side and hence will increase beta serina dose slowly Consult cardiology Trend troponins 2. History of CHF with a known EF of 20%-fairly compensated Chest x-rays clear but BNP is elevated Continue home meds including diuretics 3. History of substance abuse 4. Leukocytosis-reactive No evidence of infection at this time 5. Acute kidney injury with hyperkalemia-may be cardiorenal Lasix IV Nephrology consultation Kayexalate p.o. 1 DC Aldactone Prophylaxis: Lovenox Problems: Subjective 24 Hr Interval Summary Constitutional: no complaints Exam/Review of Systems Vital Signs Vitals Vital Signs Date Time Temp Pulse Resp B/P Pulse Ox O2 Delivery O2 Flow Rate FiO2 12/02/16 16:17 110 12/02/16 16:00 Nasal Cannula 3.0 12/02/16 15:59 98.0 20 99/68 98 Intake and Output 12/01/16 12/01/16 12/02/16 15:00 23:00 07:00 Intake Total 720 ml Balance 720 ml Exam Constitutional: alert, oriented Respiratory: clear to auscultation Cardiovascular: irregular rhythm Gastrointestinal: soft, No distended Musculoskeletal: nl extremities to inspection Results Result Diagram: 12/02/16 0749 12/02/16 1613 Results 24 hrs Laboratory Tests Test 12/01/16 23:39 12/02/16 07:49 12/02/16 10:58 12/02/16 16:13 Blood Gas Specimen Source Blood arterial Arterial Blood Date Drawn 12/02/2016 12:02:33 AM Arterial Blood pH (Temp corrected) 7.293 *L Arterial Blood pCO2 (Temp correct) 43.0 Arterial Blood pO2 (Temp corrected) 79.6 L Arterial Blood HCO3 20.4 L Arterial Blood Base Excess -6.0 L Arterial Blood Oxygen Saturation 92.7 L Shyam Test ACCEPTAB Arterial Blood Gas Puncture Site Right Radial Arterial Blood Carboxyhemoglobin 0.4 Arterial Blood Methemoglobin 0.3 Blood Gas A-a O2 Differential 83.8 H Oxyhemoglobin Percent 92.1 L Total Hemoglobin 15.8 Blood Gas Temperature 37.0 Blood Gas Modality NASAL CANNULA FiO2 30.0 Blood Gas Critical Value Read Back Rishabh Enrique RN Blood Gas Notified Whom [facility] Blood Gas Notified Time 12/02/2016 12:16:05 AM White Blood Count 18.0 H Red Blood Count 4.86 Hemoglobin 14.9 Hematocrit 48.2 Mean Corpuscular Volume 99.2 Mean Corpuscular Hemoglobin 30.7 Mean Corpuscular Hemoglobin Concent 30.9 L Red Cell Distribution Width 13.6 Platelet Count 379 Mean Platelet Volume 9.6 Neutrophils % 82.1 H Lymphocytes % 9.8 L Monocytes % 6.2 Eosinophils % 0.0 Basophils % 0.2 Nucleated Red Blood Cells % 0.1 H Neutrophils # 14.8 H Lymphocytes # 1.8 Monocytes # 1.1 H Eosinophils # 0.0 Basophils # 0.0 Nucleated Red Blood Cells # 0.0 Sodium Level 131 L Potassium Level 6.6 #*H 4.8 Chloride Level 97 Carbon Dioxide Level 22 Anion Gap 19 H Blood Urea Nitrogen 35 #H Creatinine 2.17 #H Glucose Level 140 Calcium Level 8.5 Phosphorus Level 8.6 H Magnesium Level 2.4 B-Type Natriuretic Peptide 79409 H Medications Medications Current Medications Ondansetron HCl (Zofran Inj) 4 mg Q6H PRN IV NAUSEA AND/OR VOMITING; Start 12/08 at 17:30 Acetaminophen (Tylenol Tab) 650 mg Q6H PRN PO PAIN LEVEL 1-3 OR FEVER; Start 12/01/16 at 17:30 Acetaminophen/ Hydrocodone Bitart ([place] (5/325)) 1 tab Q6H PRN PO MODERATE PAIN LEVEL 4-6; Start 12/01/16 at 17:30 Morphine Sulfate (morphine) 2 mg Q4H PRN IV SEVERE PAIN LEVEL 7-10 Last administered on 12/01/16t 20:12; Admin Dose 2 MG; Start 12/01/16 at 17:30 Docusate Sodium (Colace) 100 mg Q12H PRN PO CONSTIPATION; Start 12/01/16 at 17 :30 Zolpidem Tartrate (Ambien) 5 mg QHS PRN PO SLEEP; Start 12/01/16 at 17:30 Enoxaparin Sodium (Lovenox) 40 mg DAILY SC Last administered on 12/02/16 09: 03; Admin Dose 40 MG; Start 12/02/16 at 09:00 Methocarbamol (Robaxin) 750 mg BID PRN PO MUSCLE SPASMS; Start 12/01/16 at 17: 30 Salmeterol Xinafoate/ Fluticasone (Advair 250/50 Diskus) 1 inh BID INH Last administered on 12/02/16 08:58; Admin Dose 1 INH; Start 12/01/16 at 21:00 Metoprolol Tartrate (Lopressor) 50 mg BID PO Last administered on 12/02/16 08 :58; Admin Dose 50 MG; Start 12/01/16 at 21:00 Lorazepam (Ativan) 1 mg Q3H PRN IV ANXIETY Last administered on 12/02/16 03: 56; Admin Dose 1 MG; Start 12/01/16 at 21:30 Furosemide (Lasix) 40 mg DAILY IV Last administered on 12/02/16 14:04; Admin Dose 40 MG; Start 12/02/16 at 13:30 TRUDI BARBOUR Dec 02, 2016 18:42
--- NOTE | 2016-12-02 19:24 | QN ---
Documentation Comment [id number] RENAL A/P FEDERICO LOW EF HYPERKALEMIA ETOH ABUSE DEHYDRATION PLAN PER ORDER ALEN QUINTANILLA MD Dec 02, 2016 19:24
[2016-12-02] MEDS: METOPROLOL (XL) 50 MG TAB PO SCH (20:25)
[2016-12-02] MEDS: SOD CHLORIDE 0.9% 1,000 ML IV SCH (20:25)
[2016-12-02] MEDS: AMIODARONE 200 MG TAB PO SCH (20:26)
[2016-12-02] MEDS: ENOXAPARIN 60 MG/0.6 ML SYG SC SCH (20:27)
[2016-12-02] MEDS: DIGOXIN 500 MCG INJ IV SCH (20:27)
[2016-12-02] MEDS ORDERED: METOPROLOL 50 MG TAB PO SCH (21:00)
[2016-12-02 23:19] LABS: ADD UMIC YES; UR ASCORBIC ACID NEGATIVE (NEGATIVE); UR BACTERIA FEW /HPF (NONE SEEN); UR BILIRUBIN (Dip) NEGATIVE (NEGATIVE); UR BLOOD (Dip) 1+ mg/dL (NEGATIVE); UR CLARITY SLIGHTLY CLOUDY (CLEAR); UR COLOR YELLOW (YELLOW); UR GLUCOSE (Dip) NEGATIVE (NEGATIVE); UR KETONES (Dip) NEGATIVE (NEGATIVE); UR LEUKOCYTE ESTERASE (Dip) NEGATIVE Leu/ul (NEGATIVE); UR MUCUS FEW /HPF (NONE SEEN); UR NITRITE (Dip) NEGATIVE (NEGATIVE); UR RBC 0 /HPF (0-5); UR SPECIFIC GRAVITY (Dip) 1.008 (1.003-1.030); UR TOTAL PROTEIN (Dip) 1+ mg/dl (NEGATIVE); UR UROBILINOGEN (Dip) NEGATIVE (NEGATIVE)
[2016-12-02 23:28] LABS: PROTEIN/CREAT RATIO 0.72 RATIO
[2016-12-03] VITALS (22 sets, daily range): BP systolic 94–142; BP diastolic 52–110; PULSE 95–125; RESP 18–40
[2016-12-03] MEDS: LORAZEPAM 2 MG INJ IV PRN (00:56)
[2016-12-03] MEDS: DIGOXIN 500 MCG INJ IV SCH ×2 (02:12→08:32)
--- NOTE | 2016-12-03 08:28 | CONS ---
DATE OF ADMISSION: 12/01/2016 DATE OF CONSULTATION: 12/02/2016 REASON FOR CONSULTATION: Atrial flutter with rapid ventricular response, as well as congestive heart failure. REQUESTING PHYSICIAN: Dr. Rock De La Garza from the hospitalist service. HISTORY OF PRESENT ILLNESS: Mr. Thomas is a 51-year-old male with a history of cardiomyopathy with severely depressed left ventricular ejection fraction, lasting only approximately 20% to 25% by echo 10/2016, hypertension, ETOH and generalized substance abuse, recurrent episodes of chest pain with prior negative troponins who presented with complaints of substernal chest pain, palpitations. Upon arrival in the emergency department, temperature 98.1, blood pressure 129/90, pulse 134, respiratory rate 20, saturating 99%. The patient's labs revealed a white count of 6.0, hemoglobin 14.7, platelet count of 419. Sodium 139, potassium 4.3, creatinine 1.0, BUN 17, AST 42, ALT 56. Troponin negative. BNP of 9140. ABG showed pH of 7.293, a PaO2 of 79, a pCO2 of 43. Patient's chest x-ray revealed cardiomegaly and clear lungs. Patient's electrocardiogram revealed atrial flutter with rapid ventricular response, a rate of 134 with normal axis, normal intervals, with nonspecific ST-T abnormalities diffusely. Patient subsequently admitted to the floor and since admitted to the floor, has been placed on metoprolol with some improvement in heart rates and Lovenox at this time. Patient denies chest pains, chills, palpitations. The patient's first labs from today that are significant change from the day prior with possibility of acute renal failure and hyperkalemia. That was then repeated with sodium being normal, potassium being normal, and, therefore, I believe that these labs may all be in error - different patient. The patient is very lethargic at this time, but does arouse. PAST MEDICAL HISTORY: As above in HPI. MEDICATIONS CURRENTLY IN HOSPITAL: 1. Metoprolol. 2. Lasix 40 mg IV daily. 3. Lovenox. 4. Xopenex. 5. Atrovent. 6. Ativan. 7. Advair. ALLERGIES: NO KNOWN DRUG ALLERGIES. SOCIAL HISTORY: Positive tobacco and substance abuse. Social ETOH. FAMILY HISTORY: No history of sudden cardiac or early CAD. REVIEW OF SYSTEMS: As above in HPI. CONSTITUTIONAL: No fevers, chills. PULMONARY: Shortness of breath. CARDIOVASCULAR: Palpitations, chest pain, shortness of breath. GASTROINTESTINAL: No vomiting. GENITOURINARY: No hematuria. MUSCULOSKELETAL: Degenerative joint disease. PSYCHIATRIC: The patient denies depression. NEUROLOGIC: No documented history of CVA. PHYSICAL EXAMINATION: VITAL SIGNS: Temperature of 97.6, blood pressure most recently 99/68, pulse low 100s and atrial flutter, saturating 98% on 3 liters. GENERAL: The patient is sleeping but arousable. NECK: JVP approximately 9 cm to 10 cm water. CHEST: Decreased breath sounds at bases bilaterally. HEART: Tachycardic, irregularly irregular rhythm, I/ systolic murmur, laterally displaced PMI. ABDOMEN: Positive bowel sounds, soft. EXTREMITIES: No pitting edema, 1+ pulses bilaterally, posterior tibial. LABORATORY DATA: As above in HPI, with most recent from today, potassium 4.8 and the remainder of the labs I am not sure if that is true of this patient. White blood cell count 18.0, hemoglobin 14.9, platelet count of 379. IMAGING STUDIES: As above in HPI. No further imaging studies for my review at this time. ELECTROCARDIOGRAM: As above in HPI. No further electrograms for my review at this time. IMPRESSION: 1. Atrial flutter with rapid ventricular response, possibly new onset. 2. Cardiomyopathy with severely depressed left ventricular ejection fraction approximately 20% to 25% by echo 10/2016. 3. Hypertension. 4. Chest pain in the setting of atrial fibrillation with rapid ventricular response. 5. History of alcohol and substance abuse. 6. Abnormal electrocardiogram, assess for acute coronary syndrome. 7. Possible acute renal failure by labs. RECOMMENDATIONS: 1. At this time, would maintain the patient on telemetry monitoring to follow rhythm and rate control closely. 2. Will give patient IV push digoxin along with beta serina to improve overall heart rate control and improve contractility in the setting of severe cardiomyopathy. 3. We will initiate the patient on systemic anticoagulation doses for Lovenox. 4. Will change the patient's metoprolol to Toprol-XL given cardiomyopathy and increased efficacy with this formulation. 5. Will hold on initiating HEATHER inhibitor given possible acute renal failure. We will place the patient on low dose hydralazine afterload reduction as tolerated. 6. Will additionally initiate the patient on amiodarone in an attempt to return patient to sinus rhythm, and if patient continues to remain in atrial flutter, will consider a transesophageal echo with DC cardioversion to return the patient to sinus rhythm and improve cardiac care in the setting of severe cardiomyopathy. Thank you for allowing me to take part in the care of this patient. I will continue to follow along very closely with you. Recommendations will be made as the patient progresses to his inpatient hospital clinical course. Dictated By: RAFAEL GUPTA/JOSÉ ANTONIO Conf#: [id number] DID#: [id number] CC: ROCK DE LA GARZA MD; JONATAN FOSTER MD;*EndCC* MTDD
[2016-12-03 08:48] LABS: BASOPHIL # 0.1 10^3/ul (0.0-0.1); BASOPHILS % 0.3 % (0.0-2.0); EOSINOPHILS % 0.3 % (0.0-7.0); HEMATOCRIT 39.5 % (42.0-52.0); HEMOGLOBIN 12.8 g/dl (14.0-18.0); LYMPHOCYTES % 19.6 % (15.0-51.0); MEAN CORPUSCULAR HEMOGLOBIN 30.4 pg (29.0-33.0); MEAN CORPUSCULAR HGB CONC 32.4 g/dl (32.0-37.0); MEAN CORPUSCULAR VOLUME 93.8 fl (82.0-101.0); MEAN PLATELET VOLUME 9.8 fl (7.4-10.4); MONOCYTE # 0.4 10^3/ul (0.3-0.9); MONOCYTES % 2.5 % (0.0-11.0); NEUTROPHIL # 11.6 10^3/ul (1.6-7.5); NEUTROPHILS % 76.5 % (39.0-77.0); NUCLEATED RED BLOOD CELLS% 0.1 /100WBC (0.0-0.0); PLATELET COUNT 293 10^3/UL (140-415); RED BLOOD COUNT 4.21 10^6/ul (4.70-6.10); RED CELL DISTRIBUTION WIDTH 13.9 % (11.5-14.5); WHITE BLOOD COUNT 15.2 10^3/ul (4.8-10.8)
[2016-12-03 09:23] LABS: ALBUMIN/GLOBULIN RATIO 0.85; BILIRUBIN,INDIRECT 0.4 mg/dl (0-1.1); BILIRUBIN,TOTAL 0.4 mg/dl (0.2-1.3); CALCIUM 8.5 mg/dl (8.4-10.2); CREATININE 1.63 mg/dl (0.61-1.24); MAGNESIUM 2.2 mg/dl (1.7-2.5); PHOSPHORUS 4.4 mg/dl (2.5-4.9); POTASSIUM 3.7 mmol/L (3.5-5.1); TOTAL PROTEIN 6.5 g/dl (6.1-8.1)
[2016-12-03] MEDS: MULTIVITAMINS 10 ML, THIAMINE 100 MG, FOLIC ACID 1 MG in SOD CHLORIDE 0.9% 1,000 ML IVPB SCH (10:14)
[2016-12-03] MEDS: AMIODARONE 200 MG TAB PO SCH ×2 (10:17→13:26)
[2016-12-03] MEDS: METOPROLOL (XL) 50 MG TAB PO SCH ×2 (10:17→21:04)
[2016-12-03] MEDS: SALMETEROL/FLUTICASONE 250/50 INHA INH SCH ×2 (10:18→21:45)
[2016-12-03] MEDS: FUROSEMIDE 40 MG INJ IV SCH ×2 (10:18→17:58)
[2016-12-03 11:40] LABS: HAAIG REFLEX REFLEX FILED
[2016-12-03 12:20] LABS: ALBUMIN 2.9 g/dl (3.3-4.9); ALKALINE PHOSPHATASE 164 IU/L (42-121); BILIRUBIN,INDIRECT 0.4 mg/dl (0-1.1); BILIRUBIN,TOTAL 0.4 mg/dl (0.2-1.3); TOTAL PROTEIN 6.1 g/dl (6.1-8.1)
[2016-12-03 13:04] LABS: ALANINE AMINOTRANSFERASE 4116 IU/L (13-69); ASPARTATE AMINO TRANSFERASE 6751 IU/L (15-46)
[2016-12-03 13:10] LABS: HEPATITIS B CORE ANTIBODY REACTIVE (NEGATIVE)
--- NOTE | 2016-12-03 14:42 | PN ---
Date/Time of Note Date/Time of Note DATE: 12/03/16 TIME: 14:40 Assessment/Plan VTE Prophylaxis VTE Prophylaxis Intervention: SCD's Lines/Catheters IV [facility]ter Type (from [facility]): Peripheral IV Assessment/Plan Chief Complaint/Hosp Course 1. Acute respiratory distress secondary to CHF exacerbation and A. fib/flutter with RVR-heart rate still elevated Transfer to ICU Continue diuresis, increase Lasix to 40 IV twice daily Continue Toprol-XL Cardiology consultation appreciated Follow-up on stat chest x-ray 2. Acute hepatitis Etiology unclear at this time, possibly secondary to poor hemodynamics Obtain ultrasound of the liver Viral hepatitis panel is negative Obtain GI consultation 3. Acute kidney injury with hyperkalemia etiology may be cardiorenal-improved Hyperkalemia resolved Continue Lasix IV Nephrology consultation appreciated Status post Kayexalate p.o. x 1 DC'd Aldactone 4. Leukocytosis-reactive No evidence of infection at this time UA is normal 5. History of substance abuse Prophylaxis: SCDs Problems: Subjective 24 Hr Interval Summary Respiratory: shortness of breath Exam/Review of Systems Vital Signs Vitals Vital Signs Date Time Temp Pulse Resp B/P Pulse Ox O2 Delivery O2 Flow Rate FiO2 12/03/16 08:30 119 12/03/16 07:25 3.0 12/03/16 04:17 98.2 19 116/66 99 12/02/16 20:30 Nasal Cannula Intake and Output 12/02/16 12/02/16 12/03/16 15:00 23:00 07:00 Intake Total 1160 ml 580 ml Output Total 1250 ml Balance 1160 ml -670 ml Exam Constitutional: alert, oriented Respiratory: clear to auscultation Cardiovascular: regular rate and rhythm Gastrointestinal: soft, No distended Musculoskeletal: nl extremities to inspection Results Result Diagram: 12/03/1628 12/03/1628 Results 24 hrs Laboratory Tests Test 12/02/16 16:13 12/02/16 22:00 12/03/16 07:28 12/03/16 13:17 Potassium Level 4.8 3.7 Urine Color YELLOW Urine Clarity SLIGHTLY CLOUDY A Urine pH 5.0 Urine Specific [place] 1.008 Urine Ketones NEGATIVE Urine Nitrite NEGATIVE Urine Bilirubin NEGATIVE Urine Urobilinogen NEGATIVE Urine Leukocyte Esterase NEGATIVE Urine Microscopic RBC 0 Urine Microscopic WBC 1 Urine Bacteria FEW A Urine Mucus FEW A Urine Hemoglobin 1+ H Urine Random Creatinine 62.41 Urine Random Sodium 14 L Urine Protein/Creatinine Ratio 0.72 Urine Glucose NEGATIVE Urine Total Protein 45.0 H White Blood Count 15.2 H Red Blood Count 4.21 L Hemoglobin 12.8 L Hematocrit 39.5 L Mean Corpuscular Volume 93.8 Mean Corpuscular Hemoglobin 30.4 Mean Corpuscular Hemoglobin Concent 32.4 Red Cell Distribution Width 13.9 Platelet Count 293 # Mean Platelet Volume 9.8 Neutrophils % 76.5 Lymphocytes % 19.6 Monocytes % 2.5 Eosinophils % 0.3 Basophils % 0.3 Nucleated Red Blood Cells % 0.1 H Neutrophils # 11.6 H Lymphocytes # 3.0 H Monocytes # 0.4 Eosinophils # 0.0 Basophils # 0.1 Nucleated Red Blood Cells # 0.0 Sodium Level 133 L Chloride Level 101 Carbon Dioxide Level 26 Anion Gap 10 # Blood Urea Nitrogen 55 H Creatinine 1.63 H Glucose Level 84 # Calcium Level 8.5 Phosphorus Level 4.4 # Magnesium Level 2.2 Total Bilirubin 0.4 Direct Bilirubin 0.00 Indirect Bilirubin 0.4 Aspartate Amino Transf (AST/SGOT) 6751 H Alanine Aminotransferase (ALT/SGPT) 4116 H Alkaline Phosphatase 164 H Total Protein 6.1 Albumin 2.9 L Globulin 3.50 H Albumin/Globulin Ratio 0.85 Hepatitis B Surface Antigen NEGATIVE Hepatitis B Core Total Antibody REACTIVE H Hepatitis C Antibody NEGATIVE Lactic Acid Level 2.6 *H Medications Medications Current Medications Ondansetron HCl (Zofran Inj) 4 mg Q6H PRN IV NAUSEA AND/OR VOMITING; Start 12/08 at 17:30 Acetaminophen (Tylenol Tab) 650 mg Q6H PRN PO PAIN LEVEL 1-3 OR FEVER; Start 12/01/16 at 17:30 Acetaminophen/ Hydrocodone Bitart ([place] (5/325)) 1 tab Q6H PRN PO MODERATE PAIN LEVEL 4-6; Start 12/01/16 at 17:30 Morphine Sulfate (morphine) 2 mg Q4H PRN IV SEVERE PAIN LEVEL 7-10 Last administered on 12/01/16t 20:12; Admin Dose 2 MG; Start 12/01/16 at 17:30 Docusate Sodium (Colace) 100 mg Q12H PRN PO CONSTIPATION; Start 12/01/16 at 17 :30 Zolpidem Tartrate (Ambien) 5 mg QHS PRN PO SLEEP; Start 12/01/16 at 17:30 Methocarbamol (Robaxin) 750 mg BID PRN PO MUSCLE SPASMS; Start 12/01/16 at 17: 30 Salmeterol Xinafoate/ Fluticasone (Advair 250/50 Diskus) 1 inh BID INH Last administered on 12/03/16 10:18; Admin Dose 1 INH; Start 12/01/16 at 21:00 Lorazepam (Ativan) 1 mg Q3H PRN IV ANXIETY Last administered on 12/03/16 00: 56; Admin Dose 1 MG; Start 12/01/16 at 21:30 Furosemide (Lasix) 40 mg DAILY IV Last administered on 12/03/16 10:18; Admin Dose 40 MG; Start 12/02/16 at 13:30 Metoprolol Succinate (Toprol Xl) 50 mg BID PO Last administered on 12/03/16 10:17; Admin Dose 50 MG; Start 12/02/16 at 21:00 Hydralazine HCl (Apresoline) 10 mg Q8 PO Last administered on 12/03/16 13:26 ; Admin Dose 10 MG; Start 12/02/16 at 22:00 Amiodarone HCl (Cordarone) 200 mg TID PO Last administered on 12/03/16 13:26 ; Admin Dose 200 MG; Start 12/02/16 at 21:00 Enoxaparin Sodium 60 mg 60 mg Q24H SC Last administered on 12/02/16 20:27; Admin Dose 60 MG; Start 12/02/16 at 20:00 Sodium Chloride 1,000 ml @ 30 mls/hr Q24H IV Last administered on 12/02/16 20:25; Admin Dose 30 MLS/HR; Start 12/02/16 at 19:30 Multivitamins/ Thiamine HCl/ Folic Acid/Sodium Chloride (Mvi Adult/ Vitamin B1/ Folic Acid/NS) 1,011.2 ml @ 40 mls/hr DAILY@09 IVPB Last administered on 12/03 10:14; Admin Dose 40 MLS/HR; Start 12/03/16 at 09:00 TRUDI BARBOUR Dec 03, 2016 14:42
[2016-12-03] MEDS: NICOTINE (21 MG/24 HR) PATCH TRANSDERM SCH (15:26)
--- NOTE | 2016-12-03 15:38 | RADRPT ---
PROCEDURE: US Abdomen. CLINICAL INDICATION: Evaluate liver. Abdominal pain. TECHNIQUE: Multiple real-time images were acquired of the patient's abdomen and retroperitoneum ut ilizing a high resolution transducer. COMPARISON: None FINDINGS: Increased echogenicity of the liver suggesting fatty infiltration, limiting evaluation focal lesions . The liver is slightly enlarged measuring 17 cm in length. The portal vein is patent with normal d irection of flow. No intrahepatic biliary dilatation is seen. No gallstones are identified within the gallbladder. There is no pericholecystic fluid . Nonspecifi c wall thickening of the gallbladder with a diameter of 4.6 mm. The common duct measures 3.9 mm in maximal dimension. The visualized portions of the pancreas are unremarkable. The right liver is normal in size and echogenicity and measures 9.4 cm in length without evidence of hydronephrosis. IMPRESSION: Slightly enlarged liver with fatty infiltration. Nonspecific wall thickening of the gallbladder with a diameter of 4.6 mm. No gallstones. Common duct is not normal limits. RPTAT: GG .Brittany Ortiz MD, MD Date Time Electronically viewed and signed by .Brittany Ortiz MD, MD on 12/03/2016 15:38 .G/
--- NOTE | 2016-12-03 16:32 | RADRPT ---
PROCEDURE: XR Chest. CLINICAL INDICATION: CHF TECHNIQUE: AP view of the chest were obtained. COMPARISON: None. FINDINGS: Cardiomegaly. The lungs are clear. No signs of pleural fluid or pneumothorax are seen. The osseous s tructures and soft tissues are grossly unremarkable. IMPRESSION: Stable cardiomegaly. No evidence for active cardiopulmonary disease. RPTAT: QQ .Brittany Ortiz MD, MD Date Time Electronically viewed and signed by .Brittany Ortiz MD, on 12/03/2016 16:32 .G/
--- NOTE | 2016-12-03 17:47 | CONS ---
Date/Time of Note Date/Time of Note DATE: 12/03/16 TIME: 17:08 Assessment/Plan Assessment/Plan Chief Complaint/Hosp Course Assessment: Acute hepatitis ischemic vs autoimmune vs alcoholic Aflutter with RVR CHF EF 20% HTN Leukocytosis- reactive Plan: Pt being transferred to ICU Will check additional labs for underlying hepatitis etiology Will make recommendations based on lab results Continue current regimen Patient seen in collaboration with Dr. Cook Chief Complaint/Reason for Visit: Acute hepatitis History of Present Illness: 51 year old male with history of cardiomyopathy with ejection fraction, 20% to 25% by echo 10/2016. Significant history of ETOH, worse in the past two years, history of substance abuse including IV drug use in his early 20s. Patient has hx of Hep C, although he was checked and is Hep C negative, as well as, hep b surface Ag negative. Hep A is pending and Hep B core AB is positive, a Upon admission AST 42 ALT 56 WBC 16. Now AST 6751 ALT 4116 WBC 15.2 INR 1.09 and Lactic acid 2.6. He denies abd pain, nausea vomiting, change in bowel habits, or change in color of stool. Abdominal u/s revealed slightly enlarged liver (17cm) with fatty infiltrates, and non-specific thickening of gallbladder. Past Medical History: HTN CHF EF 20% History of substance abuse Allergies: No know drug allergies Family History: Heart disease Social History: Increased ETOH use in the past two years. Currently drinks 3-4 beers to 1/2 pint of alcohol a few times per week currently smokes marijuana History of IV drug use as a young adult Problems: Consultation Date/Type/Reason Admit Date/Time December 01, 2016 Date of Consultation: Dec 03, 2016 Reason for Consultation Acute hepatitis Constitutional: no complaints Eyes: no complaints ENT: no complaints Respiratory: shortness of breath Cardiovascular: no complaints Gastrointestinal: no complaints Genitourinary: no complaints Musculoskeletal: no complaints Skin: no complaints Neurologic: no complaints Lymphatic: no complaints Psychological: nl mood/affect, no complaints Immunologic: no complaints Past Surgical History Past Surgical Hx: no surgical history Social History Alcohol Use: heavy Smoking Status: Current every day smoker Drug Use: cocaine Exam/Review of Systems Vital Signs Vitals Vital Signs Date Time Temp Pulse Resp B/P Pulse Ox O2 Delivery O2 Flow Rate FiO2 12/03/16 16:13 98.5 122 18 141/100 100 12/03/16 07:25 3.0 12/02/16 20:30 Nasal Cannula Intake and Output 12/02/16 12/02/16 12/03/16 15:00 23:00 07:00 Intake Total 1160 ml 580 ml Output Total 1250 ml Balance 1160 ml -670 ml Results Result Diagram: 12/03/16 0728 12/03/16 0728 Results 24 hrs Laboratory Tests Test 12/02/16 22:00 12/03/16 07:28 12/03/16 13:17 12/03/16 13:37 Urine Color YELLOW Urine Clarity SLIGHTLY CLOUDY A Urine pH 5.0 Urine Specific [place] 1.008 Urine Ketones NEGATIVE Urine Nitrite NEGATIVE Urine Bilirubin NEGATIVE Urine Urobilinogen NEGATIVE Urine Leukocyte Esterase NEGATIVE Urine Microscopic RBC 0 Urine Microscopic WBC 1 Urine Bacteria FEW A Urine Mucus FEW A Urine Hemoglobin 1+ H Urine Random Creatinine 62.41 Urine Random Sodium 14 L Urine Protein/Creatinine Ratio 0.72 Urine Glucose NEGATIVE Urine Total Protein 45.0 H White Blood Count 15.2 H Red Blood Count 4.21 L Hemoglobin 12.8 L Hematocrit 39.5 L Mean Corpuscular Volume 93.8 Mean Corpuscular Hemoglobin 30.4 Mean Corpuscular Hemoglobin Concent 32.4 Red Cell Distribution Width 13.9 Platelet Count 293 # Mean Platelet Volume 9.8 Neutrophils % 76.5 Lymphocytes % 19.6 Monocytes % 2.5 Eosinophils % 0.3 Basophils % 0.3 Nucleated Red Blood Cells % 0.1 H Neutrophils # 11.6 H Lymphocytes # 3.0 H Monocytes # 0.4 Eosinophils # 0.0 Basophils # 0.1 Nucleated Red Blood Cells # 0.0 Sodium Level 133 L Potassium Level 3.7 Chloride Level 101 Carbon Dioxide Level 26 Anion Gap 10 # Blood Urea Nitrogen 55 H Creatinine 1.63 H Glucose Level 84 # Calcium Level 8.5 Phosphorus Level 4.4 # Magnesium Level 2.2 Total Bilirubin 0.4 Direct Bilirubin 0.00 Indirect Bilirubin 0.4 Aspartate Amino Transf (AST/SGOT) 6751 H Alanine Aminotransferase (ALT/SGPT) 4116 H Alkaline Phosphatase 164 H Total Protein 6.1 Albumin 2.9 L Globulin 3.50 H Albumin/Globulin Ratio 0.85 Hepatitis B Surface Antigen NEGATIVE Hepatitis B Core Total Antibody REACTIVE H Hepatitis C Antibody NEGATIVE Lactic Acid Level 2.6 *H Acetaminophen Level < 10.0 L Medications Medications Current Medications Ondansetron HCl (Zofran Inj) 4 mg Q6H PRN IV NAUSEA AND/OR VOMITING; Start 12/08 at 17:30 Acetaminophen (Tylenol Tab) 650 mg Q6H PRN PO PAIN LEVEL 1-3 OR FEVER; Start 12/01/16 at 17:30 Acetaminophen/ Hydrocodone Bitart ([place] (5/325)) 1 tab Q6H PRN PO MODERATE PAIN LEVEL 4-6; Start 12/01/16 at 17:30 Morphine Sulfate (morphine) 2 mg Q4H PRN IV SEVERE PAIN LEVEL 7-10 Last administered on 12/01/16 20:12; Admin Dose 2 MG; Start 12/01/16 at 17:30 Docusate Sodium (Colace) 100 mg Q12H PRN PO CONSTIPATION; Start 12/01/16 at 17 :30 Zolpidem Tartrate (Ambien) 5 mg QHS PRN PO SLEEP; Start 12/01/16 at 17:30 Methocarbamol (Robaxin) 750 mg BID PRN PO MUSCLE SPASMS; Start 12/01/16 at 17: 30 Salmeterol Xinafoate/ Fluticasone (Advair 250/50 Diskus) 1 inh BID INH Last administered on 12/03/16 10:18; Admin Dose 1 INH; Start 12/01/16 at 21:00 Lorazepam (Ativan) 1 mg Q3H PRN IV ANXIETY Last administered on 12/03/16 00: 56; Admin Dose 1 MG; Start 12/01/16 at 21:30 Metoprolol Succinate (Toprol Xl) 50 mg BID PO Last administered on 12/03/16 10:17; Admin Dose 50 MG; Start 12/02/16 at 21:00 Hydralazine HCl (Apresoline) 10 mg Q8 PO Last administered on 12/03/16 13:26 ; Admin Dose 10 MG; Start 12/02/16 at 22:00 Amiodarone HCl (Cordarone) 200 mg TID PO Last administered on 12/03/16 13:26 ; Admin Dose 200 MG; Start 12/02/16 at 21:00 Enoxaparin Sodium 60 mg 60 mg Q24H SC Last administered on 12/02/16 20:27; Admin Dose 60 MG; Start 12/02/16 at 20:00 Sodium Chloride 1,000 ml @ 30 mls/hr Q24H IV Last administered on 12/02/16 20:25; Admin Dose 30 MLS/HR; Start 12/02/16 at 19:30 Multivitamins/ Thiamine HCl/ Folic Acid/Sodium Chloride (Mvi Adult/ Vitamin B1/ Folic Acid/NS) 1,011.2 ml @ 40 mls/hr DAILY@09 IVPB Last administered on 12/03 10:14; Admin Dose 40 MLS/HR; Start 12/03/16 at 09:00 Nicotine (Nicoderm 21 Mg/ 24hr) 1 patch DAILY TRANSDERM Last administered on 15:26; Admin Dose 1 PATCH; Start 12/03/16 at 15:00 ABRIL REDDING Dec 03, 2016 17:21
--- NOTE | 2016-12-03 18:18 | CONS ---
Date/Time of Note Date/Time of Note DATE: 12/03/16 TIME: 18:16 Assessment/Plan Assessment/Plan Chief Complaint/Hosp Course [place] BETTER SHOCK LIVER HEP B ETOH ABUSE S/P HYPERKALEMIA LOW EF PLAN CK LABS Problems: Consultation Date/Type/Reason Admit Date/Time Dec 01, 2016 at 14:16 Initial Consult Date 12/03/16 Type of Consultation: RENAL 24 HR Interval Summary Constitutional: No diaphoresis, No disoriented Exam/Review of Systems Vital Signs Vitals Vital Signs Date Time Temp Pulse Resp B/P Pulse Ox O2 Delivery O2 Flow Rate FiO2 12/03/16 16:13 98.5 122 18 141/100 100 12/03/16 08:15 Nasal Cannula 4.0 Intake and Output 12/02/16 12/02/16 12/03/16 15:00 23:00 07:00 Intake Total 1160 ml 580 ml Output Total 1250 ml Balance 1160 ml -670 ml Exam Respiratory: diminished breath sounds Cardiovascular: regular rate and rhythm Gastrointestinal: bowel sounds (+), soft Extremities: edema (+) Results Result Diagram: 12/03/16 0728 12/03/16 0728 Results 24 hrs Laboratory Tests Test 12/02/16 22:00 12/03/16 07:28 12/03/16 13:17 12/03/16 13:37 Urine Color YELLOW Urine Clarity SLIGHTLY CLOUDY A Urine pH 5.0 Urine Specific [place] 1.008 Urine Ketones NEGATIVE Urine Nitrite NEGATIVE Urine Bilirubin NEGATIVE Urine Urobilinogen NEGATIVE Urine Leukocyte Esterase NEGATIVE Urine Microscopic RBC 0 Urine Microscopic WBC 1 Urine Bacteria FEW A Urine Mucus FEW A Urine Hemoglobin 1+ H Urine Random Creatinine 62.41 Urine Random Sodium 14 L Urine Protein/Creatinine Ratio 0.72 Urine Glucose NEGATIVE Urine Total Protein 45.0 H White Blood Count 15.2 H Red Blood Count 4.21 L Hemoglobin 12.8 L Hematocrit 39.5 L Mean Corpuscular Volume 93.8 Mean Corpuscular Hemoglobin 30.4 Mean Corpuscular Hemoglobin Concent 32.4 Red Cell Distribution Width 13.9 Platelet Count 293 # Mean Platelet Volume 9.8 Neutrophils % 76.5 Lymphocytes % 19.6 Monocytes % 2.5 Eosinophils % 0.3 Basophils % 0.3 Nucleated Red Blood Cells % 0.1 H Neutrophils # 11.6 H Lymphocytes # 3.0 H Monocytes # 0.4 Eosinophils # 0.0 Basophils # 0.1 Nucleated Red Blood Cells # 0.0 Sodium Level 133 L Potassium Level 3.7 Chloride Level 101 Carbon Dioxide Level 26 Anion Gap 10 # Blood Urea Nitrogen 55 H Creatinine 1.63 H Glucose Level 84 # Calcium Level 8.5 Phosphorus Level 4.4 # Magnesium Level 2.2 Total Bilirubin 0.4 Direct Bilirubin 0.00 Indirect Bilirubin 0.4 Aspartate Amino Transf (AST/SGOT) 6751 H Alanine Aminotransferase (ALT/SGPT) 4116 H Alkaline Phosphatase 164 H Total Protein 6.1 Albumin 2.9 L Globulin 3.50 H Albumin/Globulin Ratio 0.85 Hepatitis B Surface Antigen NEGATIVE Hepatitis B Core Total Antibody REACTIVE H Hepatitis C Antibody NEGATIVE Lactic Acid Level 2.6 *H Acetaminophen Level < 10.0 L Medications Medications Current Medications Ondansetron HCl (Zofran Inj) 4 mg Q6H PRN IV NAUSEA AND/OR VOMITING; Start 12/08 at 17:30 Acetaminophen (Tylenol Tab) 650 mg Q6H PRN PO PAIN LEVEL 1-3 OR FEVER; Start 12/01/16 at 17:30 Acetaminophen/ Hydrocodone Bitart ([place] (5/325)) 1 tab Q6H PRN PO MODERATE PAIN LEVEL 4-6; Start 12/01/16 at 17:30 Morphine Sulfate (morphine) 2 mg Q4H PRN IV SEVERE PAIN LEVEL 7-10 Last administered on 12/01/16 20:12; Admin Dose 2 MG; Start 12/01/16 at 17:30 Docusate Sodium (Colace) 100 mg Q12H PRN PO CONSTIPATION; Start 12/01/16 at 17 :30 Zolpidem Tartrate (Ambien) 5 mg QHS PRN PO SLEEP; Start 12/01/16 at 17:30 Methocarbamol (Robaxin) 750 mg BID PRN PO MUSCLE SPASMS; Start 12/01/16 at 17: 30 Salmeterol Xinafoate/ Fluticasone (Advair 250/50 Diskus) 1 inh BID INH Last administered on 12/03/16 10:18; Admin Dose 1 INH; Start 12/01/16 at 21:00 Lorazepam (Ativan) 1 mg Q3H PRN IV ANXIETY Last administered on 12/03/16 00: 56; Admin Dose 1 MG; Start 12/01/16 at 21:30 Metoprolol Succinate (Toprol Xl) 50 mg BID PO Last administered on 12/03/16 10:17; Admin Dose 50 MG; Start 12/02/16 at 21:00 Hydralazine HCl (Apresoline) 10 mg Q8 PO Last administered on 12/03/16 13:26 ; Admin Dose 10 MG; Start 12/02/16 at 22:00 Amiodarone HCl (Cordarone) 200 mg TID PO Last administered on 12/03/16 13:26 ; Admin Dose 200 MG; Start 12/02/16 at 21:00 Enoxaparin Sodium 60 mg 60 mg Q24H SC Last administered on 12/02/16 20:27; Admin Dose 60 MG; Start 12/02/16 at 20:00 Sodium Chloride 1,000 ml @ 30 mls/hr Q24H IV Last administered on 12/02/16 20:25; Admin Dose 30 MLS/HR; Start 12/02/16 at 19:30 Multivitamins/ Thiamine HCl/ Folic Acid/Sodium Chloride (Mvi Adult/ Vitamin B1/ Folic Acid/NS) 1,011.2 ml @ 40 mls/hr DAILY@09 IVPB Last administered on 12/03 10:14; Admin Dose 40 MLS/HR; Start 12/03/16 at 09:00 Nicotine (Nicoderm 21 Mg/ 24hr) 1 patch DAILY TRANSDERM Last administered on 15:26; Admin Dose 1 PATCH; Start 12/03/16 at 15:00 ALEN QUINTANILLA MD Dec 03, 2016 18:18
[2016-12-03] MEDS: SOD CHLORIDE 0.9% 1,000 ML IV SCH (19:30)
[2016-12-03] MEDS: ENOXAPARIN 60 MG/0.6 ML SYG SC SCH (20:15)
--- NOTE | 2016-12-03 20:28 | CONS ---
Date/Time of Note Date/Time of Note DATE: 12/03/16 TIME: 20:22 Assessment/Plan Assessment/Plan Chief Complaint/Hosp Course IMPRESSION: 1. Atrial flutter with rapid ventricular response, possibly new onset. 2. Cardiomyopathy with severely depressed left ventricular ejection fraction approximately 20% to 25% by echo 10/2016. 3. Hypertension. 4. Chest pain in the setting of atrial fibrillation with rapid ventricular response. 5. History of alcohol and substance abuse. 6. Abnormal electrocardiogram, assess for acute coronary syndrome. 7. ARF 8. Increased LFT's/shock liver Recc: -Tele -serial ecg's -Continue Toprol and increase hydralazine afterload reduction in lieu of ACEI at this time -Hold amio given increased LFT's -Give additional digoxin IVP and may consider CHRISTINA/DCCV to improve HD's if remains in AFL -ONgoing GI and nephrology evals -Smoking cessation -Contiue lasix and follow volume status closely -Continue lovenox at this time Problems: Consultation Date/Type/Reason Admit Date/Time Dec 01, 2016 at 14:16 Initial Consult Date 12/03/16 Type of Consultation: cardiology Reason for Consultation cardiomyopthy/AFL Referring Provider: TRUDI BARBOUR Exam/Review of Systems Vital Signs Vitals Vital Signs Date Time Temp Pulse Resp B/P Pulse Ox O2 Delivery O2 Flow Rate FiO2 12/03/16 20:11 97 4.0 12/03/16 18:30 122 30 142/101 Nasal Cannula 12/03/16 18:00 98.8 Intake and Output 12/02/16 12/02/16 12/03/16 15:00 23:00 07:00 Intake Total 1160 ml 580 ml Output Total 1250 ml Balance 1160 ml -670 ml Exam Review of Systems: CONSTITUTIONAL: No fevers, chills. PULMONARY: No sob CARDIOVASCULAR: No chest pain/palpitations GASTROINTESTINAL: No nausea/vomiting. GENITOURINARY: No hematuria/dysuria. MUSCULOSKELETAL: No myagias/arthalgias. PSYCHIATRIC: The patient denies depression. NEUROLOGIC: lethargic Constitutional: other (sleeping, arousable) Psych: no complaints Head: normocephalic ENMT: mucosa pink and moist Neck: jvd (9 cm water), supple Respiratory: diminished breath sounds (at bases/B) Cardiovascular: other (regular, irregular, tachycardic) Gastrointestinal: non-tender, soft Musculoskeletal: muscle weakness (generalized) Extremities: edema (none) Neurological: lethargic Results Result Diagram: 12/03/1628 12/03/1628 Results 24 hrs Laboratory Tests Test 12/02/16 22:00 12/03/16 07:28 12/03/16 13:17 12/03/16 13:37 Urine Color YELLOW Urine Clarity SLIGHTLY CLOUDY A Urine pH 5.0 Urine Specific [place] 1.008 Urine Ketones NEGATIVE Urine Nitrite NEGATIVE Urine Bilirubin NEGATIVE Urine Urobilinogen NEGATIVE Urine Leukocyte Esterase NEGATIVE Urine Microscopic RBC 0 Urine Microscopic WBC 1 Urine Bacteria FEW A Urine Mucus FEW A Urine Hemoglobin 1+ H Urine Random Creatinine 62.41 Urine Random Sodium 14 L Urine Protein/Creatinine Ratio 0.72 Urine Glucose NEGATIVE Urine Total Protein 45.0 H White Blood Count 15.2 H Red Blood Count 4.21 L Hemoglobin 12.8 L Hematocrit 39.5 L Mean Corpuscular Volume 93.8 Mean Corpuscular Hemoglobin 30.4 Mean Corpuscular Hemoglobin Concent 32.4 Red Cell Distribution Width 13.9 Platelet Count 293 # Mean Platelet Volume 9.8 Neutrophils % 76.5 Lymphocytes % 19.6 Monocytes % 2.5 Eosinophils % 0.3 Basophils % 0.3 Nucleated Red Blood Cells % 0.1 H Neutrophils # 11.6 H Lymphocytes # 3.0 H Monocytes # 0.4 Eosinophils # 0.0 Basophils # 0.1 Nucleated Red Blood Cells # 0.0 Sodium Level 133 L Potassium Level 3.7 Chloride Level 101 Carbon Dioxide Level 26 Anion Gap 10 # Blood Urea Nitrogen 55 H Creatinine 1.63 H Glucose Level 84 # Calcium Level 8.5 Phosphorus Level 4.4 # Magnesium Level 2.2 Total Bilirubin 0.4 Direct Bilirubin 0.00 Indirect Bilirubin 0.4 Aspartate Amino Transf (AST/SGOT) 6751 H Alanine Aminotransferase (ALT/SGPT) 4116 H Alkaline Phosphatase 164 H Total Protein 6.1 Albumin 2.9 L Globulin 3.50 H Albumin/Globulin Ratio 0.85 Hepatitis B Surface Antigen NEGATIVE Hepatitis B Core Total Antibody REACTIVE H Hepatitis C Antibody NEGATIVE Lactic Acid Level 2.6 *H Acetaminophen Level < 10.0 L Test 12/03/16 19:24 Creatine Kinase 59 Creatine Kinase Index Pending Creatinine Kinase MB (Mass) Pending Troponin I Pending Medications Medications Current Medications Ondansetron HCl (Zofran Inj) 4 mg Q6H PRN IV NAUSEA AND/OR VOMITING; Start 12/08 at 17:30 Acetaminophen (Tylenol Tab) 650 mg Q6H PRN PO PAIN LEVEL 1-3 OR FEVER; Start 12/01/16 at 17:30 Acetaminophen/ Hydrocodone Bitart ([place] (5/325)) 1 tab Q6H PRN PO MODERATE PAIN LEVEL 4-6; Start 12/01/16 at 17:30 Morphine Sulfate (morphine) 2 mg Q4H PRN IV SEVERE PAIN LEVEL 7-10 Last administered on 12/01/16 20:12; Admin Dose 2 MG; Start 12/01/16 at 17:30 Docusate Sodium (Colace) 100 mg Q12H PRN PO CONSTIPATION; Start 12/01/16 at 17 :30 Zolpidem Tartrate (Ambien) 5 mg QHS PRN PO SLEEP; Start 12/01/16 at 17:30 Methocarbamol (Robaxin) 750 mg BID PRN PO MUSCLE SPASMS; Start 12/01/16 at 17: 30 Salmeterol Xinafoate/ Fluticasone (Advair 250/50 Diskus) 1 inh BID INH Last administered on 12/03/16 10:18; Admin Dose 1 INH; Start 12/01/16 at 21:00 Lorazepam (Ativan) 1 mg Q3H PRN IV ANXIETY Last administered on 12/03/16 00: 56; Admin Dose 1 MG; Start 12/01/16 at 21:30 Metoprolol Succinate (Toprol Xl) 50 mg BID PO Last administered on 12/03/16 10:17; Admin Dose 50 MG; Start 12/02/16 at 21:00 Hydralazine HCl (Apresoline) 10 mg Q8 PO Last administered on 12/03/16 13:26 ; Admin Dose 10 MG; Start 12/02/16 at 22:00 Amiodarone HCl (Cordarone) 200 mg TID PO Last administered on 12/03/16 13:26 ; Admin Dose 200 MG; Start 12/02/16 at 21:00 Enoxaparin Sodium 60 mg 60 mg Q24H SC Last administered on 12/03/16 20:15; Admin Dose 60 MG; Start 12/02/16 at 20:00 Sodium Chloride 1,000 ml @ 30 mls/hr Q24H IV Last administered on 12/02/16 20:25; Admin Dose 30 MLS/HR; Start 12/02/16 at 19:30 Multivitamins/ Thiamine HCl/ Folic Acid/Sodium Chloride (Mvi Adult/ Vitamin B1/ Folic Acid/NS) 1,011.2 ml @ 40 mls/hr DAILY@09 IVPB Last administered on 12/03 10:14; Admin Dose 40 MLS/HR; Start 12/03/16 at 09:00 Nicotine (Nicoderm 21 Mg/ 24hr) 1 patch DAILY TRANSDERM Last administered on 15:26; Admin Dose 1 PATCH; Start 12/03/16 at 15:00 RAFAEL RUVALCABA Dec 03, 2016 20:28
[2016-12-03] MEDS ORDERED: DILTIAZEM 25 MG INJ IV PRN (20:30)
[2016-12-03] MEDS ORDERED: DIGOXIN 500 MCG INJ IV ONE (20:30)
[2016-12-03 20:32] LABS: CK-MB 2.44 ng/ml (0.0-2.4)
[2016-12-03 20:33] LABS: TROPONIN-I 0.169 ng/ml (0.00-0.12)
[2016-12-03] MEDS ORDERED: DILTIAZEM 25 MG INJ IV ONE (21:00)
[2016-12-03] MEDS: ZOLPIDEM 5 MG TAB PO PRN (21:46)
[2016-12-04] VITALS (28 sets, daily range): BP systolic 96–134; BP diastolic 53–94; PULSE 84–96; RESP 5–39
[2016-12-04] MEDS: FUROSEMIDE 40 MG INJ IV SCH ×2 (06:11→18:34)
[2016-12-04 06:35] LABS: BASOPHIL # 0.1 10^3/ul (0.0-0.1); BASOPHILS % 0.4 % (0.0-2.0); EOSINOPHILS # 0.1 10^3/ul (0.0-0.5); EOSINOPHILS % 0.8 % (0.0-7.0); HEMATOCRIT 42.4 % (42.0-52.0); LYMPHOCYTES # 1.7 10^3/ul (0.8-2.9); LYMPHOCYTES % 12.3 % (15.0-51.0); MEAN CORPUSCULAR HEMOGLOBIN 30.9 pg (29.0-33.0); MEAN CORPUSCULAR VOLUME 93.6 fl (82.0-101.0); MEAN PLATELET VOLUME 9.9 fl (7.4-10.4); MONOCYTE # 0.6 10^3/ul (0.3-0.9); MONOCYTES % 3.9 % (0.0-11.0); NEUTROPHIL # 11.5 10^3/ul (1.6-7.5); NEUTROPHILS % 81.5 % (39.0-77.0); PLATELET COUNT 205 10^3/UL (140-415); RED BLOOD COUNT 4.53 10^6/ul (4.70-6.10); RED CELL DISTRIBUTION WIDTH 13.4 % (11.5-14.5); WHITE BLOOD COUNT 14.1 10^3/ul (4.8-10.8)
[2016-12-04 07:11] LABS: CALCIUM 8.4 mg/dl (8.4-10.2); CREATININE 1.01 mg/dl (0.61-1.24); MAGNESIUM 1.8 mg/dl (1.7-2.5); PHOSPHORUS 3.5 mg/dl (2.5-4.9); POTASSIUM 4.1 mmol/L (3.5-5.1)
--- NOTE | 2016-12-04 07:16 | CONS ---
DATE OF ADMISSION: 12/01/2016 DATE OF CONSULTATION: TYPE OF CONSULTATION: Nephrology. Thank you, Dr. De La Garza, for kindly asking me to see this patient in nephrology consultation. HISTORY OF PRESENT ILLNESS: The patient is a 51-year-old male who has a history of acute congestive heart failure, systolic with a history of hypertension, alcohol abuse, history of substance abuse. The patient recently discharged from this hospital with acute congestive heart failure exacerbation, diagnosis of hypertension, history of alcohol abuse, cigarette smoking, history of substance abuse, acute kidney injury. The patient now presents with short of breath and atrial flutter with rapid ventricular response. The patient noted to have electrolyte imbalance including patient has WBC 16, repeat 18, hematocrit 48.2. The patient's potassium 4.3, BUN of 35, creatinine 2.17. Potassium , Aldactone has been discontinued and patient received Lasix and Kayexalate. PAST MEDICAL HISTORY: Congestive heart failure, systolic, hypertension, a-fib and low ejection fraction 25%. ALLERGIES: NEGATIVE. FAMILY HISTORY: Diabetes, hypertension. SOCIAL HISTORY: Smoking positive, history of alcohol use positive. MEDICATION HISTORY: The patient is on: 1. Amiodarone. 2. Digoxin. 3. cordarone 4. The patient is on Lovenox. 5. The patient is on Lasix. 6. Haloperidol one dose. 7. The patient is on lorazepam. 8. The patient is on Ativan. 9. Robaxin. 10. Metoprolol. 11. The patient is on morphine. 12. Aldactone. REVIEW OF SYSTEMS: HEENT: Unremarkable. RESPIRATORY: No shortness of breath or dyspnea on exertion. ABDOMEN: No dyspepsia. EXTREMITIES: No swelling. CENTRAL NERVOUS SYSTEM: Unremarkable. PHYSICAL EXAMINATION: GENERAL: The patient is awake, alert, anxious, a little tremulous. VITAL SIGNS: Pulse of 110, blood pressure 99/68. HEAD: Atraumatic, normocephalic. Pupils equal, reactive to light. No pale conjunctivae or icterus. NECK: Supple. LUNGS: Clear at this point. CARDIOVASCULAR: S1, S2 normal, irregular. ABDOMEN: Soft. Bowel sounds present. No palpable mass or hepatosplenomegaly. No guarding, rebound tenderness. EXTREMITIES: No cyanosis, clubbing, edema. CENTRAL NERVOUS SYSTEM: The patient is awake, alert, no focal deficit. LABORATORY DATA: As mentioned above, patient's repeat , BUN 35, creatinine 2.17. IMPRESSION: 1. Acute kidney injury. 2. Prerenal azotemia, possibly induced by diuretic. 3. Hyperkalemia, worsened by Aldactone. 4. Underlying possible chronic obstructive pulmonary disease. 5. Underlying history of alcohol abuse, pending delirium tremens. 6. Low ejection fraction with history of systolic heart failure. 7. Rule out obstructive uropathy. PLAN: To obtain UA, urine sodium and creatinine, urine protein/creatinine ratio and ultrasound of the kidney. The patient will have gentle IV fluid. Banana bag should be given. Orders were written. Thank you, Dr. De La Garza, for kindly asking me to see this patient in nephrology consultation. Dictated By: ALEN ULLOA/JOSÉ ANTONIO Conf#: [id number] DID#: [id number] MTDD
[2016-12-04] MEDS: MULTIVITAMINS 10 ML, THIAMINE 100 MG, FOLIC ACID 1 MG in SOD CHLORIDE 0.9% 1,000 ML IVPB SCH (09:01)
[2016-12-04] MEDS: NICOTINE (21 MG/24 HR) PATCH TRANSDERM SCH (09:01)
[2016-12-04] MEDS: METOPROLOL (XL) 50 MG TAB PO SCH ×2 (09:01→20:25)
[2016-12-04] MEDS: SALMETEROL/FLUTICASONE 250/50 INHA INH SCH ×2 (09:33→21:00)
[2016-12-04 10:16] LABS: ALBUMIN 3.1 g/dl (3.3-4.9); BILIRUBIN,INDIRECT 0.8 mg/dl (0-1.1); BILIRUBIN,TOTAL 0.8 mg/dl (0.2-1.3); TOTAL PROTEIN 6.2 g/dl (6.1-8.1)
--- NOTE | 2016-12-04 11:26 | CONS ---
Date/Time of Note Date/Time of Note DATE: 12/04/16 TIME: 11:22 Assessment/Plan Assessment/Plan Additional Assessment/Plan Chest x-ray was reviewed which is showing cardiomegaly without any acute infiltrates. Next Assessment and recommendations; 1. Patient admitted with shortness of breath due to underlying alcoholic cardiomyopathy developed atrial fibrillation with rapid ventricular response now currently in sinus rhythm with rate well controlled now. There has been significant improvement in shortness of breath. Continue current supportive care. Consider transfer to telemetry unit. Consultation Date/Type/Reason Admit Date/Time Dec 01, 2016 at 14:16 Date of Consultation: Dec 04, 2016 Type of Consultation: Pulmonary/critical care Reason for Consultation Pulmonary consultation requested for evaluation of shortness of breath. History of presenting any; patient is a 51-year-old male who came into the hospital 3 days ago with complaints of shortness of breath. The patient was initially admitted to the medical floor however last night the patient developed atrial fibrillation with rapid ventricular response, patient was converted to sinus rhythm after administration of Cardizem and was then transferred to ICU. Patient has remained in sinus rhythm and currently denies any further shortness of breath. He also denies any chest pain, wheezing, cough or any sputum production. Next Past medical history; 1. Patient with history of cardia myopathy with ejection fraction of around 20% . Medications; reviewed. Allergies; none. Social history; patient smokes about pack a day. Patient also drinks alcohol on a regular basis. Family history; noncontributory. Occupation history; patient is on disability. Review of systems; denies any headache, visual changes, sinus symptoms. Denies any chest pain. Shortness of breath has improved. Denies any coughing, wheezing, sputum production. Denies any abdominal pain, nausea or vomiting. Denies any edema. Complains of chronic orthopnea. Complains of chronic shortness of breath upon exertion. Denies any melena or hematochezia. General exam; middle-aged male, awake, currently in no distress. Constitutional: No diaphoresis, No disoriented Eyes: no complaints ENT: no complaints Respiratory: shortness of breath Cardiovascular: no complaints Gastrointestinal: no complaints Genitourinary: no complaints Musculoskeletal: no complaints Skin: no complaints Neurologic: no complaints Lymphatic: no complaints Psychological: no complaints Immunologic: no complaints Past Surgical History Past Surgical Hx: no surgical history Social History Alcohol Use: heavy Smoking Status: Current every day smoker Drug Use: cocaine Exam/Review of Systems Vital Signs Vitals Vital Signs Date Time Temp Pulse Resp B/P Pulse Ox O2 Delivery O2 Flow Rate FiO2 12/04/16 09:30 91 29 99 12/04/16 09:00 109/67 Nasal Cannula 12/04/16 08:00 98.6 12/04/16 08:00 4.0 Intake and Output 12/03/16 12/03/16 12/04/16 15:00 23:00 07:00 Intake Total 200 ml 720 ml 580 ml Output Total 2150 ml 1750 ml Balance 200 ml -1430 ml -1170 ml Exam HEENT exam; supple neck, no JVD. No lymphadenopathy. Midline trachea. No thyromegaly. Patient has fair dentition. Pupils are midsize and reactive to light. No neck masses. No thyromegaly. Chest exam; clear to auscultation. S1-S2 audible, no murmurs. Regular rhythm. Abdomen exam; soft, nondistended. No organomegaly. Bowel sounds audible. Extremity exam; no peripheral edema. No clubbing. Pulses 1+ bilaterally. WRAPPER OFF exam; no focal deficit. Results Result Diagram: 12/04/16 0549 12/04/16 0549 Results 24 hrs Laboratory Tests Test 12/03/16 13:17 12/03/16 13:37 12/03/16 19:24 12/04/16 05:46 Lactic Acid Level 2.6 *H 2.7 *H 1.2 Acetaminophen Level < 10.0 L Creatine Kinase 59 Creatine Kinase Index 4.1 Creatinine Kinase MB (Mass) 2.44 H Troponin I 0.169 *H Total Bilirubin 0.8 Direct Bilirubin 0.00 Indirect Bilirubin 0.8 Aspartate Amino Transf (AST/SGOT) 2961 H Alanine Aminotransferase (ALT/SGPT) 2965 H Alkaline Phosphatase 164 H Total Protein 6.2 Albumin 3.1 L Test 12/04/16 05:49 White Blood Count 14.1 H Red Blood Count 4.53 L Hemoglobin 14.0 Hematocrit 42.4 Mean Corpuscular Volume 93.6 Mean Corpuscular Hemoglobin 30.9 Mean Corpuscular Hemoglobin Concent 33.0 Red Cell Distribution Width 13.4 Platelet Count 205 # Mean Platelet Volume 9.9 Neutrophils % 81.5 H Lymphocytes % 12.3 L Monocytes % 3.9 Eosinophils % 0.8 Basophils % 0.4 Nucleated Red Blood Cells % 0.0 Neutrophils # 11.5 H Lymphocytes # 1.7 Monocytes # 0.6 Eosinophils # 0.1 Basophils # 0.1 Nucleated Red Blood Cells # 0.0 Sodium Level 137 Potassium Level 4.1 Chloride Level 103 Carbon Dioxide Level 31 Anion Gap 7 L Blood Urea Nitrogen 37 #H Creatinine 1.01 Glucose Level 83 Calcium Level 8.4 Phosphorus Level 3.5 Magnesium Level 1.8 Medications Medications Current Medications Ondansetron HCl (Zofran Inj) 4 mg Q6H PRN IV NAUSEA AND/OR VOMITING; Start 12/08 at 17:30 Acetaminophen (Tylenol Tab) 650 mg Q6H PRN PO PAIN LEVEL 1-3 OR FEVER; Start 12/01/16 at 17:30 Acetaminophen/ Hydrocodone Bitart ([place] (5/325)) 1 tab Q6H PRN PO MODERATE PAIN LEVEL 4-6; Start 12/01/16 at 17:30 Morphine Sulfate (morphine) 2 mg Q4H PRN IV SEVERE PAIN LEVEL 7-10 Last administered on 12/01/16 20:12; Admin Dose 2 MG; Start 12/01/16 at 17:30 Docusate Sodium (Colace) 100 mg Q12H PRN PO CONSTIPATION; Start 12/01/16 at 17 :30 Zolpidem Tartrate (Ambien) 5 mg QHS PRN PO SLEEP Last administered on 21:46; Admin Dose 5 MG; Start 12/01/16 at 17:30 Methocarbamol (Robaxin) 750 mg BID PRN PO MUSCLE SPASMS; Start 12/01/16 at 17: 30 Salmeterol Xinafoate/ Fluticasone (Advair 250/50 Diskus) 1 inh BID INH Last administered on 12/04/16 09:33; Admin Dose 1 INH; Start 12/01/16 at 21:00 Lorazepam (Ativan) 1 mg Q3H PRN IV ANXIETY Last administered on 12/03/16 00: 56; Admin Dose 1 MG; Start 12/01/16 at 21:30 Metoprolol Succinate (Toprol Xl) 50 mg BID PO Last administered on 12/04/16 09:01; Admin Dose 50 MG; Start 12/02/16 at 21:00 Amiodarone HCl (Cordarone) 200 mg TID PO Last administered on 12/03/16 13:26 ; Admin Dose 200 MG; Start 12/02/16 at 21:00; Status Future Hold Enoxaparin Sodium 60 mg 60 mg Q24H SC Last administered on 12/03/16 20:15; Admin Dose 60 MG; Start 12/02/16 at 20:00 Sodium Chloride 1,000 ml @ 30 mls/hr Q24H IV Last administered on 12/02/16 20:25; Admin Dose 30 MLS/HR; Start 12/02/16 at 19:30 Multivitamins/ Thiamine HCl/ Folic Acid/Sodium Chloride (Mvi Adult/ Vitamin B1/ Folic Acid/NS) 1,011.2 ml @ 40 mls/hr DAILY@09 IVPB Last administered on 12/04 09:01; Admin Dose 40 MLS/HR; Start 12/03/16 at 09:00 Nicotine (Nicoderm 21 Mg/ 24hr) 1 patch DAILY TRANSDERM Last administered on 09:01; Admin Dose 1 PATCH; Start 12/03/16 at 15:00 Hydralazine HCl (Apresoline) 25 mg Q8 PO Last administered on 12/04/16 06:11 ; Admin Dose 25 MG; Start 12/03/16 at 22:00 Diltiazem HCl (Cardizem Iv) 5 mg Q4 PRN IV HR>110 Hold SBP<100; Start at 20:30 EDDIE BENEDICT Dec 04, 2016 11:26
--- NOTE | 2016-12-04 12:18 | PN ---
Date/Time of Note Date/Time of Note DATE: 12/04/16 TIME: 12:07 Assessment/Plan VTE Prophylaxis VTE Prophylaxis Intervention: SCD's Lines/Catheters [facility]from [facility]): Peripheral IV Urinary Cath still in place: No Assessment/Plan Chief Complaint/Hosp Course 1. Acute respiratory distress secondary to CHF exacerbation and A. fib/flutter with RVR-improved Patient converted to sinus rhythm, shortness of breath has resolved Downgrade back to telemetry Continue diuresis with Lasix 40 IV twice daily Continue Toprol-XL and hydralazine Cardiology consultation appreciated Follow-up on stat chest x-ray 2. Acute hepatitis-improving Etiology likely secondary to poor hemodynamics and poor RV function Ultrasound of the liver shows no significant findings but does show slightly enlarged liver with fatty infiltration Viral hepatitis panel is negative GI consultation appreciated 3. Acute kidney injury with hyperkalemia etiology is cardiorenal-resolved Patient has significant improvement with increased dose of Lasix suggesting cardiorenal Continue Lasix IV Nephrology consultation appreciated Status post Kayexalate p.o. x 1 DC'd Aldactone 4. Lactic acidosis secondary to hypoperfusion likely from poor cardiac output and/or hypoxemia-resolved 5. History of substance abuse 6. Leukocytosis-reactive No evidence of infection at this time UA is normal Prophylaxis: SCDs Problems: Subjective 24 Hr Interval Summary Constitutional: no complaints Exam/Review of Systems Vital Signs Vitals Vital Signs Date Time Temp Pulse Resp B/P Pulse Ox O2 Delivery O2 Flow Rate FiO2 12/04/16 11:30 89 31 94 Room Air 12/04/16 11:00 109/65 2.0 12/04/16 08:00 98.6 Intake and Output 12/03/16 12/03/16 12/04/16 15:00 23:00 07:00 Intake Total 200 ml 720 ml 580 ml Output Total 2150 ml 1750 ml Balance 200 ml -1430 ml -1170 ml Exam Constitutional: alert, oriented Respiratory: clear to auscultation Cardiovascular: regular rate and rhythm Gastrointestinal: soft, No distended Musculoskeletal: nl extremities to inspection Results Result Diagram: 12/04/16 0549 12/04/16 0549 Results 24 hrs Laboratory Tests Test 12/03/16 13:17 12/03/16 13:37 12/03/16 19:24 12/04/16 05:46 Lactic Acid Level 2.6 *H 2.7 *H 1.2 Acetaminophen Level < 10.0 L Creatine Kinase 59 Creatine Kinase Index 4.1 Creatinine Kinase MB (Mass) 2.44 H Troponin I 0.169 *H Total Bilirubin 0.8 Direct Bilirubin 0.00 Indirect Bilirubin 0.8 Aspartate Amino Transf (AST/SGOT) 2961 H Alanine Aminotransferase (ALT/SGPT) 2965 H Alkaline Phosphatase 164 H Total Protein 6.2 Albumin 3.1 L Test 12/04/16 05:49 White Blood Count 14.1 H Red Blood Count 4.53 L Hemoglobin 14.0 Hematocrit 42.4 Mean Corpuscular Volume 93.6 Mean Corpuscular Hemoglobin 30.9 Mean Corpuscular Hemoglobin Concent 33.0 Red Cell Distribution Width 13.4 Platelet Count 205 # Mean Platelet Volume 9.9 Neutrophils % 81.5 H Lymphocytes % 12.3 L Monocytes % 3.9 Eosinophils % 0.8 Basophils % 0.4 Nucleated Red Blood Cells % 0.0 Neutrophils # 11.5 H Lymphocytes # 1.7 Monocytes # 0.6 Eosinophils # 0.1 Basophils # 0.1 Nucleated Red Blood Cells # 0.0 Sodium Level 137 Potassium Level 4.1 Chloride Level 103 Carbon Dioxide Level 31 Anion Gap 7 L Blood Urea Nitrogen 37 #H Creatinine 1.01 Glucose Level 83 Calcium Level 8.4 Phosphorus Level 3.5 Magnesium Level 1.8 Medications Medications Current Medications Ondansetron HCl (Zofran Inj) 4 mg Q6H PRN IV NAUSEA AND/OR VOMITING; Start 12/08 at 17:30 Acetaminophen (Tylenol Tab) 650 mg Q6H PRN PO PAIN LEVEL 1-3 OR FEVER; Start 12/01/16 at 17:30 Acetaminophen/ Hydrocodone Bitart ([place] (5/325)) 1 tab Q6H PRN PO MODERATE PAIN LEVEL 4-6; Start 12/01/16 at 17:30 Morphine Sulfate (morphine) 2 mg Q4H PRN IV SEVERE PAIN LEVEL 7-10 Last administered on 12/01/16 20:12; Admin Dose 2 MG; Start 12/01/16 at 17:30 Docusate Sodium (Colace) 100 mg Q12H PRN PO CONSTIPATION; Start 12/01/16 at 17 :30 Zolpidem Tartrate (Ambien) 5 mg QHS PRN PO SLEEP Last administered on 21:46; Admin Dose 5 MG; Start 12/01/16 at 17:30 Methocarbamol (Robaxin) 750 mg BID PRN PO MUSCLE SPASMS; Start 12/01/16 at 17: 30 Salmeterol Xinafoate/ Fluticasone (Advair 250/50 Diskus) 1 inh BID INH Last administered on 12/04/16 09:33; Admin Dose 1 INH; Start 12/01/16 at 21:00 Lorazepam (Ativan) 1 mg Q3H PRN IV ANXIETY Last administered on 12/03/16 00: 56; Admin Dose 1 MG; Start 12/01/16 at 21:30 Metoprolol Succinate (Toprol Xl) 50 mg BID PO Last administered on 12/04/16 09:01; Admin Dose 50 MG; Start 12/02/16 at 21:00 Amiodarone HCl (Cordarone) 200 mg TID PO Last administered on 12/03/16 13:26 ; Admin Dose 200 MG; Start 12/02/16 at 21:00; Status Future Hold Enoxaparin Sodium 60 mg 60 mg Q24H SC Last administered on 12/03/16 20:15; Admin Dose 60 MG; Start 12/02/16 at 20:00 Sodium Chloride 1,000 ml @ 30 mls/hr Q24H IV Last administered on 12/02/16 20:25; Admin Dose 30 MLS/HR; Start 12/02/16 at 19:30 Multivitamins/ Thiamine HCl/ Folic Acid/Sodium Chloride (Mvi Adult/ Vitamin B1/ Folic Acid/NS) 1,011.2 ml @ 40 mls/hr DAILY@09 IVPB Last administered on 12/04 09:01; Admin Dose 40 MLS/HR; Start 12/03/16 at 09:00 Nicotine (Nicoderm 21 Mg/ 24hr) 1 patch DAILY TRANSDERM Last administered on 09:01; Admin Dose 1 PATCH; Start 12/03/16 at 15:00 Hydralazine HCl (Apresoline) 25 mg Q8 PO Last administered on 12/04/16 06:11 ; Admin Dose 25 MG; Start 12/03/16 at 22:00 Diltiazem HCl (Cardizem Iv) 5 mg Q4 PRN IV HR>110 Hold SBP<100; Start at 20:30 TRUDI BARBOUR Dec 04, 2016 12:17
--- NOTE | 2016-12-04 14:57 | CONS ---
Date/Time of Note Date/Time of Note DATE: 12/04/16 TIME: 14:48 Assessment/Plan Assessment/Plan Chief Complaint/Hosp Course IMPRESSION: 1. Atrial flutter with rapid ventricular response, possibly new onset.-now converted to SR 2. Cardiomyopathy with severely depressed left ventricular ejection fraction approximately 20% to 25% by echo 10/2016. 3. Hypertension lower side with borderline Hotn 4. Chest pain in the setting of atrial fibrillation with rapid ventricular response. 5. History of alcohol and substance abuse. 6. Abnormal electrocardiogram, assess for acute coronary syndrome. 7. ARF 8. Increased LFT's/shock liver-slowly decreasing Recc: -Tele -serial ecg's -Continue Toprol/hydralazine as tolerated and may need to decrease doses -Continue to hold amio given increased LFT's -ONgoing GI and nephrology evals -Smoking cessation -Contiue lasix and follow volume status closely -Continue lovenox at this time Problems: Consultation Date/Type/Reason Admit Date/Time Dec 01, 2016 at 14:16 Initial Consult Date 12/03/16 Type of Consultation: cardiology Reason for Consultation AFL/CHF Referring Provider: TRUDI BARBOUR Exam/Review of Systems Vital Signs Vitals Vital Signs Date Time Temp Pulse Resp B/P Pulse Ox O2 Delivery O2 Flow Rate FiO2 12/04/16 13:00 84 27 113/73 95 Room Air 12/04/16 12:30 2.0 12/04/16 12:00 98.1 Intake and Output 12/03/16 12/03/16 12/04/16 15:00 23:00 07:00 Intake Total 200 ml 720 ml 580 ml Output Total 2150 ml 1750 ml Balance 200 ml -1430 ml -1170 ml Exam Review of Systems: CONSTITUTIONAL: No fevers, chills. PULMONARY: No sob CARDIOVASCULAR: No chest pain/palpitations GASTROINTESTINAL: No nausea/vomiting. GENITOURINARY: No hematuria/dysuria. MUSCULOSKELETAL: No myagias/arthalgias. PSYCHIATRIC: The patient denies depression. NEUROLOGIC: lethargic Constitutional: alert, oriented Psych: no complaints Head: normocephalic ENMT: mucosa pink and moist Neck: jvd (9 cm water), supple Respiratory: diminished breath sounds (at bases/B) Cardiovascular: regular rate and rhythm Gastrointestinal: non-tender, soft Musculoskeletal: muscle tone (normal) Extremities: edema (none) Neurological: lethargic Results Result Diagram: 12/04/16 0549 12/04/16 0549 Results 24 hrs Laboratory Tests Test 12/03/16 19:24 12/04/16 05:46 12/04/16 05:49 Lactic Acid Level 2.7 *H 1.2 Creatine Kinase 59 Creatine Kinase Index 4.1 Creatinine Kinase MB (Mass) 2.44 H Troponin I 0.169 *H Total Bilirubin 0.8 Direct Bilirubin 0.00 Indirect Bilirubin 0.8 Aspartate Amino Transf (AST/SGOT) 2961 H Alanine Aminotransferase (ALT/SGPT) 2965 H Alkaline Phosphatase 164 H Total Protein 6.2 Albumin 3.1 L White Blood Count 14.1 H Red Blood Count 4.53 L Hemoglobin 14.0 Hematocrit 42.4 Mean Corpuscular Volume 93.6 Mean Corpuscular Hemoglobin 30.9 Mean Corpuscular Hemoglobin Concent 33.0 Red Cell Distribution Width 13.4 Platelet Count 205 # Mean Platelet Volume 9.9 Neutrophils % 81.5 H Lymphocytes % 12.3 L Monocytes % 3.9 Eosinophils % 0.8 Basophils % 0.4 Nucleated Red Blood Cells % 0.0 Neutrophils # 11.5 H Lymphocytes # 1.7 Monocytes # 0.6 Eosinophils # 0.1 Basophils # 0.1 Nucleated Red Blood Cells # 0.0 Sodium Level 137 Potassium Level 4.1 Chloride Level 103 Carbon Dioxide Level 31 Anion Gap 7 L Blood Urea Nitrogen 37 #H Creatinine 1.01 Glucose Level 83 Calcium Level 8.4 Phosphorus Level 3.5 Magnesium Level 1.8 Medications Medications Current Medications Ondansetron HCl (Zofran Inj) 4 mg Q6H PRN IV NAUSEA AND/OR VOMITING; Start 12/08 at 17:30 Acetaminophen (Tylenol Tab) 650 mg Q6H PRN PO PAIN LEVEL 1-3 OR FEVER; Start 12/01/16 at 17:30 Acetaminophen/ Hydrocodone Bitart ([place] (5/325)) 1 tab Q6H PRN PO MODERATE PAIN LEVEL 4-6; Start 12/01/16 at 17:30 Morphine Sulfate (morphine) 2 mg Q4H PRN IV SEVERE PAIN LEVEL 7-10 Last administered on 12/01/16t 20:12; Admin Dose 2 MG; Start 12/01/16 at 17:30 Docusate Sodium (Colace) 100 mg Q12H PRN PO CONSTIPATION; Start 12/01/16 at 17 :30 Zolpidem Tartrate (Ambien) 5 mg QHS PRN PO SLEEP Last administered on 21:46; Admin Dose 5 MG; Start 12/01/16 at 17:30 Methocarbamol (Robaxin) 750 mg BID PRN PO MUSCLE SPASMS; Start 12/01/16 at 17: 30 Salmeterol Xinafoate/ Fluticasone (Advair 250/50 Diskus) 1 inh BID INH Last administered on 12/04/16 09:33; Admin Dose 1 INH; Start 12/01/16 at 21:00 Lorazepam (Ativan) 1 mg Q3H PRN IV ANXIETY Last administered on 12/03/16 00: 56; Admin Dose 1 MG; Start 12/01/16 at 21:30 Metoprolol Succinate (Toprol Xl) 50 mg BID PO Last administered on 12/04/16 09:01; Admin Dose 50 MG; Start 12/02/16 at 21:00 Amiodarone HCl (Cordarone) 200 mg TID PO Last administered on 12/03/16 13:26 ; Admin Dose 200 MG; Start 12/02/16 at 21:00; Status Future Hold Enoxaparin Sodium 60 mg 60 mg Q24H SC Last administered on 12/03/16 20:15; Admin Dose 60 MG; Start 12/02/16 at 20:00 Sodium Chloride 1,000 ml @ 30 mls/hr Q24H IV Last administered on 12/02/16 20:25; Admin Dose 30 MLS/HR; Start 12/02/16 at 19:30 Multivitamins/ Thiamine HCl/ Folic Acid/Sodium Chloride (Mvi Adult/ Vitamin B1/ Folic Acid/NS) 1,011.2 ml @ 40 mls/hr DAILY@09 IVPB Last administered on 12/04 09:01; Admin Dose 40 MLS/HR; Start 12/03/16 at 09:00 Nicotine (Nicoderm 21 Mg/ 24hr) 1 patch DAILY TRANSDERM Last administered on 09:01; Admin Dose 1 PATCH; Start 12/03/16 at 15:00 Hydralazine HCl (Apresoline) 25 mg Q8 PO Last administered on 12/04/16t 06:11 ; Admin Dose 25 MG; Start 12/03/16 at 22:00 Diltiazem HCl (Cardizem Iv) 5 mg Q4 PRN IV HR>110 Hold SBP<100; Start at 20:30 RAFAEL RUVALCABA Dec 04, 2016 14:57
--- NOTE | 2016-12-04 15:55 | PN ---
Date/Time of Note Date/Time of Note DATE: 12/04/16 TIME: 15:43 Assessment/Plan VTE Prophylaxis VTE Prophylaxis Intervention: SCD's Lines/Catheters IV [facility]from [facility] Peripheral IV Urinary Cath still in place: No Assessment/Plan Chief Complaint/Hosp Course Assessment: Acute hepatitis/ most likely ischemic due to poor profusion/improved Aflutter with RVR- converted CHF EF 20% HTN Leukocytosis- reactive Plan: Pt being transferred back to tele- converted back to SR during the night Continue to monitor LFT's trend Continue current regimen Work-up for other underlying etiology pending Patient seen in collaboration with Dr. Cook Subjective: Course reviewed with nursing staff Patient interviewed and examined All labs, imaging and other results reviewed The patient feeling better getting ready to be transferred back to telemetry. No c/o abd pain ,nausea or vomiting, or overt GI bleed. Discussed with patient most likely cause of acute hepatitis poor profusion Problems: Exam/Review of Systems Vital Signs Vitals Vital Signs Date Time Temp Pulse Resp B/P Pulse Ox O2 Delivery O2 Flow Rate FiO2 12/04/16 15:00 86 29 103/66 96 12/04/16 14:00 Room Air 12/04/16 12:30 2.0 12/04/16 12:00 98.1 Intake and Output 12/03/16 12/03/16 12/04/16 15:00 23:00 07:00 Intake Total 200 ml 720 ml 620 ml Output Total 2150 ml 1750 ml Balance 200 ml -1430 ml -1130 ml Results Result Diagram: 12/04/16 0549 12/04/16 0549 Results 24 hrs Laboratory Tests Test 12/03/16 19:24 12/04/16 05:46 12/04/16 05:49 Lactic Acid Level 2.7 *H 1.2 Creatine Kinase 59 Creatine Kinase Index 4.1 Creatinine Kinase MB (Mass) 2.44 H Troponin I 0.169 *H Total Bilirubin 0.8 Direct Bilirubin 0.00 Indirect Bilirubin 0.8 Aspartate Amino Transf (AST/SGOT) 2961 H Alanine Aminotransferase (ALT/SGPT) 2965 H Alkaline Phosphatase 164 H Total Protein 6.2 Albumin 3.1 L White Blood Count 14.1 H Red Blood Count 4.53 L Hemoglobin 14.0 Hematocrit 42.4 Mean Corpuscular Volume 93.6 Mean Corpuscular Hemoglobin 30.9 Mean Corpuscular Hemoglobin Concent 33.0 Red Cell Distribution Width 13.4 Platelet Count 205 # Mean Platelet Volume 9.9 Neutrophils % 81.5 H Lymphocytes % 12.3 L Monocytes % 3.9 Eosinophils % 0.8 Basophils % 0.4 Nucleated Red Blood Cells % 0.0 Neutrophils # 11.5 H Lymphocytes # 1.7 Monocytes # 0.6 Eosinophils # 0.1 Basophils # 0.1 Nucleated Red Blood Cells # 0.0 Sodium Level 137 Potassium Level 4.1 Chloride Level 103 Carbon Dioxide Level 31 Anion Gap 7 L Blood Urea Nitrogen 37 #H Creatinine 1.01 Glucose Level 83 Calcium Level 8.4 Phosphorus Level 3.5 Magnesium Level 1.8 Medications Medications Current Medications Ondansetron HCl (Zofran Inj) 4 mg Q6H PRN IV NAUSEA AND/OR VOMITING; Start 12/08 at 17:30 Acetaminophen (Tylenol Tab) 650 mg Q6H PRN PO PAIN LEVEL 1-3 OR FEVER; Start 12/01/16 at 17:30 Acetaminophen/ Hydrocodone Bitart ([place] (5/325)) 1 tab Q6H PRN PO MODERATE PAIN LEVEL 4-6; Start 12/01/16 at 17:30 Morphine Sulfate (morphine) 2 mg Q4H PRN IV SEVERE PAIN LEVEL 7-10 Last administered on 12/01/16 20:12; Admin Dose 2 MG; Start 12/01/16 at 17:30 Docusate Sodium (Colace) 100 mg Q12H PRN PO CONSTIPATION; Start 12/01/16 at 17 :30 Zolpidem Tartrate (Ambien) 5 mg QHS PRN PO SLEEP Last administered on 21:46; Admin Dose 5 MG; Start 12/01/16 at 17:30 Methocarbamol (Robaxin) 750 mg BID PRN PO MUSCLE SPASMS; Start 12/01/16 at 17: 30 Salmeterol Xinafoate/ Fluticasone (Advair 250/50 Diskus) 1 inh BID INH Last administered on 12/04/16 09:33; Admin Dose 1 INH; Start 12/01/16 at 21:00 Lorazepam (Ativan) 1 mg Q3H PRN IV ANXIETY Last administered on 12/03/16 00: 56; Admin Dose 1 MG; Start 12/01/16 at 21:30 Metoprolol Succinate (Toprol Xl) 50 mg BID PO Last administered on 12/04/16 09:01; Admin Dose 50 MG; Start 12/02/16 at 21:00 Amiodarone HCl (Cordarone) 200 mg TID PO Last administered on 12/03/16 13:26 ; Admin Dose 200 MG; Start 12/02/16 at 21:00; Status Future Hold Enoxaparin Sodium 60 mg 60 mg Q24H SC Last administered on 12/03/16 20:15; Admin Dose 60 MG; Start 12/02/16 at 20:00 Sodium Chloride 1,000 ml @ 30 mls/hr Q24H IV Last administered on 12/02/16 20:25; Admin Dose 30 MLS/HR; Start 12/02/16 at 19:30 Multivitamins/ Thiamine HCl/ Folic Acid/Sodium Chloride (Mvi Adult/ Vitamin B1/ Folic Acid/NS) 1,011.2 ml @ 40 mls/hr DAILY@09 IVPB Last administered on 12/04 09:01; Admin Dose 40 MLS/HR; Start 12/03/16 at 09:00 Nicotine (Nicoderm 21 Mg/ 24hr) 1 patch DAILY TRANSDERM Last administered on 09:01; Admin Dose 1 PATCH; Start 12/03/16 at 15:00 Diltiazem HCl (Cardizem Iv) 5 mg Q4 PRN IV HR>110 Hold SBP<100; Start at 20:30 Hydralazine HCl (Apresoline) 10 mg Q8 PO ; Start 12/04/16 at 22:00 ABRIL REDDING Dec 04, 2016 15:54
--- NOTE | 2016-12-04 16:02 | RADRPT ---
Vent Rate: 121 bpm RR Interval: 0 msec NE Interval: 0 msec QRS Duration: 96 msec QT Interval: 298 msec QTC Interval: 423 msec P-R-T [place]: 0 - 71 - -67 degrees Atrial flutter with 2:[address] abnormality, possible inferior subendocardial injury Abnormal ECG Electronically Signed By: Yovany Weaver [id number]
--- NOTE | 2016-12-04 16:08 | RADRPT ---
Vent Rate: 92 bpm RR Interval: 0 msec ID Interval: 148 msec QRS Duration: 98 msec QT Interval: 388 msec QTC Interval: 479 msec P-R-T [place]: 54 - 77 - -35 degrees Normal sinus rhythm Possible Left atrial enlargement Incomplete right bundle branch block Left ventricular hypertrophy Nonspecific ST and T wave abnormality Prolonged QT Abnormal ECG Electronically Signed By: Yovany Weaver [id number]
--- NOTE | 2016-12-04 17:08 | CONS ---
Date/Time of Note Date/Time of Note DATE: 12/04/16 TIME: 17:06 Assessment/Plan Assessment/Plan Chief Complaint/Hosp Course 1. Acute kidney injury.BETTER 2. Prerenal azotemia, possibly induced by diuretic. 3. Hyperkalemia, worsened by Aldactone. 4. Underlying possible chronic obstructive pulmonary disease. 5. Underlying history of alcohol abuse, pending delirium tremens. 6. Low ejection fraction with history of systolic heart failure. 7. Rule out obstructive uropathy. PLAN LYTES STABLE Problems: Consultation Date/Type/Reason Admit Date/Time Dec 01, 2016 at 14:16 Initial Consult Date 12/03/16 Type of Consultation: RENAL Referring Provider: TRUDI BARBOUR 24 HR Interval Summary Constitutional: no complaints Exam/Review of Systems Vital Signs Vitals Vital Signs Date Time Temp Pulse Resp B/P Pulse Ox O2 Delivery O2 Flow Rate FiO2 12/04/16 16:00 88 12/04/16 15:00 29 103/66 96 12/04/16 14:00 Room Air 12/04/16 12:30 2.0 12/04/16 12:00 98.1 Intake and Output 12/03/16 12/03/16 12/04/16 15:00 23:00 07:00 Intake Total 200 ml 720 ml 620 ml Output Total 2150 ml 1750 ml Balance 200 ml -1430 ml -1130 ml Exam Respiratory: diminished breath sounds Cardiovascular: regular rate and rhythm Gastrointestinal: bowel sounds (+), soft Extremities: No edema Results Result Diagram: 12/04/16 0549 12/04/16 0549 Results 24 hrs Laboratory Tests Test 12/03/16 19:24 12/04/16 05:46 12/04/16 05:49 Lactic Acid Level 2.7 *H 1.2 Creatine Kinase 59 Creatine Kinase Index 4.1 Creatinine Kinase MB (Mass) 2.44 H Troponin I 0.169 *H Total Bilirubin 0.8 Direct Bilirubin 0.00 Indirect Bilirubin 0.8 Aspartate Amino Transf (AST/SGOT) 2961 H Alanine Aminotransferase (ALT/SGPT) 2965 H Alkaline Phosphatase 164 H Total Protein 6.2 Albumin 3.1 L White Blood Count 14.1 H Red Blood Count 4.53 L Hemoglobin 14.0 Hematocrit 42.4 Mean Corpuscular Volume 93.6 Mean Corpuscular Hemoglobin 30.9 Mean Corpuscular Hemoglobin Concent 33.0 Red Cell Distribution Width 13.4 Platelet Count 205 # Mean Platelet Volume 9.9 Neutrophils % 81.5 H Lymphocytes % 12.3 L Monocytes % 3.9 Eosinophils % 0.8 Basophils % 0.4 Nucleated Red Blood Cells % 0.0 Neutrophils # 11.5 H Lymphocytes # 1.7 Monocytes # 0.6 Eosinophils # 0.1 Basophils # 0.1 Nucleated Red Blood Cells # 0.0 Sodium Level 137 Potassium Level 4.1 Chloride Level 103 Carbon Dioxide Level 31 Anion Gap 7 L Blood Urea Nitrogen 37 #H Creatinine 1.01 Glucose Level 83 Calcium Level 8.4 Phosphorus Level 3.5 Magnesium Level 1.8 Medications Medications Current Medications Ondansetron HCl (Zofran Inj) 4 mg Q6H PRN IV NAUSEA AND/OR VOMITING; Start 12/08 at 17:30 Acetaminophen (Tylenol Tab) 650 mg Q6H PRN PO PAIN LEVEL 1-3 OR FEVER; Start 12/01/16 at 17:30 Acetaminophen/ Hydrocodone Bitart ([place] (5/325)) 1 tab Q6H PRN PO MODERATE PAIN LEVEL 4-6; Start 12/01/16 at 17:30 Morphine Sulfate (morphine) 2 mg Q4H PRN IV SEVERE PAIN LEVEL 7-10 Last administered on 12/01/16 20:12; Admin Dose 2 MG; Start 12/01/16 at 17:30 Docusate Sodium (Colace) 100 mg Q12H PRN PO CONSTIPATION; Start 12/01/16 at 17 :30 Zolpidem Tartrate (Ambien) 5 mg QHS PRN PO SLEEP Last administered on 21:46; Admin Dose 5 MG; Start 12/01/16 at 17:30 Methocarbamol (Robaxin) 750 mg BID PRN PO MUSCLE SPASMS; Start 12/01/16 at 17: 30 Salmeterol Xinafoate/ Fluticasone (Advair 250/50 Diskus) 1 inh BID INH Last administered on 12/04/16 09:33; Admin Dose 1 INH; Start 12/01/16 at 21:00 Lorazepam (Ativan) 1 mg Q3H PRN IV ANXIETY Last administered on 12/03/16 00: 56; Admin Dose 1 MG; Start 12/01/16 at 21:30 Metoprolol Succinate (Toprol Xl) 50 mg BID PO Last administered on 12/04/16 09:01; Admin Dose 50 MG; Start 12/02/16 at 21:00 Amiodarone HCl (Cordarone) 200 mg TID PO Last administered on 12/03/16 13:26 ; Admin Dose 200 MG; Start 12/02/16 at 21:00; Status Future Hold Enoxaparin Sodium 60 mg 60 mg Q24H SC Last administered on 12/03/16 20:15; Admin Dose 60 MG; Start 12/02/16 at 20:00 Sodium Chloride 1,000 ml @ 30 mls/hr Q24H IV Last administered on 12/02/16 20:25; Admin Dose 30 MLS/HR; Start 12/02/16 at 19:30 Multivitamins/ Thiamine HCl/ Folic Acid/Sodium Chloride (Mvi Adult/ Vitamin B1/ Folic Acid/NS) 1,011.2 ml @ 40 mls/hr DAILY@09 IVPB Last administered on 12/04 09:01; Admin Dose 40 MLS/HR; Start 12/03/16 at 09:00 Nicotine (Nicoderm 21 Mg/ 24hr) 1 patch DAILY TRANSDERM Last administered on 09:01; Admin Dose 1 PATCH; Start 12/03/16 at 15:00 Diltiazem HCl (Cardizem Iv) 5 mg Q4 PRN IV HR>110 Hold SBP<100; Start at 20:30 Hydralazine HCl (Apresoline) 10 mg Q8 PO ; Start 12/04/16 at 22:00 ALEN QUINTANILLA MD Dec 04, 2016 17:08
[2016-12-04] MEDS: SOD CHLORIDE 0.9% 1,000 ML IV SCH (19:30)
[2016-12-04] MEDS: ENOXAPARIN 60 MG/0.6 ML SYG SC SCH (20:45)
[2016-12-04] MEDS: ZOLPIDEM 5 MG TAB PO PRN (21:08)
[2016-12-05] VITALS (8 sets, daily range): BP systolic 124–153; BP diastolic 83–95; PULSE 88–96; RESP 16–20
[2016-12-05] MEDS: FUROSEMIDE 40 MG INJ IV SCH (06:22)
[2016-12-05 08:20] LABS: BASOPHIL # 0.1 10^3/ul (0.0-0.1); BASOPHILS % 0.8 % (0.0-2.0); EOSINOPHILS # 0.3 10^3/ul (0.0-0.5); HEMATOCRIT 47.1 % (42.0-52.0); HEMOGLOBIN 15.4 g/dl (14.0-18.0); LYMPHOCYTES # 2.3 10^3/ul (0.8-2.9); MEAN CORPUSCULAR HEMOGLOBIN 30.6 pg (29.0-33.0); MEAN CORPUSCULAR HGB CONC 32.7 g/dl (32.0-37.0); MEAN CORPUSCULAR VOLUME 93.5 fl (82.0-101.0); MEAN PLATELET VOLUME 9.3 fl (7.4-10.4); MONOCYTES % 8.6 % (0.0-11.0); NEUTROPHIL # 7.2 10^3/ul (1.6-7.5); NEUTROPHILS % 65.1 % (39.0-77.0); PLATELET COUNT 241 10^3/UL (140-415); RED BLOOD COUNT 5.04 10^6/ul (4.70-6.10); RED CELL DISTRIBUTION WIDTH 13.7 % (11.5-14.5)
[2016-12-05] MEDS: SALMETEROL/FLUTICASONE 250/50 INHA INH SCH (08:30)
[2016-12-05] MEDS: NICOTINE (21 MG/24 HR) PATCH TRANSDERM SCH (08:30)
[2016-12-05] MEDS: METOPROLOL (XL) 50 MG TAB PO SCH (08:31)
[2016-12-05] MEDS: MULTIVITAMINS 10 ML, THIAMINE 100 MG, FOLIC ACID 1 MG in SOD CHLORIDE 0.9% 1,000 ML IVPB SCH (08:32)
[2016-12-05 08:44] LABS: ALBUMIN 3.3 g/dl (3.3-4.9); ALBUMIN/GLOBULIN RATIO 0.86; BILIRUBIN,INDIRECT 0.9 mg/dl (0-1.1); BILIRUBIN,TOTAL 0.9 mg/dl (0.2-1.3); CALCIUM 9.3 mg/dl (8.4-10.2); CREATININE 0.9 mg/dl (0.61-1.24); POTASSIUM 3.7 mmol/L (3.5-5.1); TOTAL PROTEIN 7.1 g/dl (6.1-8.1)
[2016-12-05] MEDS ORDERED: FURO-109 PO (10:45)
[2016-12-05] MEDS ORDERED: METO-319 PO (10:45)
--- NOTE | 2016-12-05 10:45 | PDOCDIS ---
Discharge Instructions CONDITION Patient Condition: Good HOME CARE INSTRUCTIONS: Diet Instructions: Reduced Sodium ACTIVITY: Activity Restrictions: No Restrictions FOLLOW UP/APPOINTMENTS Follow-up Plan F/U WITH YOUR PCP IN 1-2 WEEKS TRUDI BARBOUR Dec 05, 2016 10:45
--- NOTE | 2016-12-05 10:52 | PN ---
Date/Time of Note Date/Time of Note DATE: 12/05/16 TIME: 10:49 Assessment/Plan VTE Prophylaxis VTE Prophylaxis Intervention: ambulation Lines/Catheters IV Catheter Type (from [facility]): Peripheral IV Urinary Cath still in place: No Assessment/Plan Chief Complaint/Hosp Course Assessment: Acute hepatitis/ most likely ischemic due to poor profusion/continues to improve Aflutter with RVR- converted CHF EF 20% HTN Leukocytosis- reactive Plan: Discussed with patient to stop drinking and quit smoking Work-up for other underlying etiology pending Plan to be d/c'd home today Follow- up with GI for 3-4 weeks Patient needs screening colonoscopy Patient seen in collaboration with Dr. Cook Subjective: Course reviewed with nursing staff Patient interviewed and examined All labs, imaging and other results reviewed The patient doing well, labs trend continues to improve Discussed in detail smoking cessation and the importance of not drinking No c/o abd pain ,nausea or vomiting, or overt GI bleed. Discussed with patient most likely cause of acute hepatitis poor profusion Problems: Exam/Review of Systems Vital Signs Vitals Vital Signs Date Time Temp Pulse Resp B/P Pulse Ox O2 Delivery O2 Flow Rate FiO2 12/05/16 08:00 89 12/05/16 07:52 98.0 19 130/92 93 12/05/16 00:23 2.0 12/04/16 20:00 Nasal Cannula Intake and Output 12/04/16 12/04/16 12/05/16 15:00 23:00 07:00 Intake Total 1070 ml 80 ml Output Total 2000 ml Balance -930 ml 80 ml Results Result Diagram: 12/05/16 0757 12/05/16 0757 Results 24 hrs Laboratory Tests Test 12/05/16 07:57 White Blood Count 11.0 #H Red Blood Count 5.04 Hemoglobin 15.4 Hematocrit 47.1 Mean Corpuscular Volume 93.5 Mean Corpuscular Hemoglobin 30.6 Mean Corpuscular Hemoglobin Concent 32.7 Red Cell Distribution Width 13.7 Platelet Count 241 Mean Platelet Volume 9.3 Neutrophils % 65.1 Lymphocytes % 21.0 Monocytes % 8.6 Eosinophils % 3.0 Basophils % 0.8 Nucleated Red Blood Cells % 0.0 Neutrophils # 7.2 Lymphocytes # 2.3 Monocytes # 1.0 H Eosinophils # 0.3 Basophils # 0.1 Nucleated Red Blood Cells # 0.0 Sodium Level 132 L Potassium Level 3.7 Chloride Level 100 Carbon Dioxide Level 32 H Anion Gap 4 L Blood Urea Nitrogen 26 #H Creatinine 0.90 Glucose Level 100 Calcium Level 9.3 Total Bilirubin 0.9 Direct Bilirubin 0.00 Indirect Bilirubin 0.9 Aspartate Amino Transf (AST/SGOT) 1569 H Alanine Aminotransferase (ALT/SGPT) 2775 H Alkaline Phosphatase 192 H Total Protein 7.1 Albumin 3.3 Globulin 3.80 H Albumin/Globulin Ratio 0.86 Medications Medications Current Medications Ondansetron HCl (Zofran Inj) 4 mg Q6H PRN IV NAUSEA AND/OR VOMITING; Start 12/08 at 17:30 Acetaminophen (Tylenol Tab) 650 mg Q6H PRN PO PAIN LEVEL 1-3 OR FEVER; Start 12/01/16 at 17:30 Acetaminophen/ Hydrocodone Bitart ([place] (5/325)) 1 tab Q6H PRN PO MODERATE PAIN LEVEL 4-6 Last administered on 12/04/16 20:25; Admin Dose 1 TAB; Start 12/01/16 at 17:30 Morphine Sulfate (morphine) 2 mg Q4H PRN IV SEVERE PAIN LEVEL 7-10 Last administered on 12/01/16 20:12; Admin Dose 2 MG; Start 12/01/16 at 17:30 Docusate Sodium (Colace) 100 mg Q12H PRN PO CONSTIPATION; Start 12/01/16 at 17 :30 Zolpidem Tartrate (Ambien) 5 mg QHS PRN PO SLEEP Last administered on 21:08; Admin Dose 5 MG; Start 12/01/16 at 17:30 Methocarbamol (Robaxin) 750 mg BID PRN PO MUSCLE SPASMS; Start 12/01/16 at 17: 30 Salmeterol Xinafoate/ Fluticasone (Advair 250/50 Diskus) 1 inh BID INH Last administered on 12/05/16 08:30; Admin Dose 1 INH; Start 12/01/16 at 21:00 Lorazepam (Ativan) 1 mg Q3H PRN IV ANXIETY Last administered on 12/03/16 00: 56; Admin Dose 1 MG; Start 12/01/16 at 21:30 Metoprolol Succinate (Toprol Xl) 50 mg BID PO Last administered on 12/05/16 08:31; Admin Dose 50 MG; Start 12/02/16 at 21:00 Amiodarone HCl (Cordarone) 200 mg TID PO Last administered on 12/03/16 13:26 ; Admin Dose 200 MG; Start 12/02/16 at 21:00; Status Future Hold Enoxaparin Sodium 60 mg 60 mg Q24H SC Last administered on 12/04/16 20:45; Admin Dose 60 MG; Start 12/02/16 at 20:00 Sodium Chloride 1,000 ml @ 30 mls/hr Q24H IV Last administered on 12/04/16 19:30; Admin Dose 30 MLS/HR; Start 12/02/16 at 19:30 Multivitamins/ Thiamine HCl/ Folic Acid/Sodium Chloride (Mvi Adult/ Vitamin B1/ Folic Acid/NS) 1,011.2 ml @ 40 mls/hr DAILY@09 IVPB Last administered on 12/05 08:32; Admin Dose 40 MLS/HR; Start 12/03/16 at 09:00 Nicotine (Nicoderm 21 Mg/ 24hr) 1 patch DAILY TRANSDERM Last administered on 08:30; Admin Dose 1 PATCH; Start 12/03/16 at 15:00 Diltiazem HCl (Cardizem Iv) 5 mg Q4 PRN IV HR>110 Hold SBP<100; Start at 20:30 Hydralazine HCl (Apresoline) 10 mg Q8 PO Last administered on 12/04/16 20:41 ; Admin Dose 10 MG; Start 12/04/16 at 22:00 ABRIL REDDING Dec 05, 2016 10:52
--- NOTE | 2016-12-05 11:04 | CONS ---
Date/Time of Note Date/Time of Note DATE: 12/05/16 TIME: 11:03 Consultation Date/Type/Reason Admit Date/Time Dec 01, 2016 at 14:16 Initial Consult Date 12/04/16 Type of Consultation: pulm Referring Provider: TRUDI BARBOUR 24 HR Interval Summary Free Text/Dictation dictated [id number] Exam/Review of Systems Vital Signs Vitals Vital Signs Date Time Temp Pulse Resp B/P Pulse Ox O2 Delivery O2 Flow Rate FiO2 12/05/16 08:00 89 12/05/16 07:52 98.0 19 130/92 93 12/05/16 00:23 2.0 12/04/16 20:00 Nasal Cannula Intake and Output 12/04/16 12/04/16 12/05/16 15:00 23:00 07:00 Intake Total 1070 ml 80 ml Output Total 2000 ml Balance -930 ml 80 ml Results Result Diagram: 12/05/16 0757 12/05/16 0757 Results 24 hrs Laboratory Tests Test 12/05/16 07:57 White Blood Count 11.0 #H Red Blood Count 5.04 Hemoglobin 15.4 Hematocrit 47.1 Mean Corpuscular Volume 93.5 Mean Corpuscular Hemoglobin 30.6 Mean Corpuscular Hemoglobin Concent 32.7 Red Cell Distribution Width 13.7 Platelet Count 241 Mean Platelet Volume 9.3 Neutrophils % 65.1 Lymphocytes % 21.0 Monocytes % 8.6 Eosinophils % 3.0 Basophils % 0.8 Nucleated Red Blood Cells % 0.0 Neutrophils # 7.2 Lymphocytes # 2.3 Monocytes # 1.0 H Eosinophils # 0.3 Basophils # 0.1 Nucleated Red Blood Cells # 0.0 Sodium Level 132 L Potassium Level 3.7 Chloride Level 100 Carbon Dioxide Level 32 H Anion Gap 4 L Blood Urea Nitrogen 26 #H Creatinine 0.90 Glucose Level 100 Calcium Level 9.3 Total Bilirubin 0.9 Direct Bilirubin 0.00 Indirect Bilirubin 0.9 Aspartate Amino Transf (AST/SGOT) 1569 H Alanine Aminotransferase (ALT/SGPT) 2775 H Alkaline Phosphatase 192 H Total Protein 7.1 Albumin 3.3 Globulin 3.80 H Albumin/Globulin Ratio 0.86 Medications Medications Current Medications Ondansetron HCl (Zofran Inj) 4 mg Q6H PRN IV NAUSEA AND/OR VOMITING; Start 12/08 at 17:30 Acetaminophen (Tylenol Tab) 650 mg Q6H PRN PO PAIN LEVEL 1-3 OR FEVER; Start 12/01/16 at 17:30 Acetaminophen/ Hydrocodone Bitart ([place] (5/325)) 1 tab Q6H PRN PO MODERATE PAIN LEVEL 4-6 Last administered on 12/04/16 20:25; Admin Dose 1 TAB; Start 12/01/16 at 17:30 Morphine Sulfate (morphine) 2 mg Q4H PRN IV SEVERE PAIN LEVEL 7-10 Last administered on 12/01/16 20:12; Admin Dose 2 MG; Start 12/01/16 at 17:30 Docusate Sodium (Colace) 100 mg Q12H PRN PO CONSTIPATION; Start 12/01/16 at 17 :30 Zolpidem Tartrate (Ambien) 5 mg QHS PRN PO SLEEP Last administered on 21:08; Admin Dose 5 MG; Start 12/01/16 at 17:30 Methocarbamol (Robaxin) 750 mg BID PRN PO MUSCLE SPASMS; Start 12/01/16 at 17: 30 Salmeterol Xinafoate/ Fluticasone (Advair 250/50 Diskus) 1 inh BID INH Last administered on 12/05/16 08:30; Admin Dose 1 INH; Start 12/01/16 at 21:00 Lorazepam (Ativan) 1 mg Q3H PRN IV ANXIETY Last administered on 12/03/16 00: 56; Admin Dose 1 MG; Start 12/01/16 at 21:30 Metoprolol Succinate (Toprol Xl) 50 mg BID PO Last administered on 12/05/16 08:31; Admin Dose 50 MG; Start 12/02/16 at 21:00 Amiodarone HCl (Cordarone) 200 mg TID PO Last administered on 12/03/16 13:26 ; Admin Dose 200 MG; Start 12/02/16 at 21:00; Status Future Hold Enoxaparin Sodium 60 mg 60 mg Q24H SC Last administered on 12/04/16 20:45; Admin Dose 60 MG; Start 12/02/16 at 20:00 Sodium Chloride 1,000 ml @ 30 mls/hr Q24H IV Last administered on 12/04/16 19:30; Admin Dose 30 MLS/HR; Start 12/02/16 at 19:30 Multivitamins/ Thiamine HCl/ Folic Acid/Sodium Chloride (Mvi Adult/ Vitamin B1/ Folic Acid/NS) 1,011.2 ml @ 40 mls/hr DAILY@09 IVPB Last administered on 12/05 08:32; Admin Dose 40 MLS/HR; Start 12/03/16 at 09:00 Nicotine (Nicoderm 21 Mg/ 24hr) 1 patch DAILY TRANSDERM Last administered on 08:30; Admin Dose 1 PATCH; Start 12/03/16 at 15:00 Diltiazem HCl (Cardizem Iv) 5 mg Q4 PRN IV HR>110 Hold SBP<100; Start at 20:30 Hydralazine HCl (Apresoline) 10 mg Q8 PO Last administered on 12/04/16 20:41 ; Admin Dose 10 MG; Start 12/04/16 at 22:00 EDDIE BENEDICT Dec 05, 2016 11:04
--- NOTE | 2016-12-05 13:38 | CONS ---
Date/Time of Note Date/Time of Note DATE: 12/05/16 TIME: 13:37 Assessment/Plan Assessment/Plan Additional Assessment/Plan 1.CHF-EF 20-25% by echo read this admission and thus systolic acute on chronic- Neg trop x 3 - HR better overall - con't DT prophylaxis. - stable, overall improved. Outpt ICD eval. 2.HTN - well rx - better now 3.ETOH/substance abuse abuse - con't DT prophylaxis - D/C advuised. 4.LE edema - better, satble urine output BETTER - keep euvolemic. IMPROVED. 5.Pos Tob - d/c advised Consultation Date/Type/Reason Admit Date/Time Dec 01, 2016 at 14:16 Initial Consult Date 12/04/16 Type of Consultation: pulm Referring Provider: TRUDI BARBOUR 24 HR Interval Summary Free Text/Dictation NO acute events - sinus on tele now ROS: No fever, no chills, no nausea, no vomiting, no diarrhea/constipation No recent weight changes No chest pain, no PND, no orthopnea No dizziness, blurred vision No thirst, no heat or cold intolerance Exam/Review of Systems Vital Signs Vitals Vital Signs Date Time Temp Pulse Resp B/P Pulse Ox O2 Delivery O2 Flow Rate FiO2 12/05/16 12:03 98.1 73 18 153/83 96 12/05/16 00:23 2.0 12/04/16 20:00 Nasal Cannula Intake and Output 12/04/16 12/04/16 12/05/16 15:00 23:00 07:00 Intake Total 1070 ml 80 ml Output Total 2000 ml Balance -930 ml 80 ml Exam General: WN/WD/NAD, AOx 3 HEENT: Unicetric/atraumatic/EOMI (follow commands) NECK: JVD elevated, no thyromegaly Lymph: no lymphadenopathy HEART: regular with no S3, II/ systolic murmur at apex, PMI L LUNGS: Coarse sounds ABD: soft, NT, ND, +BS : Intact Neuro: non focal SKIN: chronic changes EXT: trace edema Results Result Diagram: 12/05/16 0757 12/05/16 0757 Results 24 hrs Laboratory Tests Test 12/05/16 07:57 White Blood Count 11.0 #H Red Blood Count 5.04 Hemoglobin 15.4 Hematocrit 47.1 Mean Corpuscular Volume 93.5 Mean Corpuscular Hemoglobin 30.6 Mean Corpuscular Hemoglobin Concent 32.7 Red Cell Distribution Width 13.7 Platelet Count 241 Mean Platelet Volume 9.3 Neutrophils % 65.1 Lymphocytes % 21.0 Monocytes % 8.6 Eosinophils % 3.0 Basophils % 0.8 Nucleated Red Blood Cells % 0.0 Neutrophils # 7.2 Lymphocytes # 2.3 Monocytes # 1.0 H Eosinophils # 0.3 Basophils # 0.1 Nucleated Red Blood Cells # 0.0 Sodium Level 132 L Potassium Level 3.7 Chloride Level 100 Carbon Dioxide Level 32 H Anion Gap 4 L Blood Urea Nitrogen 26 #H Creatinine 0.90 Glucose Level 100 Calcium Level 9.3 Total Bilirubin 0.9 Direct Bilirubin 0.00 Indirect Bilirubin 0.9 Aspartate Amino Transf (AST/SGOT) 1569 H Alanine Aminotransferase (ALT/SGPT) 2775 H Alkaline Phosphatase 192 H Total Protein 7.1 Albumin 3.3 Globulin 3.80 H Albumin/Globulin Ratio 0.86 Medications Medications Current Medications Ondansetron HCl (Zofran Inj) 4 mg Q6H PRN IV NAUSEA AND/OR VOMITING; Start 12/08 at 17:30 Acetaminophen (Tylenol Tab) 650 mg Q6H PRN PO PAIN LEVEL 1-3 OR FEVER; Start 12/01/16 at 17:30 Acetaminophen/ Hydrocodone Bitart ([employer] (5/325)) 1 tab Q6H PRN PO MODERATE PAIN LEVEL 4-6 Last administered on 12/04/16 20:25; Admin Dose 1 TAB; Start 12/01/16 at 17:30 Morphine Sulfate (morphine) 2 mg Q4H PRN IV SEVERE PAIN LEVEL 7-10 Last administered on 12/01/16 20:12; Admin Dose 2 MG; Start 12/01/16 at 17:30 Docusate Sodium (Colace) 100 mg Q12H PRN PO CONSTIPATION; Start 12/01/16 at 17 :30 Zolpidem Tartrate (Ambien) 5 mg QHS PRN PO SLEEP Last administered on 21:08; Admin Dose 5 MG; Start 12/01/16 at 17:30 Methocarbamol (Robaxin) 750 mg BID PRN PO MUSCLE SPASMS; Start 12/01/16 at 17: 30 Salmeterol Xinafoate/ Fluticasone (Advair 250/50 Diskus) 1 inh BID INH Last administered on 12/05/16 08:30; Admin Dose 1 INH; Start 12/01/16 at 21:00 Lorazepam (Ativan) 1 mg Q3H PRN IV ANXIETY Last administered on 12/03/16 00: 56; Admin Dose 1 MG; Start 12/01/16 at 21:30 Metoprolol Succinate (Toprol Xl) 50 mg BID PO Last administered on 12/05/16 08:31; Admin Dose 50 MG; Start 12/02/16 at 21:00 Amiodarone HCl (Cordarone) 200 mg TID PO Last administered on 12/03/16 13:26 ; Admin Dose 200 MG; Start 12/02/16 at 21:00; Status Future Hold Enoxaparin Sodium 60 mg 60 mg Q24H SC Last administered on 12/04/16 20:45; Admin Dose 60 MG; Start 12/02/16 at 20:00 Sodium Chloride 1,000 ml @ 30 mls/hr Q24H IV Last administered on 12/04/16 19:30; Admin Dose 30 MLS/HR; Start 12/02/16 at 19:30 Multivitamins/ Thiamine HCl/ Folic Acid/Sodium Chloride (Mvi Adult/ Vitamin B1/ Folic Acid/NS) 1,011.2 ml @ 40 mls/hr DAILY@09 IVPB Last administered on 12/05 08:32; Admin Dose 40 MLS/HR; Start 12/03/16 at 09:00 Nicotine (Nicoderm 21 Mg/ 24hr) 1 patch DAILY TRANSDERM Last administered on 08:30; Admin Dose 1 PATCH; Start 12/03/16 at 15:00 Diltiazem HCl (Cardizem Iv) 5 mg Q4 PRN IV HR>110 Hold SBP<100; Start at 20:30 Hydralazine HCl (Apresoline) 10 mg Q8 PO Last administered on 12/04/16 20:41 ; Admin Dose 10 MG; Start 12/04/16 at 22:00 SHAHBAZ RAMACHANDRAN MD Dec 05, 2016 13:38
[2016-12-05 14:01] LABS: ANA SCREEN NEGATIVE (NEGATIVE); MITOCHONDRIAL TB NEGATIVE (NEGATIVE)
--- NOTE | 2016-12-05 15:36 | CONS ---
Date/Time of Note Date/Time of Note DATE: 12/05/16 TIME: 15:35 Assessment/Plan Assessment/Plan Chief Complaint/Hosp Course 1. Acute kidney injury.BETTER 2. Prerenal azotemia, possibly induced by diuretic. 3. Hyperkalemia, worsened by Aldactone.BETTER 4. Underlying possible chronic obstructive pulmonary disease. 5. Underlying history of alcohol abuse, pending delirium tremens. 6. Low ejection fraction with history of systolic heart failure. 7. Rule out obstructive uropathy. 8 HYPONATREMIA PLAN CK BMP Problems: Consultation Date/Type/Reason Admit Date/Time Dec 01, 2016 at 14:16 Initial Consult Date 12/03/16 Type of Consultation: RENAL Referring Provider: TRUDI BARBOUR 24 HR Interval Summary Constitutional: no complaints Exam/Review of Systems Vital Signs Vitals Vital Signs Date Time Temp Pulse Resp B/P Pulse Ox O2 Delivery O2 Flow Rate FiO2 12/05/16 12:03 98.1 73 18 153/83 96 12/05/16 00:23 2.0 12/04/16 20:00 Nasal Cannula Intake and Output 12/04/16 12/04/16 12/05/16 15:00 23:00 07:00 Intake Total 1070 ml 80 ml Output Total 2000 ml Balance -930 ml 80 ml Exam Respiratory: clear to auscultation Cardiovascular: regular rate and rhythm Gastrointestinal: soft Extremities: No edema Results Result Diagram: 12/05/16 0757 12/05/16 0757 Results 24 hrs Laboratory Tests Test 12/05/16 07:57 White Blood Count 11.0 #H Red Blood Count 5.04 Hemoglobin 15.4 Hematocrit 47.1 Mean Corpuscular Volume 93.5 Mean Corpuscular Hemoglobin 30.6 Mean Corpuscular Hemoglobin Concent 32.7 Red Cell Distribution Width 13.7 Platelet Count 241 Mean Platelet Volume 9.3 Neutrophils % 65.1 Lymphocytes % 21.0 Monocytes % 8.6 Eosinophils % 3.0 Basophils % 0.8 Nucleated Red Blood Cells % 0.0 Neutrophils # 7.2 Lymphocytes # 2.3 Monocytes # 1.0 H Eosinophils # 0.3 Basophils # 0.1 Nucleated Red Blood Cells # 0.0 Sodium Level 132 L Potassium Level 3.7 Chloride Level 100 Carbon Dioxide Level 32 H Anion Gap 4 L Blood Urea Nitrogen 26 #H Creatinine 0.90 Glucose Level 100 Calcium Level 9.3 Total Bilirubin 0.9 Direct Bilirubin 0.00 Indirect Bilirubin 0.9 Aspartate Amino Transf (AST/SGOT) 1569 H Alanine Aminotransferase (ALT/SGPT) 2775 H Alkaline Phosphatase 192 H Total Protein 7.1 Albumin 3.3 Globulin 3.80 H Albumin/Globulin Ratio 0.86 Medications Medications Current Medications Ondansetron HCl (Zofran Inj) 4 mg Q6H PRN IV NAUSEA AND/OR VOMITING; Start 12/08 at 17:30 Acetaminophen (Tylenol Tab) 650 mg Q6H PRN PO PAIN LEVEL 1-3 OR FEVER; Start 12/01/16 at 17:30 Acetaminophen/ Hydrocodone Bitart ([place] (5/325)) 1 tab Q6H PRN PO MODERATE PAIN LEVEL 4-6 Last administered on 12/04/16 20:25; Admin Dose 1 TAB; Start 12/01/16 at 17:30 Morphine Sulfate (morphine) 2 mg Q4H PRN IV SEVERE PAIN LEVEL 7-10 Last administered on 12/01/16 20:12; Admin Dose 2 MG; Start 12/01/16 at 17:30 Docusate Sodium (Colace) 100 mg Q12H PRN PO CONSTIPATION; Start 12/01/16 at 17 :30 Zolpidem Tartrate (Ambien) 5 mg QHS PRN PO SLEEP Last administered on 21:08; Admin Dose 5 MG; Start 12/01/16 at 17:30 Methocarbamol (Robaxin) 750 mg BID PRN PO MUSCLE SPASMS; Start 12/01/16 at 17: 30 Salmeterol Xinafoate/ Fluticasone (Advair 250/50 Diskus) 1 inh BID INH Last administered on 12/05/16 08:30; Admin Dose 1 INH; Start 12/01/16 at 21:00 Lorazepam (Ativan) 1 mg Q3H PRN IV ANXIETY Last administered on 12/03/16 00: 56; Admin Dose 1 MG; Start 12/01/16 at 21:30 Metoprolol Succinate (Toprol Xl) 50 mg BID PO Last administered on 12/05/16 08:31; Admin Dose 50 MG; Start 12/02/16 at 21:00 Amiodarone HCl (Cordarone) 200 mg TID PO Last administered on 12/03/16 13:26 ; Admin Dose 200 MG; Start 12/02/16 at 21:00; Status Future Hold Enoxaparin Sodium 60 mg 60 mg Q24H SC Last administered on 12/04/16 20:45; Admin Dose 60 MG; Start 12/02/16 at 20:00 Sodium Chloride 1,000 ml @ 30 mls/hr Q24H IV Last administered on 12/04/16 19:30; Admin Dose 30 MLS/HR; Start 12/02/16 at 19:30 Multivitamins/ Thiamine HCl/ Folic Acid/Sodium Chloride (Mvi Adult/ Vitamin B1/ Folic Acid/NS) 1,011.2 ml @ 40 mls/hr DAILY@09 IVPB Last administered on 12/05 08:32; Admin Dose 40 MLS/HR; Start 12/03/16 at 09:00 Nicotine (Nicoderm 21 Mg/ 24hr) 1 patch DAILY TRANSDERM Last administered on 08:30; Admin Dose 1 PATCH; Start 12/03/16 at 15:00 Diltiazem HCl (Cardizem Iv) 5 mg Q4 PRN IV HR>110 Hold SBP<100; Start at 20:30 Hydralazine HCl (Apresoline) 10 mg Q8 PO Last administered on 12/05/16 13:51 ; Admin Dose 10 MG; Start 12/04/16 at 22:00 ALEN QUINTANILLA MD Dec 05, 2016 15:36
--- NOTE | 2016-12-05 23:42 | PN ---
DATE: 12/05/2016 CONDITION: Stable. The patient has been transferred out of medical ICU to the medical floor. The p atient denies any shortness of breath, chest pain, palpitations. PHYSICAL EXAMINATION: GENERAL: Young male, awake, alert, currently in no distress. VITAL SIGNS: Temperature is 98 degrees Fahrenheit, heart rate of 92 per minute, regular sinus rhyth m, blood pressure 130/90, respiratory rate is 18 per minute, O2 sat is 95% on room air. Urine outpu t is adequate. HEENT: Supple neck, positive JVD, no lymphadenopathy, midline trachea, no thyromegaly. Pharynx jay ar, no neck bruits. Patient has fair dentition. Pupils are mid size and reactive to light. CHEST: Clear to auscultation. HEART: S1, S2 audible. No murmurs, regular rhythm. ABDOMEN: Soft, nontender, nondistended. No organomegaly. Bowel sounds audible. EXTREMITIES: No edema. Pulses 2+ bilaterally. No clubbing. NEUROLOGIC: No focal deficit. LABORATORY DATA: Today, white count is 11, hemoglobin 15.4, platelet count of 241. Sodium 132, pot assium 3.7, chloride 100, bicarbonate 32, BUN 26, creatinine 0.9. MEDICATIONS: 1. Reviewed. The patient is currently on normal saline at [facility] 2. Amiodarone 200 mg t.i.d. 3. Cardizem on a p.r.n. basis IV. 4. Lovenox 60 mg q.24 hours. 5. Lasix 40 mg IV q.12 hours. 6. Hydralazine 25 mg q.8 hours. 7. Hydrocodone on a p.r.n. basis. 8. Xopenex and Atrovent q.8 hours. 9. Robaxin 750 mg b.i.d. 10. Metoprolol 50 mg b.i.d. 11. Nicotine patch 21 mg daily. 12. Advair 250/50 b.i.d. ASSESSMENT AND RECOMMENDATIONS: 1. Patient admitted with shortness of breath due to atrial fibrillation with RVR with conversion to sinus rhythm. 2. Underlying severe alcoholic cardiomyopathy with EF of around 20%; however, the patient is marked ly improved. 3. Hypertension. RECOMMENDATIONS: Continue current supportive care. Dictated By: EDDIE FOFANA/JOSÉ ANTONIO Conf#: [id number] [facility]#: [id number]
--- NOTE | 2016-12-06 19:37 | DS ---
Date/Time of Note Date/Time of Note DATE: 12/06/16 TIME: 19:32 Discharge Summary Admission/Discharge Info Admit Date/Time Dec 01, 2016 at 14:16 Discharge Date/Time Dec 05, 2016 at 13:28 Discharge Diagnosis 1. Acute respiratory distress secondary to CHF exacerbation and A. fib/flutter with RVR-resolved Patient converted to sinus rhythm, shortness of breath has resolved Patient discharged with Lasix and Toprol-XL and is to continue home Aldactone Cardiology consultation appreciated 2. Acute hepatitis-improving Etiology likely secondary to poor hemodynamics and poor RV function Ultrasound of the liver shows no significant findings but does show slightly enlarged liver with fatty infiltration Viral hepatitis panel is negative GI consultation appreciated 3. Acute kidney injury with hyperkalemia etiology is cardiorenal-resolved Patient has significant improvement with increased dose of Lasix suggesting cardiorenal Discharge home with Lasix, continue home Aldactone Nephrology consultation appreciated Status post Kayexalate p.o. x 1 4. Lactic acidosis secondary to hypoperfusion likely from poor cardiac output and/or hypoxemia-resolved 5. History of substance abuse Cessation advised 6. Leukocytosis-reactive No evidence of infection at this time UA is normal Patient Condition: Good Hospital Course Patient is a 51-year-old male with history of CHF with EF 20 % likely secondary to alcohol and substance abuse, hypertension or tobacco abuse. Patient presents with shortness of breath and chest discomfort, in the ER patient was found to be in A. fib/flutter with RVR. Patient was given multiple rounds of Cardizem and metoprolol IV with mild improvement of the heart rate for a short period time only to become tachycardic. Patient was put on Toprol XL and hydralazine and ultimately converted to sinus rhythm. She did have acute hepatitis and acute kidney injury it was felt to be secondary to poor hemodynamics poor RV function and cardio renal syndrome. Hepatitis and acute injury did resolve with diuresis, of note patient was seen by GI and nephrology. Patient's shortness of breath did resolve, on the day of discharge patient's vitals, labs physical exam stable, had no further acute complaints and questions were answered. Patient was advised on substance abuse and alcohol cessation Home Meds Active Scripts Furosemide* (Lasix*) 40 Mg Tablet, 40 MG PO DAILY, #30 TAB Prov:TRUDI BARBOUR 12/05/16 Metoprolol Succinate* (Toprol XL*) 50 Mg Tab.er.24h, 50 MG PO BID, #60 Prov:TRUDI BARBOUR 12/05/16 Reported Medications Salmeterol Xinaf/Fluticasone* (Advair*) 250-50 Diskus Inhaler, 1 INH INHALATION BID, #1 INHALER 12/01/16 Spironolactone* (Aldactone*) 25 Mg Tablet, 12.5 MG PO DAILY, #60 TAB 12/01/16 Methocarbamol* (Robaxin*) 750 Mg Tablet, 750 MG PO BID Y for MUSCLE SPASMS, TAB 12/01/16 Discontinued Reported Medications Clonidine Hcl* (Clonidine Hcl*) 0.3 Mg Tablet, 0.3 MG PO BID Y for HTN, TAB 11/14/16 Albuterol Sulfate* (Proair HFA*) 8.5 Gm Hfa.aer.ad, 2 PUFF INH Q6H Y for WHEEZING AND SOB, #1 INHALER 11/14/16 Discontinued Scripts [Thiamine] 100 MG TAB No Conflict Check, 100 MG PO DAILY, #30 Prov:REGDOMINIQUE TORRES 11/21/16 Spironolactone* (Aldactone*) 25 Mg Tablet, 12.5 MG PO DAILY for 30 Days, TAB Prov:REGIDORDOMINIQUE 11/21/16 Salmeterol Xinaf/Fluticasone* (Advair*) 250-50 Diskus Inhaler, 1 INH INH BID for 30 Days, #1 INH Prov:REGDOMINIQUE TORRES 11/21/16 Methocarbamol* (Methocarbamol*) 750 Mg Tablet, 1500 MG PO TID Y for muscle spasm , #15 TAB Prov:DOMINIQUE MEDINA 11/21/16 Furosemide* (Furosemide*) 40 Mg Tablet, 40 MG PO BID DIURETICS for 30 Days, #60 TAB Prov:DOMINIQUE MEDINA 11/21/16 Carvedilol* (Carvedilol*) 6.25 Mg Tablet, 6.25 MG PO BID for 30 Days, #60 TAB Prov:DOMINIQUE MEDINA 11/21/16 Follow-up Plan F/U WITH YOUR PCP IN 1-2 WEEKS Primary Care Provider Care Physician No Primary Time spent on discharge: > 30 minutes TRUDI BARBOUR Dec 06, 2016 19:37
== END 2016-12-05 13:28 | disposition home or self-care (01) | DRG 308 ==
LOC: E/R 10:57 → MS4 14:16 → ICU 12-03 17:33 → MS4 12-04 16:51
PROVIDERS: ADMIT Internal Medicine; ATTEND Internal Medicine
DX: I48.1 Persistent atrial fibrillation (principal); I50.23 Acute on chronic systolic (congestive) heart failure; N17.9 Acute kidney failure, unspecified; E87.2 Acidosis; B17.9 Acute viral hepatitis, unspecified; I11.0 Hypertensive heart disease with heart failure; I42.6 Alcoholic cardiomyopathy; E87.5 Hyperkalemia; I48.92 Unspecified atrial flutter; F17.210 Nicotine dependence, cigarettes, uncomplicated; F14.10 Cocaine abuse, uncomplicated; F10.10 Alcohol abuse, uncomplicated; E86.0 Dehydration
CPT/HCPCS: 36415; 36600; 71010; 76705; 80048; 80053; 80076; 80306; 81001; 81003; 82550; 82553; 82570; 82803; 83605; 83735; 83880; 84100; 84132; 84155; 84300; 84484; 85025; 85610; 85730; 86038; 86255; 86704; 86709; 86803; 87081; 87340; 90686; 93005; 94640; 94664; 96374; 96375; 96376; J1630; J1650; J1940; J2060; J2270; J3411; J3475; J7030; J7040

== ENCOUNTER 2017-07-15 05:29 | Emergency (ER) | END 2017-07-15 09:55 | disposition home or self-care (01) ==

== ENCOUNTER 2017-10-08 14:31 | Emergency (ER) | END 2017-10-08 16:24 | disposition left against medical advice (07) ==